=== PATIENT | female | born 1940 | race Caucasian/White ===

== ENCOUNTER 2017-09-22 16:20 | Emergency (ER) | payer MEDICARE, BC ==
[~2017-09-22] VITALS: Ht 165.1 cm; Wt 82.1 kg
[~2017-09-22 16:20] MED LIST: ACET500 PO; ASPI81CH PO; ATOR20 PO; Amiodarone HCl200 MG PO; B Complete1 EACH PO; B-121000 MC2 PO; CHRO200 PO; COENZYME Q-10200 MG PO; CYCL10 PO; Cinnamon500 MG PO; DIGO.25 PO; DIPATR PO; DM MEDS; DOCU100 PO; ESCI10; ESOM20; ESOM20 PO; ESOMEPRAZOLE MA40 MG PO; HYDACE5 PO; HYDCHL12.5 PO; HYDCHL25; HYDCHL25 PO; LEVE500 PO; LEVO750 PO; LISI5 PO; LOSA25 PO; MAGCHL64ER PO; METF500 PO; METF500C; METF500C PO; METFORMIN PO; METO100ER; METO100ER PO; METO25 PO; METO50ER PO; MULVITMIND PO; Metoprolol Succ25 MG PO; Nexium40 MG PO; Norco 5-325 Ta1 EACH PO; OMEG1CAP30 PO; OMEGA XL PO; OMEP20ER PO; OXYC5 PO; PARO20 PO; PIOG30 PO; PIOG45 PO; POTA10T PO; POTCHL10ER; POTCHL10ER PO; Prilosec Otc20 MG PO; RED YEAST RICE PO; REPA1 PO; ROXICODONE5 MG PO; SEIZURE MEDS; Tambocor100 MG PO; VITAMIN D33000 UNIT PO; WARF2.5 PO; WARF5 PO; WARF6 PO; WARF7.5 PO; XARELTO20 MG PO; Zofran Odt4 MG PO; Zofran4 MG PO
[2017-09-22 17:10] LABS: BASOPHILS ABSOLUTE AUTO 0.02 K/mm3 (0.00-0.23); BASOPHILS PERCENT AUTO 0 % (0-2); EOSINOPHILS PERCENT AUTO 0 % (0-6); Hematocrit 40.9 % (33.0-51.0); Hemoglobin 14.3 g/dL (11.5-16.0); IMMATURE GRAN ABSOLUTE AUTO 0.04 K/mm3 (0.00-0.10); IMMATURE GRAN PERCENT AUTO 0 % (0-1); LYMPHOCYTES ABSOLUTE AUTO 0.27 K/mm3 (0.84-5.20); LYMPHOCYTES PERCENT AUTO 2 % (21-46); MONOCYTES ABSOLUTE AUTO 0.24 K/mm3 (0.16-1.47); MONOCYTES PERCENT AUTO 2 % (4-13); Mean Corpuscular HGB 30.5 pg (26.0-34.0); Mean Corpuscular Volume 87 fL (80-100); Mean Platelet Volume 11.1 fL (9.1-12.4); NEUTROPHILS ABSOLUTE AUTO 10.66 K/mm3 (1.96-9.15); NEUTROPHILS PERCENT AUTO 95 % (41-73); Platelet Count 144 K/mm3 (150-400); RDW Coefficient Variation 12.7 % (11.7-14.2); RDW Standard Deviation 40.2 fL (35.1-46.3); Red Blood Cell Count 4.69 M/mm3 (3.80-5.20); White Blood Cell Count 11.23 K/mm3 (4.00-11.30)
[2017-09-22 17:21] LABS: Source, Urine Catheter
[2017-09-22 17:25] LABS: Appearance, Urine Clear (Clear); Blood, Urine Neg (Neg); Color, Urine Yellow (P-Yellow); Glucose Qualitative, Urine Neg (Neg); Ketones, Urine 1+ (Neg); Leukocyte Esterase, Urine 1+ (Neg); Nitrite, Urine Pos (Neg); Protein, Urine Neg (Neg); Urobilinogen, Urine 2+ (Normal)
[2017-09-22 17:31] LABS: Alanine Aminotransfer (ALT/SGP 197 U/L (12-78); Albumin, Blood 3.8 g/dL (3.4-5.0); Albumin/Globulin Ratio 1.2 (0.8-1.8); Alk Phos 91 U/L (50-136); Anion Gap 14 mmol/L (6-16); Aspartate Aminotrans (AST/SGOT 258 U/L (12-37); Bilirubin, Total 2.2 mg/dL (0.1-1.0); Blood Urea Nitrogen 17 mg/dL (8-24); Bun/Creatinine Ratio 22.3 (12.0-20.0); CO2, Blood 22 mmol/L (21-32); Calcium, Blood 9.1 mg/dL (8.5-10.1); Chloride, Blood 98 mmol/L (98-108); Creatinine, Blood 0.76 mg/dL (0.40-1.00); Globulin, Blood 3.1 g/dL (2.2-4.0); Glomerular Filtration Rate >60 (60-); Glucose, Blood 151 mg/dL (70-99); Potassium, Blood 3.3 mmol/L (3.5-5.5); Sodium, Blood 134 mmol/L (136-145); Total Protein, Blood 6.9 g/dL (6.4-8.2)
[2017-09-22 17:39] LABS: Bilirubin, Urine 1+ (Neg)
[2017-09-22 17:42] LABS: Bacteria Many /hpf; Squamous Epithelial Cells Rare /hpf (Few)
[2017-09-22] MEDS ORDERED: WARF6 PO (19:53)
[2017-09-22] MEDS ORDERED: WARF1 PO (19:58)
[2017-09-22] MEDS ORDERED: WARF5 PO (20:00)
== END 2017-09-22 20:17 | disposition short-term general hospital (02) ==
LOC: ER 16:20
PROVIDERS: Physician Assistant
DX: K80.70 Calculus of gallbladder and bile duct without cholecystitis without obstruction (principal); K85.10 Biliary acute pancreatitis without necrosis or infection; N39.0 Urinary tract infection, site not specified; I10 Essential (primary) hypertension; E11.9 Type 2 diabetes mellitus without complications; I48.91 Unspecified atrial fibrillation; K21.9 Gastro-esophageal reflux disease without esophagitis; G40.909 Epilepsy, unspecified, not intractable, without status epilepticus; Z88.5 Allergy status to narcotic agent; Z88.0 Allergy status to penicillin; Z88.8 Allergy status to other drugs, medicaments and biological substances; Z88.6 Allergy status to analgesic agent; Z79.899 Other long term (current) drug therapy; Z79.84 Long term (current) use of oral hypoglycemic drugs; Z79.82 Long term (current) use of aspirin; Z87.891 Personal history of nicotine dependence
CPT/HCPCS: 36415; 74176; 80053; 81001; 83690; 85025; 87077; 87086; 87186; 93005; 93010; 96365; 96367; 96375; 96376; 99285; J0696; J0744; J1170; J2405; J7120

== ENCOUNTER 2018-03-05 06:15 | Day surgery (SDC) | payer MEDICARE, BC ==
[~2018-03-05] VITALS: Ht 167.6 cm; Wt 75.8 kg
[~2018-03-05 06:15] MED LIST changes: +WARF1 PO
== END 2018-03-05 08:18 | disposition home or self-care (01) ==
LOC: ORSCSDS 06:15
PROVIDERS: Ophthalmology
PROC: 08RK3JZ Replacement of Left Lens with Synthetic Substitute, Percutaneous Approach (ICD-10-PCS; principal; 2018-03-05 07:30)
DX: H25.12 Age-related nuclear cataract, left eye (principal); E11.36 Type 2 diabetes mellitus with diabetic cataract; F32.9 Major depressive disorder, single episode, unspecified; E78.00 Pure hypercholesterolemia, unspecified; I10 Essential (primary) hypertension; J45.909 Unspecified asthma, uncomplicated; I48.91 Unspecified atrial fibrillation; Z87.891 Personal history of nicotine dependence; Z79.82 Long term (current) use of aspirin; Z79.84 Long term (current) use of oral hypoglycemic drugs; Z79.899 Other long term (current) drug therapy
CPT/HCPCS: 82947; J2250; J3010; J3301; J7040; V2632

== ENCOUNTER 2018-11-02 20:51 | Emergency (ER) | payer MEDICARE, BC ==
[~2018-11-02] VITALS: Ht 165.1 cm; Wt 72.6 kg
[2018-11-02 22:06] LABS: BASOPHILS ABSOLUTE AUTO 0.04 K/mm3 (0.00-0.23); BASOPHILS PERCENT AUTO 1 % (0-2); EOSINOPHILS ABSOLUTE AUTO 0.13 K/mm3 (0.00-0.68); EOSINOPHILS PERCENT AUTO 2 % (0-6); Hematocrit 46.1 % (33.0-51.0); Hemoglobin 16.1 g/dL (11.5-16.0); IMMATURE GRAN ABSOLUTE AUTO 0.02 K/mm3 (0.00-0.10); IMMATURE GRAN PERCENT AUTO 0 % (0-1); LYMPHOCYTES ABSOLUTE AUTO 1.06 K/mm3 (0.84-5.20); LYMPHOCYTES PERCENT AUTO 19 % (21-46); MONOCYTES ABSOLUTE AUTO 0.59 K/mm3 (0.16-1.47); MONOCYTES PERCENT AUTO 11 % (4-13); Mean Corpuscular HGB 31.1 pg (26.0-34.0); Mean Corpuscular HGB Conc 34.9 g/dL (31.5-36.5); Mean Corpuscular Volume 89 fL (80-100); Mean Platelet Volume 10.9 fL (9.1-12.4); NEUTROPHILS ABSOLUTE AUTO 3.64 K/mm3 (1.96-9.15); NEUTROPHILS PERCENT AUTO 66 % (41-73); Platelet Count 174 K/mm3 (150-400); RDW Coefficient Variation 12.3 % (11.7-14.2); RDW Standard Deviation 40.4 fL (35.1-46.3); Red Blood Cell Count 5.18 M/mm3 (3.80-5.20); White Blood Cell Count 5.48 K/mm3 (4.00-11.30)
[2018-11-02 22:25] LABS: Alanine Aminotransfer (ALT/SGP 36 U/L (12-78); Albumin, Blood 3.9 g/dL (3.4-5.0); Albumin/Globulin Ratio 1.2 (0.8-1.8); Alk Phos 83 U/L (50-136); Anion Gap 8 mmol/L (6-16); Aspartate Aminotrans (AST/SGOT 22 U/L (12-37); Bilirubin, Total 0.4 mg/dL (0.1-1.0); Blood Urea Nitrogen 19 mg/dL (8-24); Bun/Creatinine Ratio 26.1 (12.0-20.0); CO2, Blood 29 mmol/L (21-32); Calcium, Blood 9.2 mg/dL (8.5-10.1); Chloride, Blood 100 mmol/L (98-108); Creatinine, Blood 0.73 mg/dL (0.40-1.00); Globulin, Blood 3.3 g/dL (2.2-4.0); Glomerular Filtration Rate >60 (60-); Glucose, Blood 139 mg/dL (70-99); Potassium, Blood 3.9 mmol/L (3.5-5.5); Sodium, Blood 137 mmol/L (136-145); Total Protein, Blood 7.2 g/dL (6.4-8.2); Troponin I <0.015 ng/mL (0.000-0.040)
[2018-11-02 23:17] LABS: Magnesium, Blood 1.7 mg/dL (1.6-2.4)
[2018-11-02 23:18] LABS: Thyroid Stimulating Hormone 1.97 uIU/mL (0.360-4.800)
== END 2018-11-03 01:12 | disposition home or self-care (01) ==
LOC: ER 20:51
PROVIDERS: Emergency Medicine
DX: I48.91 Unspecified atrial fibrillation (principal); E11.9 Type 2 diabetes mellitus without complications; I10 Essential (primary) hypertension; Z88.6 Allergy status to analgesic agent; Z88.0 Allergy status to penicillin; Z88.5 Allergy status to narcotic agent; Z88.8 Allergy status to other drugs, medicaments and biological substances; Z79.84 Long term (current) use of oral hypoglycemic drugs; Z79.899 Other long term (current) drug therapy; Z87.891 Personal history of nicotine dependence
CPT/HCPCS: 71046; 80053; 83735; 83880; 84443; 84484; 85025; 93005; 93010; J7030

== ENCOUNTER 2018-12-19 00:19 | Observation (INO) | payer MEDICARE, OTHER, BC ==
[~2018-12-19] VITALS: Ht 167.6 cm; Wt 79.4 kg
[~2018-12-19 00:19] MED LIST changes: -METFORMIN PO
[2018-12-19 00:43] LABS: BASOPHILS ABSOLUTE AUTO 0.07 K/mm3 (0.00-0.23); BASOPHILS PERCENT AUTO 1 % (0-2); EOSINOPHILS ABSOLUTE AUTO 0.17 K/mm3 (0.00-0.68); EOSINOPHILS PERCENT AUTO 2 % (0-6); Hematocrit 45.1 % (33.0-51.0); Hemoglobin 15.4 g/dL (11.5-16.0); IMMATURE GRAN ABSOLUTE AUTO 0.05 K/mm3 (0.00-0.10); IMMATURE GRAN PERCENT AUTO 1 % (0-1); LYMPHOCYTES ABSOLUTE AUTO 4.29 K/mm3 (0.84-5.20); LYMPHOCYTES PERCENT AUTO 40 % (21-46); MONOCYTES ABSOLUTE AUTO 0.73 K/mm3 (0.16-1.47); MONOCYTES PERCENT AUTO 7 % (4-13); Mean Corpuscular HGB 30.9 pg (26.0-34.0); Mean Corpuscular HGB Conc 34.1 g/dL (31.5-36.5); Mean Corpuscular Volume 90 fL (80-100); Mean Platelet Volume 10.9 fL (9.1-12.4); NEUTROPHILS ABSOLUTE AUTO 5.56 K/mm3 (1.96-9.15); NEUTROPHILS PERCENT AUTO 51 % (41-73); Platelet Count 208 K/mm3 (150-400); RDW Standard Deviation 42.5 fL (35.1-46.3); Red Blood Cell Count 4.99 M/mm3 (3.80-5.20); White Blood Cell Count 10.87 K/mm3 (4.00-11.30)
[2018-12-19 01:03] LABS: Alanine Aminotransfer (ALT/SGP 27 U/L (12-78); Albumin/Globulin Ratio 1.2 (0.8-1.8); Alk Phos 84 U/L (50-136); Anion Gap 16 mmol/L (6-16); Aspartate Aminotrans (AST/SGOT 13 U/L (12-37); Bilirubin, Total 0.4 mg/dL (0.1-1.0); Blood Urea Nitrogen 17 mg/dL (8-24); Bun/Creatinine Ratio 19.5 (12.0-20.0); CO2, Blood 20 mmol/L (21-32); Calcium, Blood 9.3 mg/dL (8.5-10.1); Chloride, Blood 97 mmol/L (98-108); Creatinine, Blood 0.87 mg/dL (0.40-1.00); Ethanol (Alcohol), Blood, Med <3 mg/dL; Globulin, Blood 3.3 g/dL (2.2-4.0); Glomerular Filtration Rate >60 (60-); Glucose, Blood 159 mg/dL (70-99); Potassium, Blood 3.5 mmol/L (3.5-5.5); Sodium, Blood 133 mmol/L (136-145); Total Protein, Blood 7.3 g/dL (6.4-8.2)
[2018-12-19 01:50] LABS: Source, Urine Clean Catch
[2018-12-19 01:52] LABS: Bilirubin, Urine Neg (Neg); Blood, Urine 1+ (Neg); Glucose Qualitative, Urine Neg (Neg); Ketones, Urine 1+ (Neg); Leukocyte Esterase, Urine 1+ (Neg); Nitrite, Urine Neg (Neg); Protein, Urine 2+ (Neg); Urobilinogen, Urine NORM (Normal)
[2018-12-19 01:53] LABS: Appearance, Urine Clear (Clear); Color, Urine Yellow (P-Yellow)
[2018-12-19 02:02] LABS: Bacteria Mod /hpf; Red Blood Cells, Urine 0-2 /hpf (0-2); Squamous Epithelial Cells Not Seen /hpf (Few); White Blood Cells, Urine 0-2 /hpf (0-5)
[2018-12-19 02:05] LABS: U Amphetamine Screen Not Detected; U Barbituate Screen Not Detected; U Benzodiazapine Screen Not Detected; U Buprenorphine Screen Not Detected; U Cannabinoids Screen Not Detected; U Cocaine Screen Not Detected; U Methadone Screen Not Detected; U Methamphetamine Screen Not Detected; U Opiates Screen Not Detected; U Oxycodone Screen Not Detected; U Phencyclidine Screen Not Detected; U Propoxyphene Screen Not Detected
[2018-12-19] MEDS ORDERED: OXYC5 PO (02:30)
[2018-12-19] MEDS ORDERED: LEVE500 PO (02:30)
[2018-12-19] MEDS ORDERED: WARF5 PO (02:32)
[2018-12-19] MEDS ORDERED: WARF7.5 PO (02:33)
[2018-12-19 03:51] LABS: Source, Urine Catheter
[2018-12-19 03:54] LABS: Bilirubin, Urine Neg (Neg); Blood, Urine 1+ (Neg); Glucose Qualitative, Urine Neg (Neg); Ketones, Urine Neg (Neg); Leukocyte Esterase, Urine Neg (Neg); Nitrite, Urine Neg (Neg); Protein, Urine 1+ (Neg); Urobilinogen, Urine NORM (Normal); pH, Urine 6.5 (5.0-8.0)
[2018-12-19 03:55] LABS: Appearance, Urine Clear (Clear); Color, Urine Yellow (P-Yellow)
[2018-12-19 04:00] LABS: Bacteria Mod /hpf; Red Blood Cells, Urine 0-2 /hpf (0-2); Squamous Epithelial Cells Not Seen /hpf (Few); White Blood Cells, Urine 0-2 /hpf (0-5)
--- NOTE | 2018-12-19 05:45 | NUR ---
0435 PT ARRIVED TO ICU 12 FROM ER PCU ADMIT. PT IS A/O TO PERSON, PLACE, CITY, DATE, AND PRESIDENT. C/O CORTES AND KEEPS EYE'S CLOSED. AT 0508 PT YELLING "I'M GOING TO HAVE ANOTHER SEIZURE!" PT STARTED VOMITING THICK EMESIS. BP HAS BEEN ELEVATED BUT TALKED TO DR. AGUIRRE ABOUT THAT EARLIER AND GOT ORDERS FOR HYDRALAZINE. GAVE 2MG OF ATIVAN. AFTER ATIVAN PT IS SLEEPY. WILL MUMBLE RESPONSES TO QUESTIONS. AT 0528 PT HAD A 6 SECOND PAUSE ON TELEMETRY. PT STILL AROUSES AND MUMBLES. WHEN ASKED IF SHE HAS PAIN SHE MUMBLES "YES IN MY HEAD". CALLED DR. AGUIRRE AND REPORTED EVENTS. NO NEW ORDERS. LAB IN DRAWING AM LABS NOW. WILL MONITOR CLOSELY, NO FAMILY PRESENT.
[2018-12-19 06:15] LABS: Hematocrit 42.2 % (33.0-51.0); Hemoglobin 14.9 g/dL (11.5-16.0); Mean Corpuscular HGB 30.3 pg (26.0-34.0); Mean Corpuscular HGB Conc 35.3 g/dL (31.5-36.5); Mean Platelet Volume 11.1 fL (9.1-12.4); Platelet Count 163 K/mm3 (150-400); RDW Coefficient Variation 12.6 % (11.7-14.2); RDW Standard Deviation 39.1 fL (35.1-46.3); Red Blood Cell Count 4.92 M/mm3 (3.80-5.20); White Blood Cell Count 11.39 K/mm3 (4.00-11.30)
[2018-12-19 06:16] LABS: Mean Corpuscular Volume 86 fL (80-100)
[2018-12-19 06:30] LABS: Alanine Aminotransfer (ALT/SGP 23 U/L (12-78); Albumin, Blood 3.7 g/dL (3.4-5.0); Albumin/Globulin Ratio 1.2 (0.8-1.8); Alk Phos 70 U/L (50-136); Anion Gap 10 mmol/L (6-16); Aspartate Aminotrans (AST/SGOT 14 U/L (12-37); Bilirubin, Total 0.5 mg/dL (0.1-1.0); Blood Urea Nitrogen 14 mg/dL (8-24); Bun/Creatinine Ratio 22.1 (12.0-20.0); CO2, Blood 25 mmol/L (21-32); Calcium, Blood 8.6 mg/dL (8.5-10.1); Chloride, Blood 99 mmol/L (98-108); Creatinine, Blood 0.63 mg/dL (0.40-1.00); Globulin, Blood 3.2 g/dL (2.2-4.0); Glomerular Filtration Rate >60 (60-); Glucose, Blood 170 mg/dL (70-99); Potassium, Blood 3.4 mmol/L (3.5-5.5); Sodium, Blood 134 mmol/L (136-145); Total Protein, Blood 6.9 g/dL (6.4-8.2)
--- NOTE | 2018-12-19 06:41 | NUR ---
PT HAD 2 MORE 8 SECOND PAUSES ON TELEMETRY. PT WILL AROUSE TO PAINFUL STIMULUS AND MUMBLES RESPONSES. HYDRALAZINE WAS GIVEN FOR HYPERTENSION. DID NOT START IVF DUE TO HYPERTENSION.
[2018-12-19 07:06] LABS: International Normalized Ratio 2.55; Prothrombin Time Results 24.8 Sec (9.7-11.5)
--- NOTE | 2018-12-19 07:41 | NUR ---
START OF SHIFT NOTE: RECEIVED REPORT FROM GALI RUBIO, ASSUMED CARE, PATIENT IS LYING IN BED, RECEIVED ATIVAN DURING NOC SHIFT AND IS SEDATED AT THIS TIME, UNABLE TO ANSWER ANY QUESTIONS, REPOSITIONED FOR COMFORT, PATIENT'S DAUGHTER CALLED AND WAS GIVEN AN UPDATE ON PATIENT CONDITION, LUNG SOUNDS DIMINISHED, SINUS TACHY, PATIENT AT TIMES THRASHING IN BED, BOWEL TONES PRESENT AND HYPERATIVE IN LUQ, HYPOACTIVE IN REMAINING QUADRANTS, BAUM CATHETER IN PLACE, DRAINING CLEAR YELLOW URINE, CALL LIGHT IN REACH, WILL CONTINUE TO MONITOR.
--- NOTE | 2018-12-19 08:45 | NUR ---
MRI SCREENING FORM CHECKED WITH DAUGHTER AND RETURNED TO MRI.
--- NOTE | 2018-12-19 09:07 | NUR ---
PATIENT CONTINUES TO BE SEDATED, DAUGHTER AT BEDSIDE, SPOKE WITH CARL, SECOND DAUGHTER ON PHONE, OBTAINED HISTORY FROM CRAL, BOTH DAUGHTERS WERE UPDATED ON PATIENT STATUS, CALL LIGHT IN REACH, WILL CONTINUE TO MONITOR.
--- NOTE | 2018-12-19 10:30 | NUR ---
PATIENT TO MRI VIA BED.
--- NOTE | 2018-12-19 10:55 | NUR ---
PATIENT RETURNED FROM MRI AT 10:55 VIA BED, PATIENT IS NOW ALERT AND ORIENTED, ABLE TO FOLLOW COMMANDS, SPEECH IS GOOD, DAUGHTER AT BEDSIDE, CALL LIGHT IN REACH, WILL CONTINUE TO MONITOR.
--- NOTE | 2018-12-19 12:43 | NUR ---
DR. EGAN UPDATED ON PATIENT CONDITION AND NEW ORDER FOR BG CHECKS EVERY 6 HOURS RECEIVED.
--- NOTE | 2018-12-19 13:53 | NUR ---
PATIENT CONTINUES TO SLEEP WITH PERIODS OF SHORT AWAKENINGS, WILL ATTEMPT ICE CHIPS WHEN PATIENT IS WIDE AWAKE, ALSO GAVE 5MG METOPROLOL IV ORDERED FOR A CONTINUOUS HR OF 125 TO 128, DAUGHTER AND FAMILY MEMBERS AT BEDSIDE, CALL LIGHT IN REACH, WILL CONTINUE TO MONITOR.
--- NOTE | 2018-12-19 14:58 | NUR ---
PATIENT HAD A 9.694 PAUSE AFTER RECEIVING IV METOPROLOL FOR A-FIB WITH HR IN MID TO UPPER 120'S ORDERED, DR. EGAN NOTIFIED, CARDIOLOGY CONSULT CALLED, EKG DONE, ECHO ORDERED PER DR. CARRILLO, PATIENT TOLERATED WELL, PATIENT IS ASYMPTOMATIC, CALL LIGHT IN REACH, WILL CONTINUE TO MONITOR.
--- NOTE | 2018-12-19 15:27 | NUR ---
ECHOCARDIOGRAM COMPLETE
--- NOTE | 2018-12-19 15:30 | NUR ---
DR. CARRILLO IN TO SEE PATIENT AND SPEAK WITH DAUGHTER AT BEDSIDE.
--- NOTE | 2018-12-19 16:25 | NUR ---
DR. CARRILLO IN, OBTAINED CONSENT FROM DAUGHTER FOR PPM PLACEMENT, PATIENT WILL RECEIVE ONE TIME DOSE OF K-DUR TONIGHT, NPO AFTER MIDNIGHT, PATIENT WILL RECEIVE 2 UNITS OF FFP'S AT 5 AM TOMORROW MORNING BEFORE PERMANENT PACEMAKER PLACEMENT, ALSO PLACE PACER PADS ON PATIENT.
--- NOTE | 2018-12-19 17:32 | NUR ---
SHIFT SUMMARY NOTE: PATIENT SLEPT MOST OF THE SHIFT, HAD RECEIVED ATIVAN DURING MOBILE APPLICATION TESTER AND THEN RECEIVED 50 MCG OF FENTANYL FOR HEADACHE AND GENERALIZED PAIN, MRI WAS DONE AND PATIENT TOLERATED WELL, AFTER MRI PATIENT WAS RETURNED TO ROOM AND WAS ALERT AND ORIENTED, ABLE TO FOLLOW COMMANDS AND ANSWER QUESTIONS, PATIENT WAS OBSERVED TO HAVE A 9.[address] EGAN WAS NOTIFIED, CARDIOLOGY CONSULTED, DR. CARRILLO IN TO SEE PATIENT AND NEW ORDERS WERE GIVEN, PATIENT WILL HAVE PERMANENT PACEMAKER PLACED TOMORROW, NPO AFTER MIDNIGHT, TO BE GIVEN 2 UNITS OF FFP'S AT 0500 ORDERED, TEMPORARY PACER PADS ARE ON PATIENT, PATIENT TOOK K-DUR PILLS WITH SOME WATER AND ICE CHIPS, NO PROBLEM SWALLOWING, DINNER ORDERED, PATIENT SLEEPING AGAIN, FOR DETAILS SEE SHIFT ASSESSMENT DOCUMENTATION AND NURSES NOTES, CALL LIGHT IN REACH, WILL CONTINUE TO MONITOR AND GIVE REPORT TO ONCOMING MOBILE APPLICATION TESTER.
[2018-12-19 17:45] LABS: Troponin I 0.112 ng/mL (0.000-0.040)
[2018-12-19 17:48] LABS: Thyroid Stimulating Hormone 0.872 uIU/mL (0.360-4.800)
--- NOTE | 2018-12-19 19:15 | NUR ---
ASSUMED CARE OF PT, REPORT RCV'D FROM GALI CHOPRA. PT SLEEPING BUT AROUSABLE LAYING IN BED WITH HOB AT 40 DEGREE ANGLE. PT'S DAUGHTER'S AT BEDSIDE INQUIRING ABOUT MOTHER'S CURRENT CONDITION AND PLANS FOR INTERVENTIONS, I.E. PACEMAKER, IN A.M. PT APPEARS VERY DROWSY BUT IS ABLE TO AROUSE AND FOLLOW COMMANDS. PT COMPLAINS OF LEFT SHOULDER PAIN, PT STATES THIS PAIN BEGAN YESTERDAY BUT DENIES ANY ACCOMPANYING CHEST OR RADIATING PAIN. POSITIONED ARM ON PILLOW AND READJUSTED PT IN BED AND PT REPORTS SLIGHT RELIEF. PT AWARE OF PLAN TO INFUSE 2 UNITS FFP AND TO IMPLANT PERMANENT PACEMAKER IN MORNING. PT DENIES NEEDS AT THIS TIME. SEE FULL SHIFT ASSESSMENT.
[2018-12-20 05:22] LABS: International Normalized Ratio 2.02; Prothrombin Time Results 20.1 Sec (9.7-11.5)
--- NOTE | 2018-12-20 06:17 | NUR ---
SHIFT SUMMARY PT SLEPT WELL THROUGHOUT THE NIGHT. NO PERIODS OF CARDIAC PAUSE AFTER 1900. PT WAS HYPOTENSIVE THROUGHOUT MAJORITY OF THE NIGHT IS CURRENTLY NORMOTENSIVE WITH NO INTERVENTIONS NEEDED. PT RECEIVING UNIT [address] CARRILLO IN TO SEE PATIENT THIS MORNING TO DISCUSS UPCOMING PROCEDURE. PT DENIES QUESTIONS REGARDING PACER PLACEMENT. WILL REPORT TO DAYSHIFT NURSE.
--- NOTE | 2018-12-20 07:15 | NUR ---
START OF SHIFT NOTE: RECEIVED REPORT FROM SANTOS BARROW RN, ASSUMED CARE, PATIENT IS AWAKE, ALERT AND ORIENTED, DAUGHTERS AT BEDSIDE, PATIENT IS NPO FOR PENDING PERMANENT PACEMAKER PLACEMENT, LUNG SOUNDS CLEAR BUT DIMINISHED, NSR AT THIS TIME WITH HR IN 70'S, DENIES PAIN, AFEBRILE, CALL LIGHT IN REACH, WILL CONTINUE TO MONITOR.
--- NOTE | 2018-12-20 08:20 | NUR ---
DR. EGAN IN TO SEE PATIENT, NO NEW ORDERS RECEIVED.
--- NOTE | 2018-12-20 09:25 | NUR ---
PATIENT TO CLINIC OFFICE ASSISTANT FOR PPM PLACEMENT VIA BED.
--- NOTE | 2018-12-20 12:23 | NUR ---
PATIENT RETURNED FROM [facility] VIA BED, PATIENT IS AWAKE AND ALERT AND ORIENTED, FOLLOWS COMMANDS, LEFT UPPER EXTREMITY BANDAGED, PATIENT INSTRUCTED TO NOT USE LEFT ARM TO PUSH/PULL/LIFT, DISCHARGE ORDERS RECEIVED, FAMILY AT BEDSIDE, CALL LIGHT IN REACH, WILL CONTINUE TO MONITOR.
[2018-12-20] MEDS ORDERED: LEVE500 PO (13:32)
--- NOTE | 2018-12-20 13:49 | NUR ---
PATIENT EATING LUNCH WITH GOOD APPETITE, FAMILY AT BEDSIDE, CALL LIGHT IN REACH, WILL CONTINUE TO MONITOR, VSS AT THIS TIME.
--- NOTE | 2018-12-20 14:30 | NUR ---
CALLED DR. CAMPOS, HE WANTS TO SEE PATIENT IN ONE WEEK FOR WOUND CHECK, WILL NOT COME BY BEFORE DISCHARGE.
--- NOTE | 2018-12-20 16:05 | NUR ---
PATIENT DISCHARGED TO HOME, DISCHARGE PAPERWORK WRITTEN AND VERBAL PROVIDED AND EXPLAINED TO PATIENT AND DAUGHTER, BOTH VERBALIZED UNDERSTANDING, BAUM CATHETER WAS REMOVED AND PATIENT TOLERATED WELL, PIV'S ON RFA AND LAC WERE REMOVED, BOTH WITH TIPS AND CATHETERS INTACT, PATIENT TOLERATED WELL, PATIENT WAS DRESSED, AND LEFT HOSPITAL VIA WHEELCHAIR, DAUGHTER PROVIDED RIDE HOME.
== END 2018-12-20 16:04 | disposition home or self-care (01) ==
LOC: ER 00:19 → ICUW 00:20
PROVIDERS: Emergency Medicine; Internal Medicine Cardiovascular Disease; ADMIT Internal Medicine
DX: G40.909 Epilepsy, unspecified, not intractable, without status epilepticus (principal); I49.5 Sick sinus syndrome; I48.0 Paroxysmal atrial fibrillation; R29.898 Other symptoms and signs involving the musculoskeletal system; R82.90 Unspecified abnormal findings in urine; I67.9 Cerebrovascular disease, unspecified; E11.9 Type 2 diabetes mellitus without complications; I10 Essential (primary) hypertension; E78.5 Hyperlipidemia, unspecified; I65.23 Occlusion and stenosis of bilateral carotid arteries; I65.02 Occlusion and stenosis of left vertebral artery; F32.9 Major depressive disorder, single episode, unspecified; Z88.6 Allergy status to analgesic agent; Z88.8 Allergy status to other drugs, medicaments and biological substances; Z79.899 Other long term (current) drug therapy; Z88.5 Allergy status to narcotic agent; Z88.0 Allergy status to penicillin
CPT/HCPCS: 33208; 36415; 36430; 51702; 70450; 70496; 70498; 70551; 71045; 71046; 80053; 81001; 82947; 84145; 84146; 84443; 84484; 85025; 85027; 85610; 86900; 86901; 87086; 93005; 93010; 93308; 93321; 96365; 96365-59; 96375; 96375-59; 96376; 99152; 99153; 99285-25; C1785; C1898; G0378; G0480; J0360; J1953; J2060; J2250; J2405; J3010; J7030; P9059; P9612; Q9967

== ENCOUNTER 2019-06-12 21:08 | Inpatient (IN) | payer MEDICARE, BC ==
[~2019-06-12] VITALS: Ht 165.1 cm; Wt 84.7 kg
[2019-06-12] MEDS ORDERED: OXYC5 PO (21:29)
[2019-06-12 21:34] LABS: BASOPHILS ABSOLUTE AUTO 0.05 K/mm3 (0.00-0.23); BASOPHILS PERCENT AUTO 1 % (0-2); EOSINOPHILS ABSOLUTE AUTO 0.15 K/mm3 (0.00-0.68); EOSINOPHILS PERCENT AUTO 2 % (0-6); Hematocrit 42.5 % (33.0-51.0); Hemoglobin 14.5 g/dL (11.5-16.0); IMMATURE GRAN ABSOLUTE AUTO 0.03 K/mm3 (0.00-0.10); IMMATURE GRAN PERCENT AUTO 0 % (0-1); LYMPHOCYTES ABSOLUTE AUTO 2.02 K/mm3 (0.84-5.20); LYMPHOCYTES PERCENT AUTO 27 % (21-46); MONOCYTES ABSOLUTE AUTO 0.54 K/mm3 (0.16-1.47); MONOCYTES PERCENT AUTO 7 % (4-13); Mean Corpuscular HGB 30.8 pg (26.0-34.0); Mean Corpuscular HGB Conc 34.1 g/dL (31.5-36.5); Mean Corpuscular Volume 90 fL (80-100); Mean Platelet Volume 10.9 fL (9.1-12.4); NEUTROPHILS ABSOLUTE AUTO 4.59 K/mm3 (1.96-9.15); NEUTROPHILS PERCENT AUTO 62 % (41-73); Platelet Count 179 K/mm3 (150-400); RDW Standard Deviation 42.9 fL (35.1-46.3); Red Blood Cell Count 4.71 M/mm3 (3.80-5.20); White Blood Cell Count 7.38 K/mm3 (4.00-11.30)
[2019-06-12 21:48] LABS: Alanine Aminotransfer (ALT/SGP 31 U/L (12-78); Albumin, Blood 3.8 g/dL (3.4-5.0); Albumin/Globulin Ratio 1.2 (0.8-1.8); Alk Phos 90 U/L (50-136); Anion Gap 9 mmol/L (6-16); Aspartate Aminotrans (AST/SGOT 16 U/L (12-37); Bilirubin, Total 0.3 mg/dL (0.1-1.0); Blood Urea Nitrogen 22 mg/dL (8-24); Bun/Creatinine Ratio 29.8 (12.0-20.0); CO2, Blood 27 mmol/L (21-32); Calcium, Blood 8.9 mg/dL (8.5-10.1); Chloride, Blood 102 mmol/L (98-108); Creatinine, Blood 0.74 mg/dL (0.40-1.00); Globulin, Blood 3.2 g/dL (2.2-4.0); Glomerular Filtration Rate >60 (60-); Glucose, Blood 209 mg/dL (70-99); Potassium, Blood 3.4 mmol/L (3.5-5.5); Sodium, Blood 138 mmol/L (136-145); Troponin I <0.015 ng/mL (0.000-0.040)
[2019-06-13] LABS: International Normalized Ratio 2.13; Prothrombin Time Results 21.1 Sec (9.7-11.5)
[2019-06-13 05:09] LABS: Hematocrit 37.9 % (33.0-51.0); Hemoglobin 13.1 g/dL (11.5-16.0); Mean Corpuscular HGB 31.2 pg (26.0-34.0); Mean Corpuscular HGB Conc 34.6 g/dL (31.5-36.5); Mean Corpuscular Volume 90 fL (80-100); Mean Platelet Volume 10.9 fL (9.1-12.4); Platelet Count 150 K/mm3 (150-400); RDW Standard Deviation 42.9 fL (35.1-46.3); White Blood Cell Count 5.91 K/mm3 (4.00-11.30)
[2019-06-13 05:24] LABS: International Normalized Ratio 2.26; Prothrombin Time Results 22.2 Sec (9.7-11.5)
[2019-06-13 05:29] LABS: Alanine Aminotransfer (ALT/SGP 27 U/L (12-78); Albumin, Blood 3.2 g/dL (3.4-5.0); Albumin/Globulin Ratio 1.1 (0.8-1.8); Alk Phos 61 U/L (50-136); Anion Gap 4 mmol/L (6-16); Aspartate Aminotrans (AST/SGOT 15 U/L (12-37); Bilirubin, Total 0.4 mg/dL (0.1-1.0); Blood Urea Nitrogen 20 mg/dL (8-24); Bun/Creatinine Ratio 27.1 (12.0-20.0); CO2, Blood 29 mmol/L (21-32); Calcium, Blood 8.6 mg/dL (8.5-10.1); Chloride, Blood 106 mmol/L (98-108); Creatinine, Blood 0.74 mg/dL (0.40-1.00); Globulin, Blood 2.9 g/dL (2.2-4.0); Glomerular Filtration Rate >60 (60-); Glucose, Blood 133 mg/dL (70-99); Potassium, Blood 3.7 mmol/L (3.5-5.5); Sodium, Blood 139 mmol/L (136-145); Total Protein, Blood 6.1 g/dL (6.4-8.2)
[2019-06-13 05:34] LABS: Troponin I 0.05 ng/mL (0.000-0.040)
--- NOTE | 2019-06-13 07:32 | NUR ---
06/13/19 0655 DENIES ANY CHEST PAIN OR SOB. IV INFILTRATED AND THREE RNS TRIED NEW SITE BUT UNABLE. WILL NOTIFY DAYSHIFT RN ABOUT POSSIBLE ULTRASOUND GUIDED IV. VITALS STABLE.
[2019-06-13] MEDS ORDERED: AMLO10 PO (11:10)
[2019-06-13 13:45] LABS: CPK Creatine Kinase 69 U/L (26-193); Troponin I <0.015 ng/mL (0.000-0.040)
--- NOTE | 2019-06-13 19:27 | NUR ---
SHIFT SUMMARY: PT A&O; CALM AND COOPERATIVE WITH CARE. PT C/O CHEST PAIN X2 THIS SHIFT; PT RESPONDS TO NITROGLYCERIN SL. ONE-DAY STRESS TEST PERFORMED THIS SHIFT; AWAITING RESULTS; PATIENT MAY BE ABLE TO D/C TO HOME AFTER RESULTS. REPORT GIVEN TO ONCOMING RN.
--- NOTE | 2019-06-14 05:03 | NUR ---
SHIFT SUMMARY PT IS A 78 Y/O FEMALE, ADMITTED FOR CHEST PAIN. SHE IS A&O X 4, AND A 1PA UP IN THE ROOM WITH A FWW. PER DAY SHIFT REPORT, PT HAD ONE EPISODE OF CHEST PAIN DURING DAY SHIFT AT 1700 AND AGAIN RIGHT AT SHIFT CHANGE. BOTH EPISODES WERE RESOLVED WITH ONE NITRO TABLED. PT DID NOT REPORT ANY FURTHER CHEST PAIN DURING THE NIGHT, THOUGH SHE WAS MEDICATED ONCE FOR BACK PAIN WITH PRN OXYCODONE. NO COMPLAINTS OF NAUSEA OR SOB. PT'S BP WAS ELEVATED AT START OF SHIFT AT 178/96, BUT CAME DOWN TO 146/66 AFTER SHE RECEIVED HER BEDTIME APRESOLINE. ALL OTHER VITALS STABLE. TELE MONITOR IN PLACE, SHOWING NSR IN THE 70-80S. NO OTHER ACUTE CHANGES IN PT CONDITION NOTED. THIS RN SPOKE TO HOSPITALIST DR EGAN IN THE EVENING REGARDING PT'S DC. PER DR EGAN PT'S LEXISCAN CAME BACK NORMAL, BUT HE AGREED TO KEEP THE PT OVERNIGHT TO MONITOR HER FURTHER CHEST PAIN. NO OTHER ACUTE CHANGES IN PT CONDITION NOTED. WILL CONTINUE TO MONITOR AND TREAT PER EMAR UNTIL HAND OFF TO DAY SHIFT RN.
--- NOTE | 2019-06-14 09:56 | NUR ---
CHEST PAIN DR CAMPBELL SAW PT AND AFTER PT MADE PHONE CALL, WAS EXPRESSING BEING UPSET "W/NEW MEDS", PT EXPLAINING DR VISIT TO PERSON ON PHONE THEN BEGAN COMPLAINING OF CP & PUSHED CALL LIGHT (THIS RN WAS OUTSIDE OF DOOR DURING EVENT), BP 190/92, HR 105; THIS RN ASKED PT TO COMPLETE PHONE CALL AND RELAX UNTIL PAIN RESOLVES. PT REPORTED BEING FREE W/IN 15 MINS, REPORTED TO DR EGAN.
[2019-06-14 11:02] LABS: International Normalized Ratio 1.42; Prothrombin Time Results 14.6 Sec (9.7-11.5)
--- NOTE | 2019-06-14 15:33 | NUR ---
SHIFT SUMMARY PT HAD NO NEW CHANGES THIS SHIFT, 1X CP PREVIOUSLY NOTED WHICH RESOLVED W/OUT INTERVENTIONS, FAMILY @ BEDSIDE T/O MOST OF SHIFT & FOLLOWED PT TO [facility]ART CENTER FOR ANGIO. BELONGINGS PACKED BY FAMILY MOVED TO PCU #[id number] @ [phone], PAINT MIXER MACHINE TO CALL WHEN READY FOR REPORT.
--- NOTE | 2019-06-14 16:37 | NUR ---
XFER TO KATHERYN REPORT GIVEN TO KATHERYN SHARPE RN @ [id number]
--- NOTE | 2019-06-14 17:06 | NUR ---
PT ARRIVED FROM [facility] [employer] [employer] VIA BED; PT STILL SLEEPY; INITIAL BP 134/90; PT ON 2 L NC; O2 SATS >95 ON R DIGITS; STRONG RADIAL PULSES; TR BAND ON R WRIST W/ 13 AIR; CALL LIGHT IN REACH; BED IN LOWEST POSITION; WILL CONTINUE TO MONITOR CLOSELY
--- NOTE | 2019-06-14 19:19 | NUR ---
UPDATE PT A&O; FAMILY AT BEDSIDE; PT HAD DINNER SHE WAS FINISHING; JOSÉ MANZANO AMIFERNANDO GTT STARTED; NS 200ML/HR STARTED; PT ON 1.5 L NC; O2 SATS >95 ON R DIGITS ; R TR BAND IN PLACE, NO AIR REMOVED AT THIS TIME; FINGERS WARM; O2 SATS TAKEN ON SECOND DIGIT; SCANT DRIED BLOOD UNDER BAND, NO CHANGE SINCE ARRIVAL TO UNIT; HAND OFF GIVEN TO NOC RN
--- NOTE | 2019-06-14 22:15 | NUR ---
CARE ASSUMPTION PT A&O X4. BP ELEVATED, OTHERWISE VSS. MONITOR SHOWS AFIB, HR 90's-130's. AMIO GTT INFUSING PER ORDERS. PT C/O CORTES, MEDICATED PER PT REQUEST/EMAR. PT INFORMED OF DISCHARGE ORDERS BY DAY HOSPITALIST. PT UPSET, STATING "MY FAMILY ALREADY WENT HOME AND I'M STILL HAVING ALL KINDS OF ISSUES. I HAVE A HEADACHE, AND MY BLOOD PRESSURE IS HIGHER THAN NORMAL." TR BAND TO R RADIAL ACCESS SITE STILL IN RECOVERY. SITE WNL, NO BLEEEDING, NO HEMATOMA. PT ASSURED OF NOT HAVING TO LEAVE IN MIDDLE OF NIGHT AND NEED FOR COMPLETE TR BAND RECOVERY & BETTER HR & BP CONTROL PRIOR TO DISCHARGE. CALL TO MD GERONIMO TO NOTIFY OF STANDING DISCHARGE ORDERS BY HOSPITALIST BUT CARDIOLOGY HAS NOT SIGNED OFF ON CASE. MD FURTHER NOTIFIED OF TR RECOVERY, BP, AND AFIB W/ AMIO GTT. AGREEABLE TO KEEP PT OVERNIGHT. WILL CONTINUE TO MONITOR AND PROVIDE CARE.
[2019-06-14 23:54] LABS: International Normalized Ratio 1.28; Prothrombin Time Results 13.3 Sec (9.7-11.5)
--- NOTE | 2019-06-15 05:10 | NUR ---
CONVERT TO NSR CONVERSION FROM AFIB TO NSR, HR 60's @ 0449 THIS AM WHILE PT SLEEPING. CONVERSION STRIP PRINTED AND PLACED IN CHART.
--- NOTE | 2019-06-15 06:21 | NUR ---
SHIFT SUMMARY PT A&O X4. BP ELEVATED THIS SHIFT W/ IMPROVEMENT POST TX PER EMAR. OTHERWISE VSS. PT CONVERTED FROM AFIB TO NSR THIS SHIFT @ 0449 WHILE ON AMIO GTT PER ORDERS. AMIIO GTT CONTINUES TO INFUSE @ MAINTENANCE RATE. PT C/O HEADACHE @ CARE ASSUMPTION, MEDICATED PER EMAR W/ PT REPORT OF RELIEF AFTER TX AND SLEEP. R RADIAL ACCESS SITE RECOVERY WNL W/ NO BLEEDING, NO HEMATOMA. TRANSPARENT DRESSING AND ARM BOARD IN PLACE TO SITE. WILL CONTINUE TO MONITOR AND PROVIDE CARE UNTIL REPORT OFF TO DAY SHIFT RN.
[2019-06-15 09:20] LABS: International Normalized Ratio 1.25
--- NOTE | 2019-06-15 11:26 | NUR ---
AMIODORONE GTT STOPPED AT 1125 PER ORDERS.
--- NOTE | 2019-06-15 16:00 | NUR ---
SHIFT SUMMARY NO ACUTE CHANGES THIS SHIFT. PT REMAINS IN NSR PER TELE. AMIODORONE GTT DC'D PER ORDERS. R RADIAL SITE REMAINS CDI WITH ARM BOARD IN PLACE. PT DENIES CHEST PAIN/TIGHTNESS OR SOB. UP TO BATHROOM WITH 1 SBA. JAISON ADA DIET. PLAN IS TO CONT MONITORING PT AND POSSIBLE DISCHARGE HOME TOMORROW. PT USES CALL LIGHT APPROPRIATELY.
--- NOTE | 2019-06-15 19:19 | NUR ---
CARE ASSUMPTION PT A&O X4. VSS. MONITOR SHOWS NSR, HR 70's. LUNG SOUNDS CLEAR, SPO2 > 92% ON RA. R RADIAL ACCESS SITE WNL, NO BLEEDING, NO HEMATOMA. ARM BOARD IN PLACE TO R WRIST. PT REPORTS "GOD HAS TAKEN REALLY GOOD CARE OF ME. I SHOULD BE GOING TO MY DAUGHTER'S AFTER THIS, SHE WANTS TO LOOK AFTER ME FOR A FEW DAYS." PT IN GOOD SPIRITS W/ GOOD FAMILY SUPPORT. PT DENIES PAIN, REPORTING RECENT MEDICATION TX FOR BACK PAIN BY DAY NURSE W/ FULL RELIEF AT THIS TIME. WILL CONTINUE TO MONITOR AND PROVIDE CARE.
[2019-06-16 05:46] LABS: BASOPHILS ABSOLUTE AUTO 0.03 K/mm3 (0.00-0.23); BASOPHILS PERCENT AUTO 0 % (0-2); EOSINOPHILS ABSOLUTE AUTO 0.21 K/mm3 (0.00-0.68); EOSINOPHILS PERCENT AUTO 3 % (0-6); Hematocrit 39.7 % (33.0-51.0); Hemoglobin 13.8 g/dL (11.5-16.0); IMMATURE GRAN ABSOLUTE AUTO 0.04 K/mm3 (0.00-0.10); IMMATURE GRAN PERCENT AUTO 1 % (0-1); LYMPHOCYTES ABSOLUTE AUTO 1.12 K/mm3 (0.84-5.20); LYMPHOCYTES PERCENT AUTO 16 % (21-46); MONOCYTES ABSOLUTE AUTO 0.57 K/mm3 (0.16-1.47); MONOCYTES PERCENT AUTO 8 % (4-13); Mean Corpuscular HGB 30.6 pg (26.0-34.0); Mean Corpuscular HGB Conc 34.8 g/dL (31.5-36.5); Mean Corpuscular Volume 88 fL (80-100); Mean Platelet Volume 10.9 fL (9.1-12.4); NEUTROPHILS ABSOLUTE AUTO 5.26 K/mm3 (1.96-9.15); NEUTROPHILS PERCENT AUTO 73 % (41-73); Platelet Count 155 K/mm3 (150-400); RDW Coefficient Variation 12.9 % (11.7-14.2); RDW Standard Deviation 41.4 fL (35.1-46.3); Red Blood Cell Count 4.51 M/mm3 (3.80-5.20); White Blood Cell Count 7.23 K/mm3 (4.00-11.30)
[2019-06-16 05:57] LABS: International Normalized Ratio 1.24; Prothrombin Time Results 12.9 Sec (9.7-11.5)
--- NOTE | 2019-06-16 06:09 | NUR ---
SHIFT SUMMARY PT CONTINUES TO BE A&O X4. VSS. PT SUSTAINING NSR, HR 60's-80's. LUNG SOUNDS CLEAR, SPO2 > 92% ON RA. R RADIAL ACCESS SITE REMAINS WNL. PT SLEEPING SOUNDLY MAJORITY OF SHIFT. WILL CONTINUE TO MONITOR AND PROVIDE CARE UNTIL REPORT OFF TO DAY SHIFT RN.
[2019-06-16 06:18] LABS: Alanine Aminotransfer (ALT/SGP 27 U/L (12-78); Albumin, Blood 3.3 g/dL (3.4-5.0); Albumin/Globulin Ratio 1.1 (0.8-1.8); Alk Phos 55 U/L (50-136); Anion Gap 7 mmol/L (6-16); Aspartate Aminotrans (AST/SGOT 31 U/L (12-37); Bilirubin, Total 0.9 mg/dL (0.1-1.0); Blood Urea Nitrogen 16 mg/dL (8-24); Bun/Creatinine Ratio 22.6 (12.0-20.0); CO2, Blood 28 mmol/L (21-32); Calcium, Blood 8.6 mg/dL (8.5-10.1); Chloride, Blood 100 mmol/L (98-108); Creatinine, Blood 0.71 mg/dL (0.40-1.00); Glomerular Filtration Rate >60 (60-); Glucose, Blood 151 mg/dL (70-99); Potassium, Blood 3.7 mmol/L (3.5-5.5); Sodium, Blood 135 mmol/L (136-145); Total Protein, Blood 6.3 g/dL (6.4-8.2)
--- NOTE | 2019-06-16 08:00 | NUR ---
ASSUMED CARE NOTE: ASSUMED CARE OF PT @ 0700, RECEVIEID REPORT FROM SAMI TALBERT. PT IS A/OX3. PT IS ON RA WITH SP02 ABOVE 90%. PT DENIES ANY SP OR SOB AT THIS TIME. PT IS IN SINUS ARRHYTHMIA WITH HR IN THE 80'S. WILL MONITOR PT T/O SHIFT. BED AT LOWEST LEVEL, CALL LIGHT WITHIN REACH.
--- NOTE | 2019-06-16 18:20 | NUR ---
SHIFT SUMMARY: NO SIGNIFICANT CHANGES SINCE LAST NOTE. PT CONTINUES TO DENY CP. VVS. PT ON RA WITH SPO2 ABOVE 90%. PT WAS ABLE TO GET INTO SHOWER AND AMBULATE IN ROOM W/O DIFFICULTIES. NSR WITH HR IN THE 60'S -70'S. R RADIAL SITE W/ NO CHANGE. WILL CONTINUE TO MONITOR UNTIL REPORT IS GIVEN TO ONCOMING SHIFT.
[2019-06-17 03:55] LABS: International Normalized Ratio 1.38; Prothrombin Time Results 14.2 Sec (9.7-11.5)
--- NOTE | 2019-06-17 06:09 | NUR ---
SHIFT SUMMARY PT SLEEPING IN ROOM COMFORTABLY AT THIS TIME. PT SLEPT WELL T/O NIGHT. RESP EVEN UNLABORED ON RA W. SATS >92%. DENIED ANY CP OR SOB. PT DENIED ANY OTHER PAIN T/O NIGHT. PT DID REPORT SOME DIZZINESS EARLY ON IN SHIFT, USDED CALL LIGHT APPROPRIATELY TO GET OUT OF BED. REPORTED DIZZINESS HAS SINCE DECREASED. DENIED OTHER NEEDS. CALL LIGHT IN REACH.
[2019-06-17] MEDS ORDERED: ASPI81CH PO (11:16)
[2019-06-17] MEDS ORDERED: CLOP75 PO (11:17)
[2019-06-17] MEDS ORDERED: LIPITOR80 MG PO (11:17)
[2019-06-17] MEDS ORDERED: LOSA50 PO (11:18)
[2019-06-17] MEDS ORDERED: SOTO80 PO (11:18)
--- NOTE | 2019-06-17 11:44 | NUR ---
PT IS SETTING UP EATING THIS AM AND FEELING GOOD OTHER THAN GENERAL SORE IN LOW BACK FROM PROLONGED BED REST. PT REQUESTING PO NOTED PER EMAR. R TR SITE CLEAR, VSS, NO C/O PAIN OR CURRENT DISTRESS. PO MEDS PER ORDER.
--- NOTE | 2019-06-17 11:48 | NUR ---
OLD R AC IF SITE IS CLEAR FROM REDNESS BUT PT NOTES SL SORENESS REMAINING.
--- NOTE | 2019-06-17 13:25 | NUR ---
PT DISCHARGE COMPLETED PER LAMONT TALBERT. MEDICATION INSTRUCTIONS GIVEN TO PT AND DAUGHTER, THERE WAS NO IV SITE, PT VERBALIZED UNDERSTANDING.
== END 2019-06-17 13:24 | disposition home or self-care (01) | DRG 247 ==
LOC: ER 21:08 → MEDS 21:09 → PCU 06-14 16:57
PROVIDERS: Emergency Medicine; Internal Medicine Cardiovascular Disease; Internal Medicine Interventional Cardiology; ADMIT Internal Medicine
PROC: 027135Z Dilation of Coronary Artery, Two Arteries with Two Drug-eluting Intraluminal Devices, Percutaneous Approach (ICD-10-PCS; principal; 2019-06-14)
PROC: B211YZZ Fluoroscopy of Multiple Coronary Arteries using Other Contrast (ICD-10-PCS; 2019-06-14)
DX: I21.4 Non-ST elevation (NSTEMI) myocardial infarction (principal); I10 Essential (primary) hypertension; I48.0 Paroxysmal atrial fibrillation; E11.9 Type 2 diabetes mellitus without complications; E78.5 Hyperlipidemia, unspecified; M79.7 Fibromyalgia; F32.9 Major depressive disorder, single episode, unspecified; E87.6 Hypokalemia; G40.909 Epilepsy, unspecified, not intractable, without status epilepticus; G89.29 Other chronic pain; G47.33 Obstructive sleep apnea (adult) (pediatric); K21.9 Gastro-esophageal reflux disease without esophagitis; Z88.5 Allergy status to narcotic agent; Z88.0 Allergy status to penicillin; Z88.8 Allergy status to other drugs, medicaments and biological substances; Z79.01 Long term (current) use of anticoagulants; Z79.84 Long term (current) use of oral hypoglycemic drugs; Z79.899 Other long term (current) drug therapy; Z87.891 Personal history of nicotine dependence; Z95.0 Presence of cardiac pacemaker
CPT/HCPCS: 36415; 71046; 78452; 80053; 82550; 82947; 84484; 85025; 85027; 85347; 85610; 92960; 93005; 93010; 93017; 93454; 96361; 96374; 96375; 99152; 99153; 99285-25; A9500; C1725; C1769; C1874; C1887; C1894; C9600; C9601; G0378; J0282; J0706; J1644; J2250; J2405; J2785; J3010; J7030; J7060; Q9967

== ENCOUNTER 2019-07-14 12:34 | Emergency (ER) | payer MEDICARE, BC ==
[~2019-07-14] VITALS: Ht 167.6 cm; Wt 104.3 kg
[~2019-07-14 12:34] MED LIST changes: +AMLO10 PO; +CLOP75 PO; +LIPITOR80 MG PO; +LOSA50 PO; +SOTO80 PO
[2019-07-14 13:29] LABS: BASOPHILS ABSOLUTE AUTO 0.05 K/mm3 (0.00-0.23); BASOPHILS PERCENT AUTO 1 % (0-2); EOSINOPHILS ABSOLUTE AUTO 0.17 K/mm3 (0.00-0.68); EOSINOPHILS PERCENT AUTO 3 % (0-6); Hematocrit 42.9 % (33.0-51.0); Hemoglobin 14.5 g/dL (11.5-16.0); IMMATURE GRAN ABSOLUTE AUTO 0.01 K/mm3 (0.00-0.10); IMMATURE GRAN PERCENT AUTO 0 % (0-1); LYMPHOCYTES ABSOLUTE AUTO 1.93 K/mm3 (0.84-5.20); LYMPHOCYTES PERCENT AUTO 29 % (21-46); MONOCYTES PERCENT AUTO 9 % (4-13); Mean Corpuscular HGB 30.6 pg (26.0-34.0); Mean Corpuscular HGB Conc 33.8 g/dL (31.5-36.5); Mean Corpuscular Volume 91 fL (80-100); Mean Platelet Volume 10.4 fL (9.1-12.4); NEUTROPHILS ABSOLUTE AUTO 4.01 K/mm3 (1.96-9.15); NEUTROPHILS PERCENT AUTO 59 % (41-73); Platelet Count 193 K/mm3 (150-400); RDW Coefficient Variation 12.9 % (11.7-14.2); RDW Standard Deviation 42.1 fL (35.1-46.3); Red Blood Cell Count 4.74 M/mm3 (3.80-5.20); White Blood Cell Count 6.77 K/mm3 (4.00-11.30)
[2019-07-14 13:41] LABS: International Normalized Ratio 2.41; Prothrombin Time Results 24.5 Sec (9.7-11.5)
[2019-07-14] MEDS ORDERED: WARF1 (13:46)
[2019-07-14 14:04] LABS: Alanine Aminotransfer (ALT/SGP 41 U/L (12-78); Albumin, Blood 3.8 g/dL (3.4-5.0); Albumin/Globulin Ratio 1.2 (0.8-1.8); Alk Phos 89 U/L (50-136); Anion Gap 8 mmol/L (6-16); Aspartate Aminotrans (AST/SGOT 21 U/L (12-37); Bilirubin, Total 0.4 mg/dL (0.1-1.0); Blood Urea Nitrogen 23 mg/dL (8-24); Bun/Creatinine Ratio 31.3 (12.0-20.0); CO2, Blood 26 mmol/L (21-32); Chloride, Blood 105 mmol/L (98-108); Creatinine, Blood 0.74 mg/dL (0.40-1.00); Globulin, Blood 3.3 g/dL (2.2-4.0); Glomerular Filtration Rate >60 (60-); Glucose, Blood 98 mg/dL (70-99); Potassium, Blood 3.8 mmol/L (3.5-5.5); Sodium, Blood 139 mmol/L (136-145); Total Protein, Blood 7.1 g/dL (6.4-8.2)
[2019-07-14 15:05] LABS: Source, Urine Catheter
[2019-07-14 15:08] LABS: Bilirubin, Urine Neg (Neg); Blood, Urine Neg (Neg); Glucose Qualitative, Urine Neg (Neg); Ketones, Urine Neg (Neg); Leukocyte Esterase, Urine 1+ (Neg); Nitrite, Urine Neg (Neg); Protein, Urine Neg (Neg); Specific Gravity, Urine 1.005 (1.003-1.022); Urobilinogen, Urine NORM (Normal); pH, Urine 6.5 (5.0-8.0)
[2019-07-14 15:16] LABS: Appearance, Urine Clear (Clear); Color, Urine Pale Yellow (P-Yellow)
[2019-07-14 15:18] LABS: Bacteria Rare /hpf; Red Blood Cells, Urine 0-2 /hpf (0-2); Squamous Epithelial Cells Few /hpf (Few)
[2019-07-14 15:25] LABS: U Amphetamine Screen Not Detected; U Barbituate Screen Not Detected; U Benzodiazapine Screen Not Detected; U Buprenorphine Screen Not Detected; U Cannabinoids Screen Not Detected; U Cocaine Screen Not Detected; U Methadone Screen Not Detected; U Methamphetamine Screen Not Detected; U Opiates Screen Not Detected; U Oxycodone Screen Not Detected; U Phencyclidine Screen Not Detected; U Propoxyphene Screen Not Detected
== END 2019-07-14 16:16 | disposition home or self-care (01) ==
LOC: ER 12:34
PROVIDERS: Emergency Medicine
DX: G45.9 Transient cerebral ischemic attack, unspecified (principal); E78.5 Hyperlipidemia, unspecified; I10 Essential (primary) hypertension; E11.9 Type 2 diabetes mellitus without complications; I48.91 Unspecified atrial fibrillation; G40.909 Epilepsy, unspecified, not intractable, without status epilepticus
CPT/HCPCS: 36415; 70450; 80053; 81001; 85025; 85610; 85730; 87086; 93005; 93010; 99284-25

== ENCOUNTER 2020-02-17 09:07 | Observation (INO) | payer MEDICARE, BC ==
[~2020-02-17] VITALS: Ht 170.2 cm; Wt 78.5 kg
[~2020-02-17 09:07] MED LIST changes: +Aspirin EC81 MG PO; +WARF1
[2020-02-17 09:45] LABS: BASOPHILS ABSOLUTE AUTO 0.05 K/mm3 (0.00-0.23); BASOPHILS PERCENT AUTO 1 % (0-2); EOSINOPHILS ABSOLUTE AUTO 0.08 K/mm3 (0.00-0.68); EOSINOPHILS PERCENT AUTO 1 % (0-6); Hematocrit 43.7 % (33.0-51.0); Hemoglobin 14.3 g/dL (11.5-16.0); IMMATURE GRAN ABSOLUTE AUTO 0.03 K/mm3 (0.00-0.10); IMMATURE GRAN PERCENT AUTO 0 % (0-1); LYMPHOCYTES ABSOLUTE AUTO 1.62 K/mm3 (0.84-5.20); LYMPHOCYTES PERCENT AUTO 23 % (21-46); MONOCYTES ABSOLUTE AUTO 0.52 K/mm3 (0.16-1.47); MONOCYTES PERCENT AUTO 7 % (4-13); Mean Corpuscular HGB 29.4 pg (26.0-34.0); Mean Corpuscular HGB Conc 32.7 g/dL (31.5-36.5); Mean Corpuscular Volume 90 fL (80-100); Mean Platelet Volume 10.7 fL (9.1-12.4); NEUTROPHILS ABSOLUTE AUTO 4.77 K/mm3 (1.96-9.15); NEUTROPHILS PERCENT AUTO 68 % (41-73); Platelet Count 180 K/mm3 (150-400); RDW Coefficient Variation 13.1 % (11.7-14.2); RDW Standard Deviation 43.1 fL (35.1-46.3); Red Blood Cell Count 4.87 M/mm3 (3.80-5.20); White Blood Cell Count 7.07 K/mm3 (4.00-11.30)
[2020-02-17 09:59] LABS: Prothrombin Time Results 20.6 Sec (9.7-11.5)
[2020-02-17 10:08] LABS: Alanine Aminotransfer (ALT/SGP 28 U/L (12-78); Albumin, Blood 3.7 g/dL (3.4-5.0); Albumin/Globulin Ratio 1.1 (0.8-1.8); Alk Phos 66 U/L (50-136); Anion Gap 5 mmol/L (6-16); Aspartate Aminotrans (AST/SGOT 17 U/L (12-37); Bilirubin, Total 0.7 mg/dL (0.1-1.0); Blood Urea Nitrogen 21 mg/dL (8-24); Bun/Creatinine Ratio 26.6 (12.0-20.0); CO2, Blood 28 mmol/L (21-32); Calcium, Blood 9.4 mg/dL (8.5-10.1); Chloride, Blood 103 mmol/L (98-108); Creatinine, Blood 0.79 mg/dL (0.40-1.00); Globulin, Blood 3.4 g/dL (2.2-4.0); Glomerular Filtration Rate >60 (60-); Glucose, Blood 126 mg/dL (70-99); Sodium, Blood 136 mmol/L (136-145); Total Protein, Blood 7.1 g/dL (6.4-8.2)
[2020-02-17 11:46] LABS: Source, Urine Clean Catch
[2020-02-17 11:52] LABS: Appearance, Urine Clear (Clear); Bilirubin, Urine Neg (Neg); Blood, Urine Neg (Neg); Color, Urine Yellow (P-Yellow); Glucose Qualitative, Urine Neg (Neg); Ketones, Urine Neg (Neg); Leukocyte Esterase, Urine Neg (Neg); Nitrite, Urine Pos (Neg); Protein, Urine Neg (Neg); Urobilinogen, Urine NORM (Normal)
[2020-02-17 12:01] LABS: Bacteria Many /hpf
[2020-02-17 12:02] LABS: Squamous Epithelial Cells Few /hpf (Few)
[2020-02-17 12:03] LABS: Red Blood Cells, Urine 0-2 /hpf (0-2)
[2020-02-17] MEDS ORDERED: Potassium Chlo20 ME1 PO ×2 (13:33)
[2020-02-17] MEDS ORDERED: TORSE20 PO ×2 (13:33)
[2020-02-17] MEDS ORDERED: Jantoven5 MG ×2 (13:35)
--- NOTE | 2020-02-17 16:50 | NUR ---
TALKED TO ABOUT BLD PRESS. ORDERED LASIX 20 MG IV ONE TIME AND CLONIDINE 0.1 P.O. FOR SYSTOLIC OVER 180
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
--- NOTE | 2020-02-17 21:17 | NUR ---
RESTING QUIETLY WITH OCCASIONAL AWAKENINGS - I.E. FOR MEDS, ETC. VERBAL RESPONSE APPROPRIATE TO QUESTIONS ASKED. CALL LIGHT IN REACH.
--- NOTE | 2020-02-18 04:45 | NUR ---
SHIFT SUMMARY HAS BEEN RESTING QUIETLY WITH FEW INTERRUPTIONS SINCE HS. IVF INFUSING PER MD ORDERS - SEE MAR FOR DETAILS. CALL LIGHT IN REACH.
[2020-02-18 05:01] LABS: Hematocrit 40.9 % (33.0-51.0); Hemoglobin 13.4 g/dL (11.5-16.0); Mean Corpuscular HGB 29.2 pg (26.0-34.0); Mean Corpuscular HGB Conc 32.8 g/dL (31.5-36.5); Mean Corpuscular Volume 89 fL (80-100); Platelet Count 165 K/mm3 (150-400); RDW Coefficient Variation 13.2 % (11.7-14.2); RDW Standard Deviation 42.6 fL (35.1-46.3); Red Blood Cell Count 4.59 M/mm3 (3.80-5.20); White Blood Cell Count 7.14 K/mm3 (4.00-11.30)
[2020-02-18 05:13] LABS: International Normalized Ratio 1.92; Prothrombin Time Results 19.8 Sec (9.7-11.5)
[2020-02-18 05:34] LABS: Bun/Creatinine Ratio 20.8 (12.0-20.0); Calcium, Blood 8.3 mg/dL (8.5-10.1); Creatinine, Blood 1.01 mg/dL (0.40-1.00); Potassium, Blood 3.1 mmol/L (3.5-5.5)
--- NOTE | 2020-02-18 11:24 | NUR ---
PATIENT IS UP IN THE CHAIR. SHE WORKED WITH PT AND OT THIS MORNING. SEIZURE PADS HAVE BEEN PLACED ON THE SIDERAILS OF THE HOSPITAL BED
--- NOTE | 2020-02-18 18:30 | NUR ---
PATIENT IS ALERT AND ORIENTED AND COOPERATIVE WITH CARE. SHE HAS BEEN INDEPENDENTLY TRANSFERRING FROM BED TO CHAIR TO C. NO COMPLAINTS OF PAIN. SHE HAS FAMILY AT THE BEDSIDE TODAY. TELE IS IN PLACE, NSR AT 68 BPM. SHE WIORKED WITH PT AND OT TODAY. WILL CONTINUE TO MONITOR
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
[2020-02-19 05:12] LABS: Hematocrit 37.9 % (33.0-51.0); Hemoglobin 12.9 g/dL (11.5-16.0); Mean Corpuscular HGB 30.1 pg (26.0-34.0); Mean Corpuscular Volume 89 fL (80-100); Mean Platelet Volume 10.9 fL (9.1-12.4); Platelet Count 136 K/mm3 (150-400); RDW Coefficient Variation 13.2 % (11.7-14.2); RDW Standard Deviation 43.1 fL (35.1-46.3); Red Blood Cell Count 4.28 M/mm3 (3.80-5.20); White Blood Cell Count 5.94 K/mm3 (4.00-11.30)
--- NOTE | 2020-02-19 05:41 | NUR ---
SHIFT SUMMARY PATIENT HAD NO ACUTE CHANGES OBSERVED. AXOX 3 AND ONE ASSIST TO BSC OR CHAIR. CBG 148. PIV REMAINS INTACT. CAMERA ENGINEER REPORTS SB59. VSS/AFEBRILE. DENIES PAIN, SOB, AND N/V. COOPERATIVE WITH CARE. CALL LIGHT IN REACH. BED IN LOWEST POSITION. WILL CONTINUE TO MONITOR UNTIL DAY SHIFT NURSE ASSUMES CARE.
[2020-02-19 05:57] LABS: Anion Gap 6 mmol/L (6-16); Blood Urea Nitrogen 18 mg/dL (8-24); Bun/Creatinine Ratio 20.5 (12.0-20.0); CO2, Blood 26 mmol/L (21-32); Calcium, Blood 8.2 mg/dL (8.5-10.1); Chloride, Blood 107 mmol/L (98-108); Creatinine, Blood 0.88 mg/dL (0.40-1.00); Glomerular Filtration Rate >60 (60-); Glucose, Blood 106 mg/dL (70-99); Potassium, Blood 3.6 mmol/L (3.5-5.5); Sodium, Blood 139 mmol/L (136-145)
[2020-02-19 09:46] LABS: International Normalized Ratio 2.58; Prothrombin Time Results 26.2 Sec (9.7-11.5)
[2020-02-19] MEDS ORDERED: CEPH500 PO ×2 (12:59)
--- NOTE | 2020-02-19 13:42 | NUR ---
PATIENT HAS DISCHARGED AT 1342. DISCHARGE VOLUNTEER IS TAKING THE PATIENT DOWNSTAIRS VIA WHEELCHAIR
== END 2020-02-19 13:51 | disposition home health service (06) ==
LOC: ER 09:07 → MEDS 09:08 → ER 14:11 → MEDS 14:11 → ER 02-18 09:08 → MEDS 02-18 09:08
PROVIDERS: Emergency Medicine; Internal Medicine; Nurse Practitioner Acute Care; Pharmacist; ADMIT Internal Medicine
DX: G92 Toxic encephalopathy (principal); N30.00 Acute cystitis without hematuria; I48.0 Paroxysmal atrial fibrillation; E11.9 Type 2 diabetes mellitus without complications; I10 Essential (primary) hypertension; Z79.01 Long term (current) use of anticoagulants; Z86.73 Personal history of transient ischemic attack (TIA), and cerebral infarction without residual deficits; B96.20 Unspecified Escherichia coli [E. coli] as the cause of diseases classified elsewhere; K21.9 Gastro-esophageal reflux disease without esophagitis; I25.10 Atherosclerotic heart disease of native coronary artery without angina pectoris; F11.20 Opioid dependence, uncomplicated; G89.29 Other chronic pain; M54.9 Dorsalgia, unspecified; G40.909 Epilepsy, unspecified, not intractable, without status epilepticus; Z79.899 Other long term (current) drug therapy; Z88.6 Allergy status to analgesic agent; Z88.8 Allergy status to other drugs, medicaments and biological substances; Z88.0 Allergy status to penicillin; Z79.82 Long term (current) use of aspirin; Z79.02 Long term (current) use of antithrombotics/antiplatelets; Z79.84 Long term (current) use of oral hypoglycemic drugs
CPT/HCPCS: 36415; 70450; 70496; 70498; 80048; 80053; 81001; 82947; 85025; 85027; 85610; 85730; 87040; 87077; 87086; 87186; 93005; 93010; 96365; 96366; 96375; 97110; 97116; 97161; 97165; 97535; 97535-CO; 99285-25; A9270; A9270-GY; G0378; J0360; J0696; J1940; J2405; J3010; J7030; P9612; Q9967

== ENCOUNTER 2020-02-23 22:17 | Emergency (ER) | payer MEDICARE, BC ==
[~2020-02-23] VITALS: Ht 167.6 cm; Wt 78.0 kg
[~2020-02-23 22:17] MED LIST changes: +CEPH500 PO; +Jantoven5 MG; +Potassium Chlo20 ME1 PO; +TORSE20 PO
[2020-02-23 22:44] LABS: BASOPHILS ABSOLUTE AUTO 0.03 K/mm3 (0.00-0.23); BASOPHILS PERCENT AUTO 1 % (0-2); EOSINOPHILS ABSOLUTE AUTO 0.11 K/mm3 (0.00-0.68); EOSINOPHILS PERCENT AUTO 2 % (0-6); Hematocrit 41.2 % (33.0-51.0); Hemoglobin 13.9 g/dL (11.5-16.0); IMMATURE GRAN ABSOLUTE AUTO 0.01 K/mm3 (0.00-0.10); IMMATURE GRAN PERCENT AUTO 0 % (0-1); LYMPHOCYTES ABSOLUTE AUTO 2.12 K/mm3 (0.84-5.20); LYMPHOCYTES PERCENT AUTO 33 % (21-46); MONOCYTES ABSOLUTE AUTO 0.54 K/mm3 (0.16-1.47); MONOCYTES PERCENT AUTO 8 % (4-13); Mean Corpuscular HGB 29.9 pg (26.0-34.0); Mean Corpuscular HGB Conc 33.7 g/dL (31.5-36.5); Mean Corpuscular Volume 89 fL (80-100); Mean Platelet Volume 11.3 fL (9.1-12.4); NEUTROPHILS PERCENT AUTO 56 % (41-73); Platelet Count 176 K/mm3 (150-400); RDW Coefficient Variation 13.2 % (11.7-14.2); RDW Standard Deviation 42.7 fL (35.1-46.3); Red Blood Cell Count 4.65 M/mm3 (3.80-5.20); White Blood Cell Count 6.41 K/mm3 (4.00-11.30)
[2020-02-23 23:02] LABS: Anion Gap 7 mmol/L (6-16); Blood Urea Nitrogen 16 mg/dL (8-24); Bun/Creatinine Ratio 17.2 (12.0-20.0); CO2, Blood 29 mmol/L (21-32); Calcium, Blood 9.4 mg/dL (8.5-10.1); Chloride, Blood 102 mmol/L (98-108); Creatinine, Blood 0.93 mg/dL (0.40-1.00); Glomerular Filtration Rate >60 (60-); Glucose, Blood 122 mg/dL (70-99); Potassium, Blood 3.5 mmol/L (3.5-5.5); Sodium, Blood 138 mmol/L (136-145)
[2020-02-23 23:17] LABS: Source, Urine Clean Catch
[2020-02-23 23:19] LABS: Bilirubin, Urine Neg (Neg); Blood, Urine 1+ (Neg); Glucose Qualitative, Urine Neg (Neg); Ketones, Urine Neg (Neg); Leukocyte Esterase, Urine 1+ (Neg); Nitrite, Urine Neg (Neg); Protein, Urine Neg (Neg); Specific Gravity, Urine 1.005 (1.003-1.022); Urobilinogen, Urine NORM (Normal)
[2020-02-23 23:21] LABS: Appearance, Urine Clear (Clear); Color, Urine Yellow (P-Yellow)
[2020-02-23 23:29] LABS: Bacteria Mod /hpf; Red Blood Cells, Urine 0-2 /hpf (0-2); Squamous Epithelial Cells Few /hpf (Few); White Blood Cells, Urine 0-2 /hpf (0-5)
== END 2020-02-24 00:20 | disposition home or self-care (01) ==
LOC: ER 22:17
PROVIDERS: Physician Assistant
DX: R53.1 Weakness (principal); R20.2 Paresthesia of skin; R53.83 Other fatigue; Z88.6 Allergy status to analgesic agent; Z88.5 Allergy status to narcotic agent; Z88.0 Allergy status to penicillin; Z88.8 Allergy status to other drugs, medicaments and biological substances; Z79.82 Long term (current) use of aspirin; Z79.899 Other long term (current) drug therapy; Z79.2 Long term (current) use of antibiotics; Z79.84 Long term (current) use of oral hypoglycemic drugs; E11.9 Type 2 diabetes mellitus without complications; I48.0 Paroxysmal atrial fibrillation; I10 Essential (primary) hypertension; K21.9 Gastro-esophageal reflux disease without esophagitis; G47.33 Obstructive sleep apnea (adult) (pediatric); Z87.891 Personal history of nicotine dependence
CPT/HCPCS: 80048; 81001; 85025; 93005; 93010; 99285-25

== ENCOUNTER 2020-06-28 12:22 | Emergency (ER) | payer MEDICARE, BC ==
[~2020-06-28] VITALS: Ht 167.6 cm; Wt 78.0 kg
[~2020-06-28 12:22] MED LIST changes: -Jantoven5 MG; +MONDOXYNE NL100 MG PO
[2020-06-28 13:13] LABS: BASOPHILS ABSOLUTE AUTO 0.04 K/mm3 (0.00-0.23); BASOPHILS PERCENT AUTO 1 % (0-2); EOSINOPHILS ABSOLUTE AUTO 0.14 K/mm3 (0.00-0.68); EOSINOPHILS PERCENT AUTO 2 % (0-6); Hematocrit 42.1 % (33.0-51.0); IMMATURE GRAN ABSOLUTE AUTO 0.02 K/mm3 (0.00-0.10); IMMATURE GRAN PERCENT AUTO 0 % (0-1); LYMPHOCYTES ABSOLUTE AUTO 1.95 K/mm3 (0.84-5.20); LYMPHOCYTES PERCENT AUTO 28 % (21-46); MONOCYTES ABSOLUTE AUTO 0.45 K/mm3 (0.16-1.47); MONOCYTES PERCENT AUTO 7 % (4-13); Mean Corpuscular HGB 30.2 pg (26.0-34.0); Mean Corpuscular HGB Conc 33.3 g/dL (31.5-36.5); Mean Corpuscular Volume 91 fL (80-100); Mean Platelet Volume 10.9 fL (9.1-12.4); NEUTROPHILS ABSOLUTE AUTO 4.27 K/mm3 (1.96-9.15); NEUTROPHILS PERCENT AUTO 62 % (41-73); Platelet Count 177 K/mm3 (150-400); RDW Coefficient Variation 12.8 % (11.7-14.2); RDW Standard Deviation 42.5 fL (35.1-46.3); Red Blood Cell Count 4.63 M/mm3 (3.80-5.20); White Blood Cell Count 6.87 K/mm3 (4.00-11.30)
[2020-06-28 13:20] LABS: Alanine Aminotransfer (ALT/SGP 37 U/L (12-78); Albumin, Blood 3.4 g/dL (3.4-5.0); Alk Phos 79 U/L (50-136); Anion Gap 7 mmol/L (6-16); Aspartate Aminotrans (AST/SGOT 36 U/L (12-37); Bilirubin, Total 0.7 mg/dL (0.1-1.0); Blood Urea Nitrogen 30 mg/dL (8-24); Bun/Creatinine Ratio 41.6 (12.0-20.0); CO2, Blood 26 mmol/L (21-32); Calcium, Blood 9.1 mg/dL (8.5-10.1); Chloride, Blood 104 mmol/L (98-108); Creatinine, Blood 0.72 mg/dL (0.40-1.00); Globulin, Blood 3.5 g/dL (2.2-4.0); Glomerular Filtration Rate >60 (60-); Glucose, Blood 125 mg/dL (70-99); Sodium, Blood 137 mmol/L (136-145); Total Protein, Blood 6.9 g/dL (6.4-8.2)
[2020-06-28 13:28] LABS: International Normalized Ratio 1.76; Prothrombin Time Results 18.2 Sec (9.7-11.5)
== END 2020-06-28 15:53 | disposition home or self-care (01) ==
LOC: ER 12:22
PROVIDERS: Emergency Medicine
DX: G45.9 Transient cerebral ischemic attack, unspecified (principal); E83.42 Hypomagnesemia; R79.1 Abnormal coagulation profile; E11.9 Type 2 diabetes mellitus without complications; I10 Essential (primary) hypertension; I25.10 Atherosclerotic heart disease of native coronary artery without angina pectoris; I48.91 Unspecified atrial fibrillation; K21.9 Gastro-esophageal reflux disease without esophagitis; Z79.899 Other long term (current) drug therapy; Z79.01 Long term (current) use of anticoagulants; Z79.84 Long term (current) use of oral hypoglycemic drugs; Z79.02 Long term (current) use of antithrombotics/antiplatelets; Z88.5 Allergy status to narcotic agent; Z88.0 Allergy status to penicillin; Z88.8 Allergy status to other drugs, medicaments and biological substances; Z87.891 Personal history of nicotine dependence; Z95.5 Presence of coronary angioplasty implant and graft
CPT/HCPCS: 36415; 70450; 80053; 83735; 85025; 85610; 93005; 93010; 99285-25

== ENCOUNTER 2020-07-02 17:03 | Emergency (ER) | payer MEDICARE, BC ==
[~2020-07-02] VITALS: Ht 167.6 cm; Wt 77.1 kg
[2020-07-07] MEDS ORDERED: WARF5 PO (04:00)
[2020-07-07] MEDS ORDERED: TORSE20 PO (14:24)
[2020-07-07] MEDS ORDERED: HYDR10 PO (14:28)
== END 2020-07-02 19:07 | disposition home or self-care (01) ==
LOC: ER 17:03
DX: S01.111A Laceration without foreign body of right eyelid and periocular area, initial encounter (principal); E11.9 Type 2 diabetes mellitus without complications; I10 Essential (primary) hypertension; I25.10 Atherosclerotic heart disease of native coronary artery without angina pectoris; I48.91 Unspecified atrial fibrillation; K21.9 Gastro-esophageal reflux disease without esophagitis; Z79.84 Long term (current) use of oral hypoglycemic drugs; Z79.899 Other long term (current) drug therapy; Z79.02 Long term (current) use of antithrombotics/antiplatelets; Z79.01 Long term (current) use of anticoagulants; Z88.5 Allergy status to narcotic agent; Z88.8 Allergy status to other drugs, medicaments and biological substances; Z88.0 Allergy status to penicillin; Z86.73 Personal history of transient ischemic attack (TIA), and cerebral infarction without residual deficits; Z87.891 Personal history of nicotine dependence; W01.198A Fall on same level from slipping, tripping and stumbling with subsequent striking against other object, initial encounter
CPT/HCPCS: 70450; 99284-25

== ENCOUNTER 2020-07-08 09:57 | Emergency (ER) | payer MEDICARE, BC ==
[~2020-07-08] VITALS: Ht 167.6 cm; Wt 123.4 kg
[~2020-07-08 09:57] MED LIST changes: +HYDR10 PO
[2020-07-08 10:34] LABS: BASOPHILS ABSOLUTE AUTO 0.05 K/mm3 (0.00-0.23); BASOPHILS PERCENT AUTO 1 % (0-2); EOSINOPHILS ABSOLUTE AUTO 0.14 K/mm3 (0.00-0.68); EOSINOPHILS PERCENT AUTO 2 % (0-6); Hematocrit 43.6 % (33.0-51.0); Hemoglobin 14.8 g/dL (11.5-16.0); IMMATURE GRAN ABSOLUTE AUTO 0.02 K/mm3 (0.00-0.10); IMMATURE GRAN PERCENT AUTO 0 % (0-1); LYMPHOCYTES ABSOLUTE AUTO 1.53 K/mm3 (0.84-5.20); LYMPHOCYTES PERCENT AUTO 23 % (21-46); MONOCYTES ABSOLUTE AUTO 0.38 K/mm3 (0.16-1.47); MONOCYTES PERCENT AUTO 6 % (4-13); Mean Corpuscular HGB 30.1 pg (26.0-34.0); Mean Corpuscular HGB Conc 33.9 g/dL (31.5-36.5); Mean Corpuscular Volume 89 fL (80-100); Mean Platelet Volume 11.5 fL (9.1-12.4); NEUTROPHILS ABSOLUTE AUTO 4.47 K/mm3 (1.96-9.15); NEUTROPHILS PERCENT AUTO 68 % (41-73); Platelet Count 246 K/mm3 (150-400); RDW Coefficient Variation 12.8 % (11.7-14.2); RDW Standard Deviation 41.8 fL (35.1-46.3); Red Blood Cell Count 4.91 M/mm3 (3.80-5.20); White Blood Cell Count 6.59 K/mm3 (4.00-11.30)
[2020-07-08 10:44] LABS: International Normalized Ratio 1.32; Prothrombin Time Results 13.9 Sec (9.7-11.5)
[2020-07-08 10:52] LABS: Alanine Aminotransfer (ALT/SGP 30 U/L (12-78); Albumin, Blood 3.8 g/dL (3.4-5.0); Albumin/Globulin Ratio 1.2 (0.8-1.8); Alk Phos 69 U/L (50-136); Anion Gap 8 mmol/L (6-16); Aspartate Aminotrans (AST/SGOT 19 U/L (12-37); Bilirubin, Total 0.8 mg/dL (0.1-1.0); Blood Urea Nitrogen 37 mg/dL (8-24); Bun/Creatinine Ratio 43.3 (12.0-20.0); CO2, Blood 30 mmol/L (21-32); Calcium, Blood 9.9 mg/dL (8.5-10.1); Chloride, Blood 101 mmol/L (98-108); Creatinine, Blood 0.86 mg/dL (0.40-1.00); Globulin, Blood 3.3 g/dL (2.2-4.0); Glomerular Filtration Rate >60 (60-); Glucose, Blood 190 mg/dL (70-99); Potassium, Blood 3.6 mmol/L (3.5-5.5); Sodium, Blood 139 mmol/L (136-145); Total Protein, Blood 7.1 g/dL (6.4-8.2)
[2020-07-08 10:56] LABS: Magnesium, Blood 1.7 mg/dL (1.6-2.4); Phosphorus, Blood 3.7 mg/dL (2.5-4.9)
== END 2020-07-08 12:35 | disposition home or self-care (01) ==
LOC: ER 09:57
PROVIDERS: Physician Assistant
DX: R53.1 Weakness (principal); R20.0 Anesthesia of skin; E11.9 Type 2 diabetes mellitus without complications; I10 Essential (primary) hypertension; I48.91 Unspecified atrial fibrillation; K21.9 Gastro-esophageal reflux disease without esophagitis; Z88.5 Allergy status to narcotic agent; Z88.0 Allergy status to penicillin; Z88.8 Allergy status to other drugs, medicaments and biological substances; Z79.02 Long term (current) use of antithrombotics/antiplatelets; Z79.84 Long term (current) use of oral hypoglycemic drugs; Z79.899 Other long term (current) drug therapy; Z70.1 Counseling related to patient's sexual behavior and orientation; Z86.73 Personal history of transient ischemic attack (TIA), and cerebral infarction without residual deficits; Z87.891 Personal history of nicotine dependence
CPT/HCPCS: 36415; 70450; 80053; 83735; 84100; 85025; 85610; 93005; 93010

== ENCOUNTER → 2020-12-29 | Outpatient (CLI) | payer MEDICARE, BC | LOC: LAB SHORT 14:43 → LAB 14:43 | DX: D48.5 Neoplasm of uncertain behavior of skin (principal) | CPT/HCPCS: 88305; 88312 ==

== ENCOUNTER 2021-06-02 23:01 | Inpatient (IN) | payer MEDICARE, BC ==
[~2021-06-02] VITALS: Ht 167.6 cm; Wt 71.8 kg
[~2021-06-02 23:01] MED LIST changes: +CEFD300 PO
[2021-06-02 23:41] LABS: BASOPHILS ABSOLUTE AUTO 0.06 K/mm3 (0.00-0.23); BASOPHILS PERCENT AUTO 1 % (0-2); EOSINOPHILS PERCENT AUTO 3 % (0-6); Hematocrit 44.1 % (33.0-51.0); Hemoglobin 14.6 g/dL (11.5-16.0); IMMATURE GRAN ABSOLUTE AUTO 0.02 K/mm3 (0.00-0.10); IMMATURE GRAN PERCENT AUTO 0 % (0-1); LYMPHOCYTES ABSOLUTE AUTO 1.98 K/mm3 (0.84-5.20); LYMPHOCYTES PERCENT AUTO 25 % (21-46); MONOCYTES PERCENT AUTO 8 % (4-13); Mean Corpuscular HGB 29.9 pg (26.0-34.0); Mean Corpuscular HGB Conc 33.1 g/dL (31.5-36.5); Mean Corpuscular Volume 90 fL (80-100); Mean Platelet Volume 10.9 fL (9.1-12.4); NEUTROPHILS PERCENT AUTO 64 % (41-73); Platelet Count 187 K/mm3 (150-400); RDW Coefficient Variation 14.1 % (11.7-14.2); RDW Standard Deviation 46.9 fL (35.1-46.3); Red Blood Cell Count 4.88 M/mm3 (3.80-5.20); White Blood Cell Count 7.86 K/mm3 (4.00-11.30)
[2021-06-02 23:56] LABS: International Normalized Ratio 1.88; Prothrombin Time Results 18.9 Sec (9.7-11.5)
[2021-06-02 23:59] LABS: Alanine Aminotransfer (ALT/SGP 49 U/L (12-78); Albumin, Blood 3.6 g/dL (3.4-5.0); Albumin/Globulin Ratio 0.9 (0.8-1.8); Alk Phos 89 U/L (50-136); Anion Gap 7 mmol/L (6-16); Aspartate Aminotrans (AST/SGOT 34 U/L (12-37); Bilirubin, Total 0.4 mg/dL (0.1-1.0); Blood Urea Nitrogen 24 mg/dL (8-24); Bun/Creatinine Ratio 31.3 (12.0-20.0); CO2, Blood 23 mmol/L (21-32); Calcium, Blood 9.4 mg/dL (8.5-10.1); Chloride, Blood 106 mmol/L (98-108); Creatinine, Blood 0.77 mg/dL (0.40-1.00); Globulin, Blood 3.9 g/dL (2.2-4.0); Glomerular Filtration Rate >60 (60-); Glucose, Blood 110 mg/dL (70-99); Potassium, Blood 4.2 mmol/L (3.5-5.5); Sodium, Blood 136 mmol/L (136-145); Total Protein, Blood 7.5 g/dL (6.4-8.2)
--- NOTE | 2021-06-03 04:11 | NUR ---
Report received from ED Per telephoned report: patient experienced L hand pins and needles sensation before losing complete control and function of the L hand, unable to even hold her cell phone. EMS reported mild facial droop. 30 min ride to ED. Symtoms had been resolved upon arrival to ED. Patient able to take PO medications. Patient able to use BSC with only SBA. Alert and oriented x 4 although confused with specific timeframes of arrival, but able to provide accurate history. Waiting results of CT and CTA. Possible Echo plan later today or tomorrow. PT 18.9. ASA and tylenol given for headache. Coumadin PO given in ED. Pharmacy to decide heparin admin. To arrive to unite with one PIV.
--- NOTE | 2021-06-03 04:20 | NUR ---
Arrival to unit at 9630
--- NOTE | 2021-06-03 05:55 | NUR ---
Current PIV has no blood return, and is sensitive, although flushes well. Attempt at another PIV failed x2 by administrative underwriter and failed x1 by additional RN. Waiting for US certified RN to attempt PIV insertion for heparin gtt. Patient updated on heparin gtt education.
--- NOTE | 2021-06-03 06:03 | NUR ---
information technology internshipGALI Gonzalez at bedside attempting PIV insertion with US. Pharmacy updated on heparin gtt not started yet.
[2021-06-03 06:31] LABS: BASOPHILS ABSOLUTE AUTO 0.05 K/mm3 (0.00-0.23); BASOPHILS PERCENT AUTO 1 % (0-2); EOSINOPHILS PERCENT AUTO 2 % (0-6); Hematocrit 37.6 % (33.0-51.0); Hemoglobin 12.7 g/dL (11.5-16.0); IMMATURE GRAN ABSOLUTE AUTO 0.03 K/mm3 (0.00-0.10); IMMATURE GRAN PERCENT AUTO 0 % (0-1); LYMPHOCYTES ABSOLUTE AUTO 1.44 K/mm3 (0.84-5.20); LYMPHOCYTES PERCENT AUTO 21 % (21-46); MONOCYTES ABSOLUTE AUTO 0.47 K/mm3 (0.16-1.47); MONOCYTES PERCENT AUTO 7 % (4-13); Mean Corpuscular HGB 30.2 pg (26.0-34.0); Mean Corpuscular HGB Conc 33.8 g/dL (31.5-36.5); Mean Corpuscular Volume 90 fL (80-100); Mean Platelet Volume 10.5 fL (9.1-12.4); NEUTROPHILS ABSOLUTE AUTO 4.67 K/mm3 (1.96-9.15); NEUTROPHILS PERCENT AUTO 69 % (41-73); Platelet Count 163 K/mm3 (150-400); RDW Coefficient Variation 14.1 % (11.7-14.2); White Blood Cell Count 6.76 K/mm3 (4.00-11.30)
[2021-06-03 06:56] LABS: Anion Gap 7 mmol/L (6-16); Blood Urea Nitrogen 20 mg/dL (8-24); Bun/Creatinine Ratio 26.4 (12.0-20.0); CO2, Blood 26 mmol/L (21-32); Calcium, Blood 8.5 mg/dL (8.5-10.1); Chloride, Blood 105 mmol/L (98-108); Creatinine, Blood 0.76 mg/dL (0.40-1.00); Glomerular Filtration Rate >60 (60-); Glucose, Blood 119 mg/dL (70-99); Potassium, Blood 4.1 mmol/L (3.5-5.5); Sodium, Blood 138 mmol/L (136-145)
[2021-06-03 13:36] LABS: Anti-Xa UFH, PHA Monitoring 0.21 IU/mL; International Normalized Ratio 2.3; Prothrombin Time Results 22.9 Sec (9.7-11.5)
--- NOTE | 2021-06-03 18:22 | NUR ---
PT DISCHARGED FROM ICU 14 @ 1815 TO THE CARE OF HER GRANDDAUGHTER. PT INDEPENDENTLY AMBULATED FROM BED TO WHEELCHAIR AND TRANSFERRED TO PRIVATE VEHICLE FROM WHEELCHAIR WITH MINIMAL ASSISTANCE. DISCHARGE INSTRUCTIONS PROVIDED AND REVIEWED. PT AND FAMILY DENY ANY FURTHER QUESTIONS/CONCERNS.
== END 2021-06-03 19:13 | disposition home or self-care (01) | DRG 69 ==
LOC: ER 23:01 → ERHOLD 06-03 02:05 → ICUW 06-03 03:53
PROVIDERS: Family Medicine; Student in an Organized Health Care Education/Training Program; ADMIT Family Medicine
DX: G45.9 Transient cerebral ischemic attack, unspecified (principal); G81.94 Hemiplegia, unspecified affecting left nondominant side; F11.20 Opioid dependence, uncomplicated; I16.1 Hypertensive emergency; R29.810 Facial weakness; E11.9 Type 2 diabetes mellitus without complications; I10 Essential (primary) hypertension; I25.10 Atherosclerotic heart disease of native coronary artery without angina pectoris; G40.909 Epilepsy, unspecified, not intractable, without status epilepticus; I48.91 Unspecified atrial fibrillation; M81.0 Age-related osteoporosis without current pathological fracture; M54.9 Dorsalgia, unspecified; G89.29 Other chronic pain; K21.9 Gastro-esophageal reflux disease without esophagitis; Z28.21 Immunization not carried out because of patient refusal; G47.33 Obstructive sleep apnea (adult) (pediatric); Z88.5 Allergy status to narcotic agent; Z88.0 Allergy status to penicillin; Z88.8 Allergy status to other drugs, medicaments and biological substances; Z79.02 Long term (current) use of antithrombotics/antiplatelets; Z79.01 Long term (current) use of anticoagulants; Z79.84 Long term (current) use of oral hypoglycemic drugs; Z79.899 Other long term (current) drug therapy; Z95.5 Presence of coronary angioplasty implant and graft; Z86.73 Personal history of transient ischemic attack (TIA), and cerebral infarction without residual deficits; Z90.49 Acquired absence of other specified parts of digestive tract; Z90.89 Acquired absence of other organs; Z90.710 Acquired absence of both cervix and uterus; Z87.891 Personal history of nicotine dependence
CPT/HCPCS: 36415; 70450; 70496; 80048; 80053; 82947; 85025; 85520; 85610; 93005; 93010; 93306; 97112; 97161; 97165; 97530; A9270; J1644; Q9967

== ENCOUNTER 2021-06-07 06:40 | Observation (INO) | payer MEDICARE, BC ==
[~2021-06-07] VITALS: Ht 167.6 cm; Wt 78.4 kg
[2021-06-07 07:27] LABS: BASOPHILS ABSOLUTE AUTO 0.05 K/mm3 (0.00-0.23); BASOPHILS PERCENT AUTO 1 % (0-2); EOSINOPHILS ABSOLUTE AUTO 0.14 K/mm3 (0.00-0.68); EOSINOPHILS PERCENT AUTO 3 % (0-6); Hematocrit 38.8 % (33.0-51.0); Hemoglobin 13.2 g/dL (11.5-16.0); IMMATURE GRAN ABSOLUTE AUTO 0.02 K/mm3 (0.00-0.10); IMMATURE GRAN PERCENT AUTO 0 % (0-1); LYMPHOCYTES ABSOLUTE AUTO 1.51 K/mm3 (0.84-5.20); LYMPHOCYTES PERCENT AUTO 28 % (21-46); MONOCYTES ABSOLUTE AUTO 0.51 K/mm3 (0.16-1.47); MONOCYTES PERCENT AUTO 9 % (4-13); Mean Corpuscular HGB 30.4 pg (26.0-34.0); Mean Corpuscular Volume 89 fL (80-100); Mean Platelet Volume 10.9 fL (9.1-12.4); NEUTROPHILS ABSOLUTE AUTO 3.21 K/mm3 (1.96-9.15); NEUTROPHILS PERCENT AUTO 59 % (41-73); Platelet Count 165 K/mm3 (150-400); RDW Standard Deviation 46.2 fL (35.1-46.3); Red Blood Cell Count 4.34 M/mm3 (3.80-5.20); White Blood Cell Count 5.44 K/mm3 (4.00-11.30)
[2021-06-07 07:34] LABS: International Normalized Ratio 2.2; Prothrombin Time Results 21.9 Sec (9.7-11.5)
[2021-06-07 07:37] LABS: Alanine Aminotransfer (ALT/SGP 38 U/L (12-78); Albumin, Blood 3.3 g/dL (3.4-5.0); Albumin/Globulin Ratio 0.9 (0.8-1.8); Alk Phos 77 U/L (50-136); Anion Gap 9 mmol/L (6-16); Aspartate Aminotrans (AST/SGOT 21 U/L (12-37); Bilirubin, Total 0.6 mg/dL (0.1-1.0); Blood Urea Nitrogen 16 mg/dL (8-24); Bun/Creatinine Ratio 20.4 (12.0-20.0); CO2, Blood 28 mmol/L (21-32); Calcium, Blood 9.9 mg/dL (8.5-10.1); Chloride, Blood 103 mmol/L (98-108); Creatinine, Blood 0.78 mg/dL (0.40-1.00); Globulin, Blood 3.5 g/dL (2.2-4.0); Glomerular Filtration Rate >60 (60-); Glucose, Blood 133 mg/dL (70-99); Potassium, Blood 4.2 mmol/L (3.5-5.5); Sodium, Blood 140 mmol/L (136-145); Total Protein, Blood 6.8 g/dL (6.4-8.2); Troponin I <0.015 ng/mL (0.000-0.040)
[2021-06-07 07:53] LABS: Source, Urine Clean Catch
[2021-06-07 08:08] LABS: Appearance, Urine Clear (Clear); Bilirubin, Urine Neg (Neg); Blood, Urine Neg (Neg); Color, Urine Yellow (P-Yellow); Glucose Qualitative, Urine Neg (Neg); Ketones, Urine Neg (Neg); Leukocyte Esterase, Urine 1+ (Neg); Nitrite, Urine Pos (Neg); Protein, Urine Neg (Neg); Urobilinogen, Urine NORM (Normal)
[2021-06-07 08:41] LABS: Red Blood Cells, Urine 0-2 /hpf (0-2)
[2021-06-07 08:42] LABS: Bacteria Many /hpf; Squamous Epithelial Cells Rare /hpf (Few)
[2021-06-07] MEDS ORDERED: ASPI81CH PO (11:47)
[2021-06-07] MEDS ORDERED: OXYC5 PO (11:47)
--- NOTE | 2021-06-07 13:34 | NUR ---
Report received from Gary Jordan RN. Anticipate pt arrival to PCU 5 shortly.
--- NOTE | 2021-06-07 16:58 | NUR ---
Noted blood pressure high, given hydralazine for systolic of 170 mm HG.
--- NOTE | 2021-06-08 03:45 | NUR ---
SHIFT SUMMARY NO ACUTE CHANGES THIS SHIFT. PT A&OX4. SP02>92% ON RA. TELEMETRY READS NSR, HR 60'S. PT DENIED PAIN THIS SHIFT. REPOSITIONED SELF IN BED. PT STATES SHE HAS BEEN TAKEN SBA TO BATHROOM TO VOID. PT SLEPT MOST OF NIGHT. CALL LIGHT IN REACH.
[2021-06-08 04:54] LABS: International Normalized Ratio 1.64; Prothrombin Time Results 16.7 Sec (9.7-11.5)
[2021-06-08 05:29] LABS: Anion Gap 12 mmol/L (6-16); Blood Urea Nitrogen 20 mg/dL (8-24); Bun/Creatinine Ratio 23.1 (12.0-20.0); CO2, Blood 23 mmol/L (21-32); Calcium, Blood 9.2 mg/dL (8.5-10.1); Chloride, Blood 102 mmol/L (98-108); Creatinine, Blood 0.87 mg/dL (0.40-1.00); Glomerular Filtration Rate >60 (60-); Glucose, Blood 113 mg/dL (70-99); Potassium, Blood 3.9 mmol/L (3.5-5.5); Sodium, Blood 137 mmol/L (136-145)
--- NOTE | 2021-06-08 07:45 | NUR ---
INITIAL ASSESSMENT: Patient is awake, alert, and oriented. She reports chronic numbness and tingling to her BLE, she states this is due to neuropathy. She is sitting up in bed. She reports 5/10 lower back pain, medicated with tylenol and oxicodone. HRR, SB at 65. Blood pressure stable this am. BT+. PPP. VSS. AM meds given whole with a sip of water, patient denies other needs at this time. Call light in reach. Will continue to monitor.
[2021-06-08] MEDS ORDERED: HYDCHL25 PO (11:05)
[2021-06-08] MEDS ORDERED: HYDR10 PO (11:08)
[2021-06-08] MEDS ORDERED: METF500 PO (11:08)
--- NOTE | 2021-06-08 13:00 | NUR ---
Discharge: Patient and daughter verbalize understanding of discharge instructions. IV DC'd cath intact. Patient discharged hoem with daughter via WC.
== END 2021-06-08 13:05 | disposition home or self-care (01) ==
LOC: ER 06:40 → PCU 06:41 → ERHOLD 06:41 → PCU 13:55
PROVIDERS: Emergency Medicine; Pharmacist; ADMIT Internal Medicine
DX: I16.0 Hypertensive urgency (principal); I10 Essential (primary) hypertension; G45.9 Transient cerebral ischemic attack, unspecified; E11.9 Type 2 diabetes mellitus without complications; I25.10 Atherosclerotic heart disease of native coronary artery without angina pectoris; I48.91 Unspecified atrial fibrillation; M81.0 Age-related osteoporosis without current pathological fracture; G89.29 Other chronic pain; M54.9 Dorsalgia, unspecified; G40.509 Epileptic seizures related to external causes, not intractable, without status epilepticus; G47.33 Obstructive sleep apnea (adult) (pediatric); K21.9 Gastro-esophageal reflux disease without esophagitis; Z86.73 Personal history of transient ischemic attack (TIA), and cerebral infarction without residual deficits; Z79.01 Long term (current) use of anticoagulants; Z79.84 Long term (current) use of oral hypoglycemic drugs; Z95.5 Presence of coronary angioplasty implant and graft; Z79.02 Long term (current) use of antithrombotics/antiplatelets; Z79.891 Long term (current) use of opiate analgesic; Z87.19 Personal history of other diseases of the digestive system; Z87.891 Personal history of nicotine dependence; Z88.0 Allergy status to penicillin; Z88.5 Allergy status to narcotic agent; Z88.8 Allergy status to other drugs, medicaments and biological substances
CPT/HCPCS: 36415; 70450; 80048; 80053; 81001; 84484; 85025; 85610; 85730; 87077; 87086; 87186; 93005; 93010; 96374; 96376; 99285-25; A9270; G0378; J0360

== ENCOUNTER 2021-06-08 15:49 | Inpatient (IN) | payer MEDICARE, BC ==
[~2021-06-08] VITALS: Ht 165.1 cm; Wt 81.7 kg
[2021-06-08 18:33] LABS: U Amphetamine Screen Not Detected; U Barbituate Screen Not Detected; U Benzodiazapine Screen Not Detected; U Buprenorphine Screen Not Detected; U Cannabinoids Screen Not Detected; U Cocaine Screen Not Detected; U Methadone Screen Not Detected; U Methamphetamine Screen Not Detected; U Opiates Screen Not Detected; U Oxycodone Screen DETECTED; U Phencyclidine Screen Not Detected; U Propoxyphene Screen Not Detected
[2021-06-08 18:47] LABS: BASOPHILS ABSOLUTE AUTO 0.06 K/mm3 (0.00-0.23); BASOPHILS PERCENT AUTO 1 % (0-2); EOSINOPHILS ABSOLUTE AUTO 0.16 K/mm3 (0.00-0.68); EOSINOPHILS PERCENT AUTO 2 % (0-6); Hematocrit 39.8 % (33.0-51.0); Hemoglobin 13.6 g/dL (11.5-16.0); IMMATURE GRAN ABSOLUTE AUTO 0.02 K/mm3 (0.00-0.10); IMMATURE GRAN PERCENT AUTO 0 % (0-1); LYMPHOCYTES PERCENT AUTO 24 % (21-46); MONOCYTES ABSOLUTE AUTO 0.59 K/mm3 (0.16-1.47); MONOCYTES PERCENT AUTO 8 % (4-13); Mean Corpuscular HGB 30.2 pg (26.0-34.0); Mean Corpuscular HGB Conc 34.2 g/dL (31.5-36.5); Mean Corpuscular Volume 88 fL (80-100); Mean Platelet Volume 10.8 fL (9.1-12.4); NEUTROPHILS ABSOLUTE AUTO 4.79 K/mm3 (1.96-9.15); NEUTROPHILS PERCENT AUTO 64 % (41-73); Platelet Count 168 K/mm3 (150-400); RDW Coefficient Variation 14.2 % (11.7-14.2); RDW Standard Deviation 46.2 fL (35.1-46.3); White Blood Cell Count 7.42 K/mm3 (4.00-11.30)
[2021-06-08 19:31] LABS: Albumin, Blood 3.4 g/dL (3.4-5.0); Bilirubin, Total 0.7 mg/dL (0.1-1.0); Bun/Creatinine Ratio 27.3 (12.0-20.0); Calcium, Blood 9.3 mg/dL (8.5-10.1); Creatinine, Blood 0.92 mg/dL (0.40-1.00); Globulin, Blood 3.4 g/dL (2.2-4.0); Magnesium, Blood 1.6 mg/dL (1.6-2.4); Total Protein, Blood 6.8 g/dL (6.4-8.2)
[2021-06-08 19:33] LABS: Thyroid Stimulating Hormone 3.39 uIU/mL (0.360-4.800)
[2021-06-09 05:34] LABS: International Normalized Ratio 1.58; Prothrombin Time Results 16.1 Sec (9.7-11.5)
--- NOTE | 2021-06-09 07:36 | NUR ---
SHIFT SUMMARY PT ALERT AND ORIENTED, PLEASANT AND COOPERATIVE TO CARE. HR SR 60'S. ON RA MAINTAINING SATS OVER 93%. BP TRENDING DOWN FROM 162/64 TO 107/49 THIS MORNING. C/O CHRONIC BACK PAIN MANAGED PER EMAR. ON 24 HR URINE COLLECTION TEST. IN BED SLEEPING WITH CALL ALARM AT SIDE
--- NOTE | 2021-06-09 18:40 | NUR ---
SHIFT SUMMARY PT A/O X4 AND COOPERATIVE OF CARE. VSS T/O SHIFT WITH 02 SATS >97% ON RA. PT WAS UP TO BEDSIDE COMMODE, TOLERATED WELL. 24 HOUR URINE COLLECTION CONTINUING TO BE COLLECTED, URINE ON ICE IN BATHROOM. PT EXPRESSED CONCERNS OF MEDICATINOS AND WHEN SHE USSUALLY TAKES HER MEDS. NO C/O OF CHEST PAIN/PRESSURE T/O SHIFT. NO REPORT OF SOB T/O SHIFT.
[2021-06-10 03:56] LABS: International Normalized Ratio 1.94; Prothrombin Time Results 19.5 Sec (9.7-11.5)
[2021-06-10 03:58] LABS: Anion Gap 8 mmol/L (6-16); Blood Urea Nitrogen 28 mg/dL (8-24); Bun/Creatinine Ratio 34.4 (12.0-20.0); CO2, Blood 27 mmol/L (21-32); Calcium, Blood 8.8 mg/dL (8.5-10.1); Chloride, Blood 103 mmol/L (98-108); Creatinine, Blood 0.81 mg/dL (0.40-1.00); Glomerular Filtration Rate >60 (60-); Glucose, Blood 128 mg/dL (70-99); Potassium, Blood 3.6 mmol/L (3.5-5.5); Sodium, Blood 138 mmol/L (136-145)
--- NOTE | 2021-06-10 06:06 | NUR ---
TOOK OVER CARE AT APPROX 2130 FROM [facility] TALBERT. PT SLEEPING. VSS THROUGHOUT SHIFT. NO C/O. MRI SCHEDULED FOR THIS AM. TELE: SR W/ BBB + PAC. NEED TO COLLECT URINE SAMPLE AND SUBSEQUENTLY A 24 URINE COLLECTION. PREVIOUS URINE COLLECTION UNABLE TO BE USED D/T MISCOMMUNICATION FROM CIVIL RIGHTS ATTORNEY TO ACCOUNT ASSISTANT ON NOC SHIFT 06/08. WILL PASS ON TO DAY SHIFT. NO ISSUES OVERNIGHT.
--- NOTE | 2021-06-10 17:22 | NUR ---
TRANSFER UPDATE REPORT GIVEN TO MEDICAL FLOOR NURSE AT 1519. PT LEFT UNIT VIA WHEELCHAIR AT 1530. PT BELONGINGS IN BAGS AND TRANSFERED WITH PT. PT OCCOMPANIED BY RN AND FAMILY MEMBER FOR TRANSFER. 24 HOUR URINE COLLECTION TRANSFERED TO MEDICAL ROOM BY U TECH AT TIME OF TRANSFER.
--- NOTE | 2021-06-10 18:04 | NUR ---
SHIFT SUMMARY PT TRANSFERRED TO UNIT FROM PCU THIS SHIFT. PT AAOX4, ABLE TO MAKE NEEDS KNOWN, PLEASANT AND COOPERATIVE TO CARE. NO C/O PAIN OR ANY DISCOMFORT. DENIES CP, SOB, OR N/V/D. NO ACUTE CHANGES NOTED TO PT THIS SHIFT. 24HR URINE COLLECTION ONGOING. BED AT LOWEST POSITION. CALL LIGHT WITHIN REACH.
--- NOTE | 2021-06-11 04:23 | NUR ---
FORMATION FRACTURING OPERATOR SUMMARY ADMITTED FOR FLUCTUANT BP WITH RECURRENT HYPERTENSIVE URGENCY. PT IS A FULL CODE. PLAN FOR DISCHARGE TODAY. PT HAS BEEN AMBULATORY IN THE ROOM A STANDBY ASSIST. 24 HOUR URINE COLLECTION ENDS AT 1230 TODAY. PT MEDICATED FOR PAIN X1. NO OTHER CONCERNS THIS SHIFT.
[2021-06-11 05:20] LABS: International Normalized Ratio 2.39; Prothrombin Time Results 23.7 Sec (9.7-11.5)
[2021-06-11 16:11] LABS: NORMETANEPHRINE, PL 94.5 pg/mL (0.0-297.2)
--- NOTE | 2021-06-11 16:26 | NUR ---
PT IS A/OX4, PLEASANT AND COOPERATIVE, UP IND IN HER ROOM. THE PT APPEARS TO BE BREATHING EASILY ON RA AT THIS TIME. THIS AM THE PT REPORTED SOME NUMBNESS AND TINGLING IN HER HANDS AND FACE THAT RESOLVED WITHIN A SHORT TIME. THE PTS VS WERE TAKEN THE PTS BP WAS ELEVATED AM MEDS GIVEN AND THE PTS BP STABLIZED AND NUMBNESS RESOLVED PER THE PT. THE PT WAS MEDICATED FOR LOW BACK PAIN X1 SO FAR THIS SHIFT. CALL LIGHT IN REACH, WILL CONTINUE TO MONITOR AND ASSESS FOR CHANGES
--- NOTE | 2021-06-12 04:45 | NUR ---
SHIFT SUMMARY NO ACUTE CHANGES THROUGHOUT SHIFT. PT AMBULATED SELF TO RESTROOM. PT TALKED ON PHONE TO HER DAUGHTER MUCH OF THE EVENING. PT COOPERATIVE AND PLEASANT. BP'S ARE STILL ELEVATED, BUT ARE TRENDING DOWN TOWARDS NORMAL. CALL LIGHT WITHIN REACH. WILL CONTINUE TO MONITOR.
[2021-06-12 05:31] LABS: International Normalized Ratio 2.08; Prothrombin Time Results 20.8 Sec (9.7-11.5)
[2021-06-12 09:17] LABS: Anion Gap 10 mmol/L (6-16); Blood Urea Nitrogen 20 mg/dL (8-24); CO2, Blood 25 mmol/L (21-32); Calcium, Blood 9.3 mg/dL (8.5-10.1); Chloride, Blood 104 mmol/L (98-108); Creatinine, Blood 0.74 mg/dL (0.40-1.00); Glomerular Filtration Rate >60 (60-); Glucose, Blood 138 mg/dL (70-99); Sodium, Blood 139 mmol/L (136-145)
--- NOTE | 2021-06-12 11:09 | NUR ---
THIS AM 12/5 THE PT REPORTED HAVING NUMBNESS AND TINGLING FROM HER HANDS UP TO HER NECK AND FACE MORE INTENSE THAN THE EPISODE SHE HAD YESTERDAY, THE PT ALSO REPORTED HAVING TROUBLE GETTING WORDS OUT. THE PT WAS GIVEN HER AM CARDIAC MEDICATIONS. A CALL WAS MADE TO DR. FARRIS. DR. FARRIS ASSESSED THE PT AT THE BEDSIDE. A STAT DOSE OF LASIX WAS GIVEN AND MEDS ADJUSTED. VS WERE CHECKED REPEATIDLY AFTER BP DOWN TO 139/76 HR 69 AT THIS TIME. THE PT REPORTS THAT THE TINGLING IS STILL THERE BUT NOT BAD. WILL CONTINNUE TO MONITOR AND ASSESS FOR FURTHER CHANGES. CALL LIGHT IN REACH
--- NOTE | 2021-06-12 16:40 | NUR ---
PT IS A/OX4, PLEASANT ANC COOPERATIVE, THE PT IS UP WITH MINIMAL ASSIST. THIS AM THE PT BECAME VERY ANXIOUS REPORTING NUMBNESS AND TINGLING IN HER ARMS PROGRESSING UP TO HER FACE AND TO HER NECK, VS REVEALED ELEVATED BP 199/80, HR 89. PTS AM BP MEDS WERE GIVEN AND DR. FARRIS WAS CALLED. DR. FARRIS CAME TO THE BEDSIDE AND ASSESSED THE PT. THE PTS BP MEDS WERE ADJUSTED AND 20 MG IV LASIX WAS GIVEN OVER AN HOUR THE PTS BP STABALIZED AND THE PTS SYMPTOMS RESOLVED SO FAR THIS SHIFT. THE PT WAS MEDICATED X1 FOR CHRONIC BACK PAIN THIS AM. THE PT WAS MEDICATED FOR ACID REFLUX X 1 TODAY. CALL LIGHT IN REACH WILL CONTINUE TO MONITOR AND ASSESS FOR CHANGES
--- NOTE | 2021-06-13 02:10 | NUR ---
DAUGHTERS CALLED, VOICED CONCERNS THAT THEIR MOTHER NEEDED "MONITORING" IN CASE SHE HAD "AN EPISODE" WHICH COULD CAUSE HER "CONFUSION, LIKE A TIA BUT NOT A TIA...". NURSE SUGGESTED A PULSE OX TO MONITOR HR AND O2 SATS. THEY AGREED. NURSE CONNECTED FINGER MONITOR. PT HR 58, SATS IN THE 90'S. NO NOTED S/S ACUTE DISTRESS. RESTING QUIETLY. CALL LIGHT IN REACH
--- NOTE | 2021-06-13 03:28 | NUR ---
SHIFT SUMMARY NO ACUTE CHANGES THIS SHIFT. BP CONTINUES TO BE ELEVATED, BUT THERE HASN'T BEEN A NEED FOR THE PRN HYDRALAZINE AT THIS POINT. PT'S OTHER VS HAVE BEEN STABLE. GALI VALLES SPOKE WITH PT'S DAUGHTERS AT 0200. THEY CALLED TO VOICE CONCERNS THAT PT WAS NOT BEING WATCHED CLOSE ENOUGH. PT HAS CALL LIGHT WITHIN REACH AND WILL CONTINUE TO BE MONITORED. PT CONTINUES TO SLEEP.
[2021-06-13 04:57] LABS: International Normalized Ratio 1.54; Prothrombin Time Results 15.7 Sec (9.7-11.5)
[2021-06-13 17:08] LABS: METANEPHRINE, UR 47 ug/L (Undefined)
--- NOTE | 2021-06-13 18:41 | NUR ---
PATIENT IS ALERT AND ORIENTED AND COOPERATIVE WITH CARE. HER BLOOD PRESSURE HAS BEEN STABLE THIS SHIFT. SHE IS INDEPENDENT IN THE ROOM. SHE SHOWERED TODAY. C/O LOW BACK PAIN, MEDICATED PER EMAR. CAROTID DUPLEX WAS COMPLETED THIS AFTERNOON. WILL CONTINUE TO MONITOR
--- NOTE | 2021-06-13 19:45 | NUR ---
DR AGUILAR IN TO SEE PT
--- NOTE | 2021-06-14 03:54 | NUR ---
SHIFT SUMMARY NO ACUTE CHANGES. PT A&O X 4. DR AGUILAR CAME TO SEE HER LAST NIGHT. NO INSULIN COVERAGE WAS NEEDED TONIGHT. BP CONTINUES TO TREND DOWN. PT CONTINUES TO HAVE BACK PAIN. MEDICATED PER EMAR. INDEPENDENT IN ROOM. CALL LIGHT WITHIN REACH, PT RESTING WITH EYES CLOSED. NO APPARENT DISTRESS. WILL CONTINUE TO MONITOR.
[2021-06-14 05:03] LABS: International Normalized Ratio 1.37; Prothrombin Time Results 14.1 Sec (9.7-11.5)
[2021-06-14 05:48] LABS: CHOL/HDL RATIO 2.8; Cholesterol 138 mg/dL (50-200); HDL Cholesterol 49 mg/dL (>39); LDL/HDL RATIO 1.4; Low Density Lipoprotein Chol 66 mg/dL (0-110); Triglycerides 114 mg/dL (30-160); Very Low Density Lipoprot Chol 22 mg/dL (6-32)
[2021-06-14 10:12] LABS: DOPAMINE, URINE 39 ug/L (Undefined)
--- NOTE | 2021-06-14 12:52 | NUR ---
PATIENT HAS HAD TINGLING AND NUMBNESS IN EXTREMITIES. BLOOD PRESSURE TAKEN, SHOWN TO BE ELEVATED. BLOOD PRESSURE MEDICATION GIVEN. DR GERONIMO NOTIFIED AND WAS TOLD TO MONITOR PATIENT AND NOTIFY IF CHANGES WORSEN. BLOOD PRESSURE HAS SINCE DECREASED TO 150S/50
--- NOTE | 2021-06-14 16:36 | NUR ---
SHIFT SUMMARY PATIENT IS ALERT AND ORIENTED X4. PATIENT IS PLEASENT AND COOPERATIVE WITH CARE. PATIENT HAS HAD FLUCTUATING BLOOD PRESSURES THIS SHIFT. IN THE BEGINNING OF SHIFT PATIENT HAD HIGHER BP AND SYMPTOMS INCLUDING "NUMBNESS AND TINGLING" MEDICATED PER EMAR. BP HAS BEEN STABLE SINCE MEDICATIONS. PATIENT MEDICATED FOR BACK PAIN, WHICH PATIENT STATES IS "CHRONIC PAIN". NO OTHER COMPLAINTS OF NAUSEA, VOMITTING, SOB. NO OTHER ACUTE EVENTS THIS SHIFT. CALL LIGHT IN PLACE. WILL MONITOR UNTIL SHIFT CHANGE.
--- NOTE | 2021-06-15 04:56 | NUR ---
A/OX4. PT INDEPENDENT IN ROOM TO BR. PIV RT FA SL. BP TRENDING DOWN DURING NOC SHIFT. PT WEARS CPAP AT HOME AND EDUCATED HERE BY RT, BUT SHE REFUSED.
[2021-06-15 05:17] LABS: International Normalized Ratio 1.44; Prothrombin Time Results 14.8 Sec (9.7-11.5)
[2021-06-15 06:31] LABS: Albumin, Blood 2.8 g/dL (3.4-5.0); Anion Gap 8 mmol/L (6-16); Blood Urea Nitrogen 20 mg/dL (8-24); Bun/Creatinine Ratio 25.4 (12.0-20.0); CO2, Blood 27 mmol/L (21-32); Calcium, Blood 8.9 mg/dL (8.5-10.1); Chloride, Blood 101 mmol/L (98-108); Creatinine, Blood 0.79 mg/dL (0.40-1.00); Glomerular Filtration Rate >60 (60-); Glucose, Blood 120 mg/dL (70-99); Phosphorus, Blood 3.3 mg/dL (2.5-4.9); Potassium, Blood 3.9 mmol/L (3.5-5.5); Sodium, Blood 136 mmol/L (136-145)
--- NOTE | 2021-06-15 16:48 | NUR ---
SHIFT SUMMARY PATIENT IS ALERT AND ORIENTED X4. PATIENT HAS BEEN INDEPENDENT IN ROOM TO BATHROOM WITHOUT INCIDENT. PATIENT HAS HAD LOWER BP THIS SHIFT AND HAS TRENDED SLIGHTLY UP. PATIENT HAD ONE INCIDENT OF LIPS GOING NUMB AND TINGLING BUT BP WAS NOT ABNORMALLY HIGH. MONITORED PATIENT AND HAD NO REOCCURING INCIDENTS AFTER. PATIENT HAS HAD NO COMPLAINTS OF NAUSEA, VOMITTING, SOB. PATIENT HAS BEEN MEDICATED ONCE FOR CHRONIC BACK PAIN PER EMAR. NO OTHER ACUTE EVENTS. WILL MONITOR UNTIL BAR GAUGER AND LUBRICATOR TENDER.
--- NOTE | 2021-06-16 05:17 | NUR ---
PT IS A/OX4. HER BPs HAVE BEEN MUCH BETTER AND SHE HAS BEEN RESTING COMFORTABLY. WE'RE WAITING ON HER INR TO BE THERAPEUTIC AND SHE COULD POSSIBLY DC BACK HOME TODAY OR WITHIN THE NEXT FEW. SHE HAS BEEN INDEPENDENT IN THE ROOM TO THE BATHROOM.
[2021-06-16 05:32] LABS: International Normalized Ratio 1.5; Prothrombin Time Results 15.3 Sec (9.7-11.5)
--- NOTE | 2021-06-16 18:07 | NUR ---
SHIFT SUMMARY; KULWINDER HAD EPISODE OF SEVERE ANXIETY THIS AFTERNOON. CALL TO . PROBLEM SOLVING WITH MD THOUGHT WAS MAY BE WITHDRAWL SYMPTOMS SINCE BRAYDEN NORMALLY TAKES OXYCODONE TID AND HAS NOT HAD DOSE SINCE LAST NOC AT 1999. PATIENT MUCH CALMER THIS EVENING. PATIENT IS AO X 4. DAUGHTER IN ROOM. STILL WAITING FOR INR TO BECOME THERAPEUDIC. PLAN IS FOR PATIENT TO RETURN HOME WITH HER DAUGHTER WHO IS PRIMARY SCRAPER MEAT FOR HER MOM ALIN FELICIANO RN
--- NOTE | 2021-06-17 05:12 | NUR ---
SHIFT SUMMARY NO ACUTE CHANGES TO REPORT THIS SHIFT, PT BP HAS REMAINED STABLE. PT MEDICATED FOR PAIN X1 THIS SHIFT WITH EFFECT. NO ANXIETT THIS SHIFT, SHE HAS RESTED COMFORTABLY T/O THE NIGHT. PLAN IS FOR DISCHARGE TODAY PENDING WITH LABS ARE IN AN APPROPRIATE RANGE.
[2021-06-17 05:48] LABS: International Normalized Ratio 1.31; Prothrombin Time Results 13.5 Sec (9.7-11.5)
[2021-06-17 14:46] LABS: International Normalized Ratio 1.26
--- NOTE | 2021-06-17 17:58 | NUR ---
SHIFT SUMMARY; PATIENT HAD UNEVENTFUL DAY. SHE WAS HOPEFUL TO GO HOME TODAY HOWEVER HER INR IS STILL SUBTHERAPUDI PAITENT IS INDEPENDANT IN THE ROOM. SHE CALLS APPROPIRATELY AND IS ABLE TO MAKE HER NEEDS KNOWN. ALIN FELICIANO RN
--- NOTE | 2021-06-18 04:44 | NUR ---
Pt admitted on 06/09/21 for fluctuating blood pressures. Full code. Plan is to acheive a therapeutic INR so that she may discharge home. Neuro consult is Dr. Jack. Pacemaker in place. She is on warfarin. No new concerns this shift.
[2021-06-18 05:08] LABS: International Normalized Ratio 1.48; Prothrombin Time Results 15.1 Sec (9.7-11.5)
[2021-06-18 13:36] LABS: International Normalized Ratio 1.7; Prothrombin Time Results 17.2 Sec (9.7-11.5)
--- NOTE | 2021-06-18 16:25 | NUR ---
PATIENT DISCHARGED TO HOME WITH FAMILY. IV SALINE LOCK REMOVED WITHOUT INCIDENT. VERBALIZED UNDERSTANDING OF D/C INSTRUCTIONS, WILL GET INR DRAWN ON WEDNESDAY 06/20. OFF UNIT AT 1620 VIA W/C WITH LEGAL SUMMER INTERN. NO BELONGINGS LEFT BEHIND IN ROOM.
== END 2021-06-18 16:20 | disposition home or self-care (01) | DRG 69 ==
LOC: ER 15:49 → PCU 15:50 → MEDS 06-09 13:41 → PCU 06-09 13:42 → MEDS 06-10 15:31
PROVIDERS: Emergency Medicine; Internal Medicine; Pharmacist; ADMIT Internal Medicine
DX: G45.9 Transient cerebral ischemic attack, unspecified (principal); G40.509 Epileptic seizures related to external causes, not intractable, without status epilepticus; F11.20 Opioid dependence, uncomplicated; I16.0 Hypertensive urgency; G43.109 Migraine with aura, not intractable, without status migrainosus; E11.9 Type 2 diabetes mellitus without complications; I25.10 Atherosclerotic heart disease of native coronary artery without angina pectoris; M81.0 Age-related osteoporosis without current pathological fracture; G89.29 Other chronic pain; Z60.2 Problems related to living alone; G47.33 Obstructive sleep apnea (adult) (pediatric); M54.9 Dorsalgia, unspecified; K21.9 Gastro-esophageal reflux disease without esophagitis; K72.90 Hepatic failure, unspecified without coma; E66.9 Obesity, unspecified; I48.0 Paroxysmal atrial fibrillation; I49.5 Sick sinus syndrome; M19.90 Unspecified osteoarthritis, unspecified site; Z95.5 Presence of coronary angioplasty implant and graft; Z88.5 Allergy status to narcotic agent; Z88.0 Allergy status to penicillin; Z88.1 Allergy status to other antibiotic agents; Z90.49 Acquired absence of other specified parts of digestive tract; Z98.890 Other specified postprocedural states; Z90.89 Acquired absence of other organs; Z87.891 Personal history of nicotine dependence; Z79.01 Long term (current) use of anticoagulants; Z79.82 Long term (current) use of aspirin; Z79.84 Long term (current) use of oral hypoglycemic drugs; Z79.02 Long term (current) use of antithrombotics/antiplatelets; Z91.19 Patient's noncompliance with other medical treatment and regimen
CPT/HCPCS: 36415; 74175; 80048; 80053; 80061; 80069; 81050; 82384; 82947; 83036; 83735; 83835; 84443; 85025; 85610; 86316; 93005; 93010; 93880; 93975; 96374; 97110; 97116; 97161; 97165; 97530; 97535; 99285-25; A9270; G0378; J0360; J1815; J1940; Q9967

== ENCOUNTER → 2021-07-18 | Outpatient (CLI) | payer MEDICARE, BC ==
[~2021-07-18] MED LIST changes: +ATOR80 PO; +Cymbalta20 MG PO; +FAMO40 PO; +GLUCOPHAGE1000 M1 PO; +KEPPRA XR750 MG PO
== END ==
LOC: LAB SHORT 15:07
DX: D48.5 Neoplasm of uncertain behavior of skin (principal)
CPT/HCPCS: 88305

== ENCOUNTER 2022-01-18 08:52 | Inpatient (IN) | payer MEDICARE, BC ==
[~2022-01-18] VITALS: Ht 170.2 cm; Wt 74.8 kg
[~2022-01-18 08:52] MED LIST changes: +SULTRIDS PO
[2022-01-18 09:30] LABS: Source, Urine Clean Catch
[2022-01-18 09:35] LABS: Appearance, Urine Clear (Clear); Bilirubin, Urine Neg (Neg); Blood, Urine 1+ (Neg); Color, Urine Yellow (P-Yellow); Glucose Qualitative, Urine Neg (Neg); Ketones, Urine Neg (Neg); Leukocyte Esterase, Urine 2+ (Neg); Nitrite, Urine Pos (Neg); Protein, Urine Neg (Neg); Urobilinogen, Urine NORM (Normal)
[2022-01-18 09:42] LABS: Bacteria Many /hpf; Red Blood Cells, Urine 0-2 /hpf (0-2); Squamous Epithelial Cells Few /hpf (Few)
[2022-01-18 10:13] LABS: BASOPHILS ABSOLUTE AUTO 0.04 K/mm3 (0.00-0.23); BASOPHILS PERCENT AUTO 0 % (0-2); EOSINOPHILS ABSOLUTE AUTO 0.07 K/mm3 (0.00-0.68); EOSINOPHILS PERCENT AUTO 1 % (0-6); Hematocrit 39.2 % (33.0-51.0); Hemoglobin 13.7 g/dL (11.5-16.0); IMMATURE GRAN ABSOLUTE AUTO 0.09 K/mm3 (0.00-0.10); IMMATURE GRAN PERCENT AUTO 1 % (0-1); LYMPHOCYTES ABSOLUTE AUTO 1.49 K/mm3 (0.84-5.20); LYMPHOCYTES PERCENT AUTO 15 % (21-46); MONOCYTES PERCENT AUTO 3 % (4-13); Mean Corpuscular HGB Conc 34.9 g/dL (31.5-36.5); Mean Corpuscular Volume 86 fL (80-100); Mean Platelet Volume 10.6 fL (9.1-12.4); NEUTROPHILS ABSOLUTE AUTO 7.95 K/mm3 (1.96-9.15); NEUTROPHILS PERCENT AUTO 80 % (41-73); Platelet Count 224 K/mm3 (150-400); RDW Coefficient Variation 13.2 % (11.7-14.2); RDW Standard Deviation 41.1 fL (35.1-46.3); Red Blood Cell Count 4.56 M/mm3 (3.80-5.20); White Blood Cell Count 9.94 K/mm3 (4.00-11.30)
[2022-01-18 10:38] LABS: Albumin, Blood 3.4 g/dL (3.4-5.0); Albumin/Globulin Ratio 1.1 (0.8-1.8); Bilirubin, Total 0.5 mg/dL (0.1-1.0); Bun/Creatinine Ratio 24.8 (12.0-20.0); Calcium, Blood 9.1 mg/dL (8.5-10.1); Creatinine, Blood 0.73 mg/dL (0.40-1.00); Globulin, Blood 3.2 g/dL (2.2-4.0); Total Protein, Blood 6.6 g/dL (6.4-8.2)
[2022-01-18 14:42] LABS: International Normalized Ratio 3.97; Prothrombin Time Results 38.1 Sec (9.7-11.5)
--- NOTE | 2022-01-18 17:42 | NUR ---
SPOKE WITH DAUGHTER DISCUSSED MENTATION. DAUGHTER TO CHECK IN A FEW HOURS FROM NOW. WILL CONTINUE TO MONITOR.
--- NOTE | 2022-01-18 17:43 | NUR ---
SHIFT SUMMARY- ASSUMED CARE OF PT FROM ED TRANSFER. PT CONFUSED AND ADGITATED. ABLE TO MEDICATE PT FOR FEVER PO PER EMAR. APPLIED ICE TO REDUCE FEVER, REMOVED ALL BLANKETS BROUGHT TO FLOOR WITH. PT RESTING NOW WITH BED ALARM, SIDE RAILS, AND CALL LIGHT WITHION REACH. WILL CONTINUE TO MONITOR.
[2022-01-19] MEDS ORDERED: [UNRECOGNIZED DRUG - CODE] PO (05:17)
[2022-01-19 05:25] LABS: BASOPHILS ABSOLUTE AUTO 0.04 K/mm3 (0.00-0.23); BASOPHILS PERCENT AUTO 0 % (0-2); EOSINOPHILS ABSOLUTE AUTO 0.06 K/mm3 (0.00-0.68); EOSINOPHILS PERCENT AUTO 1 % (0-6); Hematocrit 36.2 % (33.0-51.0); Hemoglobin 12.7 g/dL (11.5-16.0); IMMATURE GRAN ABSOLUTE AUTO 0.05 K/mm3 (0.00-0.10); IMMATURE GRAN PERCENT AUTO 1 % (0-1); LYMPHOCYTES ABSOLUTE AUTO 1.88 K/mm3 (0.84-5.20); LYMPHOCYTES PERCENT AUTO 20 % (21-46); MONOCYTES ABSOLUTE AUTO 0.69 K/mm3 (0.16-1.47); MONOCYTES PERCENT AUTO 8 % (4-13); Mean Corpuscular HGB 30.1 pg (26.0-34.0); Mean Corpuscular HGB Conc 35.1 g/dL (31.5-36.5); Mean Corpuscular Volume 86 fL (80-100); NEUTROPHILS ABSOLUTE AUTO 6.48 K/mm3 (1.96-9.15); NEUTROPHILS PERCENT AUTO 71 % (41-73); Platelet Count 193 K/mm3 (150-400); RDW Coefficient Variation 13.2 % (11.7-14.2); RDW Standard Deviation 40.8 fL (35.1-46.3); Red Blood Cell Count 4.22 M/mm3 (3.80-5.20)
--- NOTE | 2022-01-19 05:33 | NUR ---
SHIFT SUMMARY 81 YR F ADMITTED ON 01/18/22 FOR UTI SEPSIS. FULL CODE. PT WAS VERY CONFUSED AT THE START OF THIS SHIFT BUT SHE FELL ASLEEP SHORTLY IN TO IT AND SLEPT FOR THE ENTIRE NIGHT. SHE GOT UP THIS AM AND WENT TO THE RESTROOM ON HER OWN. AT THIS POINT SHE WAS A&O X 3 AND WAS NO LONGER CONFUSED OR AGITATED. PER LANDSCAPE ARCHITECT SHE IS SR @ 61. FEVER HAS BEEN RESOLVED AND TEMP THIS AM WAS 97.6.
[2022-01-19 05:39] LABS: International Normalized Ratio 2.29; Prothrombin Time Results 22.8 Sec (9.7-11.5)
[2022-01-19 05:58] LABS: Albumin, Blood 2.8 g/dL (3.4-5.0); Bilirubin, Total 0.8 mg/dL (0.1-1.0); Bun/Creatinine Ratio 19.9 (12.0-20.0); Calcium, Blood 8.7 mg/dL (8.5-10.1); Creatinine, Blood 0.75 mg/dL (0.40-1.00); Globulin, Blood 2.8 g/dL (2.2-4.0); Potassium, Blood 3.3 mmol/L (3.5-5.5); Total Protein, Blood 5.6 g/dL (6.4-8.2)
--- NOTE | 2022-01-19 19:27 | NUR ---
SHIFT SUMMARY A&O X 4. VSS. PLEASANT & COOPERATIVE WITH ALL CARE. PT REQUESTED F/C BE REMOVED. REMOVED WITH BALLOON INTACT. PT VOIDING ON HER OWN WITH NO DIFFICULTY. PT IS INDEPENDENT IN THE ROOM FOR RESTROOM USE. APPETITE IS GOOD.
[2022-01-20 05:28] LABS: International Normalized Ratio 1.64; Prothrombin Time Results 16.7 Sec (9.7-11.5)
[2022-01-20 06:00] LABS: Bun/Creatinine Ratio 28.1 (12.0-20.0); Creatinine, Blood 0.71 mg/dL (0.40-1.00); Potassium, Blood 3.7 mmol/L (3.5-5.5)
--- NOTE | 2022-01-20 06:02 | NUR ---
A&OX4. V/S WNL. SBA. IV TO L)FA. ADA DIET. TELE: A-PACED @HR OF 67BPM. VOIDED W/O DIFFICULTY. NO BM THIS SHIFT. WILL CONTINUE TO MONITOR.
--- NOTE | 2022-01-20 10:14 | NUR ---
CARDIAC PT C/O CHEST DISCOMFORT WITH HR 110-120. CRACKLING PRESS OPERATOR REPORTS NO PACING SEEN. MD NOTIFIED & AWARE. ORDERS RECEIVED FOR STAT EKG, PACER INTERROGATION & TROPONIN LAB. EKG SHOWS A.FIB W/RVR AND TROPONIN RESULTS OF 128. NOTIFIED OF EKG RESULTS & LAB RESULT. WAITING ON PACER INTERROGATION.
[2022-01-20] MEDS ORDERED: CEFU500T30 PO (17:27)
--- NOTE | 2022-01-20 17:46 | NUR ---
DC HOME PT DC'D HOME. PRIOR TO DC OF THE TELE SHE WAS WEARING, PSYCHOSOCIAL REHABILITATION COUNSELOR NOTIFIED RN THAT PT CONVERTED BACK INTO HER PACED RHYTHM WITH A HR 60-70'S. PIV DC'D WITH CATH TIP INTACT. NO REDNESS OR SWELLING NOTED AT SITE. DC INSTRUCTIONS GIVEN TO PT. PT VERBALIZED UNDERSTANDING. ALL PERSONAL BELONGINGS SENT HOME WITH PT. PT'S DTR HERE TO DRIVE HER HOME.
== END 2022-01-20 17:55 | disposition home or self-care (01) | DRG 871 ==
LOC: ER 08:52 → MEDS 14:59
PROVIDERS: Internal Medicine; Nurse Practitioner Acute Care; Pharmacist; Student in an Organized Health Care Education/Training Program; ADMIT Hospitalist
DX: A41.51 Sepsis due to Escherichia coli [E. coli] (principal); G92.8 Other toxic encephalopathy; N39.0 Urinary tract infection, site not specified; F11.20 Opioid dependence, uncomplicated; E87.2 Acidosis; R65.20 Severe sepsis without septic shock; I10 Essential (primary) hypertension; I25.10 Atherosclerotic heart disease of native coronary artery without angina pectoris; E11.9 Type 2 diabetes mellitus without complications; G40.909 Epilepsy, unspecified, not intractable, without status epilepticus; K21.9 Gastro-esophageal reflux disease without esophagitis; M19.90 Unspecified osteoarthritis, unspecified site; I48.91 Unspecified atrial fibrillation; K57.90 Diverticulosis of intestine, part unspecified, without perforation or abscess without bleeding; M81.0 Age-related osteoporosis without current pathological fracture; G47.33 Obstructive sleep apnea (adult) (pediatric); G89.29 Other chronic pain; M54.9 Dorsalgia, unspecified; Z93.3 Colostomy status; Z86.73 Personal history of transient ischemic attack (TIA), and cerebral infarction without residual deficits; Z90.49 Acquired absence of other specified parts of digestive tract; Z90.89 Acquired absence of other organs; Z90.710 Acquired absence of both cervix and uterus; Z98.890 Other specified postprocedural states; Z88.5 Allergy status to narcotic agent; Z88.0 Allergy status to penicillin; Z88.8 Allergy status to other drugs, medicaments and biological substances; Z79.82 Long term (current) use of aspirin; Z79.02 Long term (current) use of antithrombotics/antiplatelets; Z79.899 Other long term (current) drug therapy
CPT/HCPCS: 36415; 51701; 51702; 51798; 70450; 71045; 74177; 80048; 80053; 81001; 83605; 83880; 84484; 85025; 85610; 87040; 87077; 87086; 87186; 93005; 93010; 96374-59; 96375-59; 99285-25; A9270; J0696; J1200; J2405; J7120; Q9967

== ENCOUNTER 2022-01-25 07:09 | Emergency (ER) | payer MEDICARE, BC ==
[~2022-01-25] VITALS: Ht 167.6 cm; Wt 74.8 kg
[~2022-01-25 07:09] MED LIST changes: +CEFU500T30 PO; +[UNRECOGNIZED DRUG - CODE] PO
[2022-01-25 07:48] LABS: BASOPHILS ABSOLUTE AUTO 0.06 K/mm3 (0.00-0.23); BASOPHILS PERCENT AUTO 1 % (0-2); EOSINOPHILS ABSOLUTE AUTO 0.13 K/mm3 (0.00-0.68); EOSINOPHILS PERCENT AUTO 2 % (0-6); Hematocrit 38.2 % (33.0-51.0); Hemoglobin 12.7 g/dL (11.5-16.0); IMMATURE GRAN ABSOLUTE AUTO 0.04 K/mm3 (0.00-0.10); IMMATURE GRAN PERCENT AUTO 1 % (0-1); LYMPHOCYTES ABSOLUTE AUTO 1.52 K/mm3 (0.84-5.20); LYMPHOCYTES PERCENT AUTO 22 % (21-46); MONOCYTES ABSOLUTE AUTO 0.48 K/mm3 (0.16-1.47); MONOCYTES PERCENT AUTO 7 % (4-13); Mean Corpuscular HGB 30.2 pg (26.0-34.0); Mean Corpuscular HGB Conc 33.2 g/dL (31.5-36.5); Mean Corpuscular Volume 91 fL (80-100); Mean Platelet Volume 10.9 fL (9.1-12.4); NEUTROPHILS ABSOLUTE AUTO 4.82 K/mm3 (1.96-9.15); NEUTROPHILS PERCENT AUTO 68 % (41-73); Platelet Count 194 K/mm3 (150-400); RDW Coefficient Variation 13.5 % (11.7-14.2); RDW Standard Deviation 44.6 fL (35.1-46.3); Red Blood Cell Count 4.21 M/mm3 (3.80-5.20); White Blood Cell Count 7.05 K/mm3 (4.00-11.30)
[2022-01-25 08:07] LABS: Albumin, Blood 3.2 g/dL (3.4-5.0); Albumin/Globulin Ratio 1.1 (0.8-1.8); Bilirubin, Total 0.4 mg/dL (0.1-1.0); Bun/Creatinine Ratio 25.4 (12.0-20.0); Calcium, Blood 9.2 mg/dL (8.5-10.1); Creatinine, Blood 0.71 mg/dL (0.40-1.00); Globulin, Blood 2.9 g/dL (2.2-4.0); Potassium, Blood 5.1 mmol/L (3.5-5.5); Total Protein, Blood 6.1 g/dL (6.4-8.2)
== END 2022-01-25 10:25 | disposition home or self-care (01) ==
LOC: ER 07:09
PROVIDERS: Emergency Medicine
DX: R07.9 Chest pain, unspecified (principal); R42 Dizziness and giddiness; I11.0 Hypertensive heart disease with heart failure; I50.9 Heart failure, unspecified; E11.9 Type 2 diabetes mellitus without complications; I25.10 Atherosclerotic heart disease of native coronary artery without angina pectoris; I48.91 Unspecified atrial fibrillation; Z79.01 Long term (current) use of anticoagulants; Z88.0 Allergy status to penicillin; Z88.5 Allergy status to narcotic agent; Z88.8 Allergy status to other drugs, medicaments and biological substances; Z79.899 Other long term (current) drug therapy; Z95.5 Presence of coronary angioplasty implant and graft
CPT/HCPCS: 71045; 80053; 84484; 85025; 93005; 93010

== ENCOUNTER → 2022-02-21 | Outpatient (CLI) | payer MEDICARE, BC | END | disposition home or self-care (01) | LOC: PLD 07:50 | DX: L90.5 Scar conditions and fibrosis of skin (principal); L08.89 Other specified local infections of the skin and subcutaneous tissue ==

== ENCOUNTER → 2022-02-28 | Outpatient (CLI) | payer MEDICARE, BC | LOC: LAB SHORT 11:45 | DX: N39.0 Urinary tract infection, site not specified (principal); R39.15 Urgency of urination; R30.0 Dysuria ==

== ENCOUNTER 2022-03-02 03:13 | Emergency (ER) | payer MEDICARE, BC ==
[~2022-03-02] VITALS: Ht 167.6 cm; Wt 77.1 kg
[2022-03-02 04:46] LABS: BASOPHILS ABSOLUTE AUTO 0.04 K/mm3 (0.00-0.23); BASOPHILS PERCENT AUTO 1 % (0-2); EOSINOPHILS ABSOLUTE AUTO 0.08 K/mm3 (0.00-0.68); EOSINOPHILS PERCENT AUTO 2 % (0-6); Hematocrit 38.7 % (33.0-51.0); Hemoglobin 13.3 g/dL (11.5-16.0); IMMATURE GRAN ABSOLUTE AUTO 0.02 K/mm3 (0.00-0.10); IMMATURE GRAN PERCENT AUTO 0 % (0-1); LYMPHOCYTES PERCENT AUTO 28 % (21-46); MONOCYTES ABSOLUTE AUTO 0.42 K/mm3 (0.16-1.47); MONOCYTES PERCENT AUTO 9 % (4-13); Mean Corpuscular HGB 30.6 pg (26.0-34.0); Mean Corpuscular HGB Conc 34.4 g/dL (31.5-36.5); Mean Corpuscular Volume 89 fL (80-100); NEUTROPHILS PERCENT AUTO 60 % (41-73); Platelet Count 163 K/mm3 (150-400); RDW Coefficient Variation 13.2 % (11.7-14.2); RDW Standard Deviation 43.4 fL (35.1-46.3); Red Blood Cell Count 4.35 M/mm3 (3.80-5.20); White Blood Cell Count 4.66 K/mm3 (4.00-11.30)
[2022-03-02 05:01] LABS: Albumin, Blood 3.4 g/dL (3.4-5.0); Bilirubin, Total 0.5 mg/dL (0.1-1.0); Bun/Creatinine Ratio 18.2 (12.0-20.0); Calcium, Blood 9.1 mg/dL (8.5-10.1); Creatinine, Blood 0.88 mg/dL (0.40-1.00); Globulin, Blood 3.3 g/dL (2.2-4.0); Potassium, Blood 3.8 mmol/L (3.5-5.5); Total Protein, Blood 6.7 g/dL (6.4-8.2)
== END 2022-03-02 05:23 | disposition home or self-care (01) ==
LOC: ER 03:13
PROVIDERS: Emergency Medicine
DX: R07.89 Other chest pain (principal); E11.9 Type 2 diabetes mellitus without complications; I25.10 Atherosclerotic heart disease of native coronary artery without angina pectoris; I11.0 Hypertensive heart disease with heart failure; I50.9 Heart failure, unspecified; Z79.84 Long term (current) use of oral hypoglycemic drugs; Z79.02 Long term (current) use of antithrombotics/antiplatelets; Z79.01 Long term (current) use of anticoagulants; Z88.5 Allergy status to narcotic agent; Z88.0 Allergy status to penicillin; Z88.8 Allergy status to other drugs, medicaments and biological substances
CPT/HCPCS: 36415; 71045; 80053; 84484; 85025; 93005; 93010

== ENCOUNTER 2022-03-06 09:53 | Emergency (ER) | payer MEDICARE, BC ==
[~2022-03-06] VITALS: Ht 167.6 cm; Wt 77.1 kg
[2022-03-06 10:54] LABS: Source, Urine Clean Catch
[2022-03-06 11:00] LABS: BASOPHILS ABSOLUTE AUTO 0.04 K/mm3 (0.00-0.23); BASOPHILS PERCENT AUTO 1 % (0-2); EOSINOPHILS ABSOLUTE AUTO 0.07 K/mm3 (0.00-0.68); EOSINOPHILS PERCENT AUTO 1 % (0-6); Hematocrit 39.4 % (33.0-51.0); Hemoglobin 13.5 g/dL (11.5-16.0); IMMATURE GRAN ABSOLUTE AUTO 0.03 K/mm3 (0.00-0.10); IMMATURE GRAN PERCENT AUTO 0 % (0-1); LYMPHOCYTES ABSOLUTE AUTO 1.62 K/mm3 (0.84-5.20); LYMPHOCYTES PERCENT AUTO 19 % (21-46); MONOCYTES ABSOLUTE AUTO 0.44 K/mm3 (0.16-1.47); MONOCYTES PERCENT AUTO 5 % (4-13); Mean Corpuscular HGB 30.5 pg (26.0-34.0); Mean Corpuscular HGB Conc 34.3 g/dL (31.5-36.5); Mean Corpuscular Volume 89 fL (80-100); Mean Platelet Volume 10.7 fL (9.1-12.4); NEUTROPHILS ABSOLUTE AUTO 6.43 K/mm3 (1.96-9.15); NEUTROPHILS PERCENT AUTO 75 % (41-73); Platelet Count 193 K/mm3 (150-400); RDW Coefficient Variation 12.8 % (11.7-14.2); RDW Standard Deviation 42.3 fL (35.1-46.3); Red Blood Cell Count 4.43 M/mm3 (3.80-5.20); White Blood Cell Count 8.63 K/mm3 (4.00-11.30)
[2022-03-06 11:10] LABS: Appearance, Urine Clear (Clear); Bilirubin, Urine Neg (Neg); Blood, Urine Neg (Neg); Color, Urine Yellow (P-Yellow); Glucose Qualitative, Urine Neg (Neg); Ketones, Urine Neg (Neg); Leukocyte Esterase, Urine Neg (Neg); Nitrite, Urine Neg (Neg); Protein, Urine Neg (Neg); Urobilinogen, Urine NORM (Normal)
[2022-03-06 11:17] LABS: Albumin, Blood 3.3 g/dL (3.4-5.0); Bilirubin, Total 0.4 mg/dL (0.1-1.0); Bun/Creatinine Ratio 17.8 (12.0-20.0); Calcium, Blood 8.9 mg/dL (8.5-10.1); Creatinine, Blood 0.84 mg/dL (0.40-1.00); Globulin, Blood 3.2 g/dL (2.2-4.0); Potassium, Blood 4.1 mmol/L (3.5-5.5); Total Protein, Blood 6.5 g/dL (6.4-8.2)
[2022-03-06 11:19] LABS: International Normalized Ratio 2.6; Prothrombin Time Results 25.6 Sec (9.7-11.5)
== END 2022-03-06 12:30 | disposition home or self-care (01) ==
LOC: ER 09:53
PROVIDERS: Student in an Organized Health Care Education/Training Program
DX: R41.0 Disorientation, unspecified (principal); I11.0 Hypertensive heart disease with heart failure; I50.9 Heart failure, unspecified; E11.9 Type 2 diabetes mellitus without complications; I25.10 Atherosclerotic heart disease of native coronary artery without angina pectoris; I48.91 Unspecified atrial fibrillation; K21.9 Gastro-esophageal reflux disease without esophagitis; Z88.0 Allergy status to penicillin; Z88.5 Allergy status to narcotic agent; Z88.8 Allergy status to other drugs, medicaments and biological substances; Z79.899 Other long term (current) drug therapy; Z79.01 Long term (current) use of anticoagulants; Z79.84 Long term (current) use of oral hypoglycemic drugs; Z79.82 Long term (current) use of aspirin; Z95.5 Presence of coronary angioplasty implant and graft
CPT/HCPCS: 36415; 70450; 80053; 81003; 85025; 85610

== ENCOUNTER 2022-03-09 07:36 | Observation (INO) | payer MEDICARE, BC ==
[~2022-03-09] VITALS: Ht 167.6 cm; Wt 76.9 kg
[2022-03-09 08:08] LABS: BASOPHILS ABSOLUTE AUTO 0.03 K/mm3 (0.00-0.23); BASOPHILS PERCENT AUTO 0 % (0-2); EOSINOPHILS PERCENT AUTO 1 % (0-6); Hematocrit 40.6 % (33.0-51.0); Hemoglobin 14.1 g/dL (11.5-16.0); IMMATURE GRAN ABSOLUTE AUTO 0.01 K/mm3 (0.00-0.10); IMMATURE GRAN PERCENT AUTO 0 % (0-1); LYMPHOCYTES ABSOLUTE AUTO 1.55 K/mm3 (0.84-5.20); LYMPHOCYTES PERCENT AUTO 21 % (21-46); MONOCYTES ABSOLUTE AUTO 0.55 K/mm3 (0.16-1.47); MONOCYTES PERCENT AUTO 7 % (4-13); Mean Corpuscular HGB 30.6 pg (26.0-34.0); Mean Corpuscular HGB Conc 34.7 g/dL (31.5-36.5); Mean Corpuscular Volume 88 fL (80-100); NEUTROPHILS ABSOLUTE AUTO 5.31 K/mm3 (1.96-9.15); NEUTROPHILS PERCENT AUTO 70 % (41-73); Platelet Count 181 K/mm3 (150-400); RDW Coefficient Variation 13.1 % (11.7-14.2); RDW Standard Deviation 41.9 fL (35.1-46.3); Red Blood Cell Count 4.61 M/mm3 (3.80-5.20); White Blood Cell Count 7.55 K/mm3 (4.00-11.30)
[2022-03-09 08:25] LABS: International Normalized Ratio 2.66; Prothrombin Time Results 26.2 Sec (9.7-11.5)
[2022-03-09 08:26] LABS: Albumin, Blood 3.6 g/dL (3.4-5.0); Albumin/Globulin Ratio 1.1 (0.8-1.8); Bilirubin, Total 0.6 mg/dL (0.1-1.0); Bun/Creatinine Ratio 22.4 (12.0-20.0); Calcium, Blood 8.8 mg/dL (8.5-10.1); Creatinine, Blood 0.8 mg/dL (0.40-1.00); Globulin, Blood 3.2 g/dL (2.2-4.0); Magnesium, Blood 1.6 mg/dL (1.6-2.4); Potassium, Blood 4.1 mmol/L (3.5-5.5); Total Protein, Blood 6.8 g/dL (6.4-8.2)
--- NOTE | 2022-03-09 15:59 | NUR ---
DEVICE INTERROGATION DONE PER HOSPITALIST ORDER. EGM SHOWS SINUS RHYTHM. NORMAL FUNCTIONING DUAL CHAMBER PACEMAKER. 11.5 YEARS BATTERY LONGEVITY. AP 63% EDUCATIONAL INSTITUTION PRESIDENT 0% . STABLE CAPTURE THRESHOLDS. INFORMATION GIVEN TO RN.
--- NOTE | 2022-03-09 17:27 | NUR ---
PT UP TO ROOM FROM ED. PT ALERT AND ORIENTED, FOLLOWS COMMANDS. INDEPENDENT IN ROOM. C/O BACK PAIN. MEDICATED WITH PRN MEDICATION X 1. PT ON TELE, APACING. SCHEDULED STRESS TEST TOMORROW. CALL LIGHT WITHIN REACH.
--- NOTE | 2022-03-09 19:33 | NUR ---
AWAKE. ATTENTIVE. DENIES CHEST PAIN. ATATES HAVING OCCASIONAL DIZZINESS. INSTRUCTED AND AGREES TO USE OF CALL LIGHT IF NEEDS TO GET OUT OF BED. CALL LIGHT IN REACH
--- NOTE | 2022-03-10 03:40 | NUR ---
ORGAN PIPE MAKER METAL SUMMARY HAS BEEN RESTING QUIETLY WITH FEW INTERRUPTIONS SINCE HS. DENIED CHEST PAIN WHEN ASKED, VOICED OCCSAIONAL DIZZINESS, BUT NO NOTED S/S ACUTE DISTRESS. UP WITH ASSIST TO AND FROM THE BATHROOM TO VOID. NPO SINCE 0000 FOR STRESS TEST SCHEDULED LATER TODAY. CALL LIGHT IN REACH. TELE A PACED (PACEMAKER). VSS. WILL CONTINUE TO MONITOR
[2022-03-10 04:58] LABS: Hematocrit 37.1 % (33.0-51.0); Hemoglobin 12.8 g/dL (11.5-16.0); Mean Corpuscular HGB 30.4 pg (26.0-34.0); Mean Corpuscular HGB Conc 34.5 g/dL (31.5-36.5); Mean Corpuscular Volume 88 fL (80-100); Mean Platelet Volume 10.2 fL (9.1-12.4); Platelet Count 158 K/mm3 (150-400); RDW Coefficient Variation 13.2 % (11.7-14.2); RDW Standard Deviation 42.7 fL (35.1-46.3); Red Blood Cell Count 4.21 M/mm3 (3.80-5.20); White Blood Cell Count 5.47 K/mm3 (4.00-11.30)
[2022-03-10 05:19] LABS: Bun/Creatinine Ratio 24.8 (12.0-20.0); Calcium, Blood 8.6 mg/dL (8.5-10.1); Creatinine, Blood 0.85 mg/dL (0.40-1.00); Potassium, Blood 3.9 mmol/L (3.5-5.5)
[2022-03-10 05:37] LABS: International Normalized Ratio 2.81; Prothrombin Time Results 27.6 Sec (9.7-11.5)
[2022-03-10] MEDS ORDERED: HYDR10 PO (17:35)
== END 2022-03-10 18:18 | disposition home or self-care (01) ==
LOC: ER 07:36 → MEDS 07:37
PROVIDERS: Nurse Practitioner Acute Care; Student in an Organized Health Care Education/Training Program; ADMIT Internal Medicine
DX: R07.9 Chest pain, unspecified (principal); I25.10 Atherosclerotic heart disease of native coronary artery without angina pectoris; E11.9 Type 2 diabetes mellitus without complications; E78.5 Hyperlipidemia, unspecified; I48.20 Chronic atrial fibrillation, unspecified; Z79.01 Long term (current) use of anticoagulants; G47.33 Obstructive sleep apnea (adult) (pediatric); G40.909 Epilepsy, unspecified, not intractable, without status epilepticus; K21.9 Gastro-esophageal reflux disease without esophagitis; I50.9 Heart failure, unspecified; I11.0 Hypertensive heart disease with heart failure; M81.0 Age-related osteoporosis without current pathological fracture; Z90.710 Acquired absence of both cervix and uterus; Z79.84 Long term (current) use of oral hypoglycemic drugs; Z91.19 Patient's noncompliance with other medical treatment and regimen; Z86.73 Personal history of transient ischemic attack (TIA), and cerebral infarction without residual deficits; Z79.82 Long term (current) use of aspirin; Z95.5 Presence of coronary angioplasty implant and graft; Z79.02 Long term (current) use of antithrombotics/antiplatelets; Z88.5 Allergy status to narcotic agent; Z88.0 Allergy status to penicillin
CPT/HCPCS: 36415; 71046; 78452; 80048; 80053; 82947; 83735; 84484; 85025; 85027; 85610; 93005; 93010; 93017; 93280; 96365; 96375; 99285-25; A9270; A9500; G0378; J0360; J0706; J2785; J3475

== ENCOUNTER 2022-03-17 03:32 | Emergency (ER) | payer MEDICARE, BC ==
[~2022-03-17] VITALS: Ht 167.6 cm; Wt 77.1 kg
[2022-03-17 04:24] LABS: BASOPHILS ABSOLUTE AUTO 0.04 K/mm3 (0.00-0.23); BASOPHILS PERCENT AUTO 1 % (0-2); EOSINOPHILS ABSOLUTE AUTO 0.11 K/mm3 (0.00-0.68); EOSINOPHILS PERCENT AUTO 2 % (0-6); Hematocrit 41.1 % (33.0-51.0); Hemoglobin 14.2 g/dL (11.5-16.0); IMMATURE GRAN ABSOLUTE AUTO 0.01 K/mm3 (0.00-0.10); IMMATURE GRAN PERCENT AUTO 0 % (0-1); LYMPHOCYTES ABSOLUTE AUTO 1.26 K/mm3 (0.84-5.20); LYMPHOCYTES PERCENT AUTO 22 % (21-46); MONOCYTES ABSOLUTE AUTO 0.45 K/mm3 (0.16-1.47); MONOCYTES PERCENT AUTO 8 % (4-13); Mean Corpuscular HGB 30.3 pg (26.0-34.0); Mean Corpuscular HGB Conc 34.5 g/dL (31.5-36.5); Mean Corpuscular Volume 88 fL (80-100); Mean Platelet Volume 10.6 fL (9.1-12.4); NEUTROPHILS ABSOLUTE AUTO 3.94 K/mm3 (1.96-9.15); NEUTROPHILS PERCENT AUTO 68 % (41-73); Platelet Count 161 K/mm3 (150-400); RDW Coefficient Variation 13.2 % (11.7-14.2); RDW Standard Deviation 42.4 fL (35.1-46.3); Red Blood Cell Count 4.69 M/mm3 (3.80-5.20); White Blood Cell Count 5.81 K/mm3 (4.00-11.30)
[2022-03-17 04:38] LABS: Albumin, Blood 3.6 g/dL (3.4-5.0); Albumin/Globulin Ratio 1.1 (0.8-1.8); Bilirubin, Total 0.7 mg/dL (0.1-1.0); Bun/Creatinine Ratio 30.9 (12.0-20.0); Calcium, Blood 9.7 mg/dL (8.5-10.1); Creatinine, Blood 0.74 mg/dL (0.40-1.00); Globulin, Blood 3.4 g/dL (2.2-4.0); Potassium, Blood 4.7 mmol/L (3.5-5.5)
== END 2022-03-17 06:42 | disposition home or self-care (01) ==
LOC: ER 03:32
PROVIDERS: Student in an Organized Health Care Education/Training Program
DX: I48.91 Unspecified atrial fibrillation (principal); I25.10 Atherosclerotic heart disease of native coronary artery without angina pectoris; I11.0 Hypertensive heart disease with heart failure; I50.9 Heart failure, unspecified; E11.9 Type 2 diabetes mellitus without complications; Z88.5 Allergy status to narcotic agent; Z88.0 Allergy status to penicillin; Z88.8 Allergy status to other drugs, medicaments and biological substances; Z79.899 Other long term (current) drug therapy; Z79.01 Long term (current) use of anticoagulants; Z86.73 Personal history of transient ischemic attack (TIA), and cerebral infarction without residual deficits
CPT/HCPCS: 36415; 71045; 80053; 83690; 83880; 84484; 85025; 93005; 93010

== ENCOUNTER 2022-04-25 07:40 | Day surgery (SDC) | payer MEDICARE, BC ==
[~2022-04-25 07:40] MED LIST changes: +MAGNESIUM GLU27.5 MG PO; +SOAANZ20 M1 PO; -[UNRECOGNIZED DRUG - CODE] PO
== END 2022-04-25 07:46 | disposition home or self-care (01) ==
LOC: MOI US 07:40
DX: C50.812 Malignant neoplasm of overlapping sites of left female breast (principal)
CPT/HCPCS: 19285; 77065

== ENCOUNTER 2022-04-25 09:19 | Day surgery (SDC) | payer MEDICARE, BC ==
[~2022-04-25] VITALS: Ht 167.6 cm; Wt 78.5 kg
--- NOTE | 2022-04-25 11:17 | NUR ---
Ambulatory in Day Surgery Surgical site prepped with 2% Chlorhexidine cloth wipe. Patient up to Ambulate independently. Gait steady. Max Paws warming gown applied. History, Chart, Medications and Allergies reviewed before start of procedure.Lungs clear T/O to Auscultation. Patient confirms NPO status and agrees with scheduled surgery. Pre-Op teaching done. Pt verbalizes understanding. Patient States Post-Procedure ride home has been arranged. Patient reports completing Chlorhexadine shower X2 prior to admission to hospital. Patient reports completing Chlorhexadine shower X2 prior to admission to hospital.
--- NOTE | 2022-04-25 16:02 | NUR ---
Patient up to Ambulate with assist. Gait slightly unsteady. Dressing to procedure site clean, dry, intact with no visible drainage, swelling, erythema or bruising noted. Breast binder in place. Discharge instructions reviewed with patient. Patient verbalizes understanding. Copy given to patient to take home. Prescription written for Tramadol but patient allergic to Codeine. Will shred RX. New verbal one time order for oxycodone 5mg x1 prior to discharge. Pt states thats what she takes at home. Discharged via wheelchair to private car for ride home to daughter.
--- NOTE | 2022-04-25 16:06 | NUR ---
PT STATES YES TO PAIN MED WORKING. PAIN LEVEL 4/10 FROM 12/16.
== END 2022-04-25 15:56 | disposition home or self-care (01) ==
LOC: NM 09:19 → ORSCMMR 09:19 → NM 10:00
PROVIDERS: Surgery
PROC: 07B60ZX Excision of Left Axillary Lymphatic, Open Approach, Diagnostic (ICD-10-PCS; principal; 2022-04-25 11:00)
PROC: 0HBU0ZZ Excision of Left Breast, Open Approach (ICD-10-PCS; principal; 2022-04-25 11:00)
DX: C50.812 Malignant neoplasm of overlapping sites of left female breast (principal); C77.3 Secondary and unspecified malignant neoplasm of axilla and upper limb lymph nodes; Z17.0 Estrogen receptor positive status [ER+]; E11.9 Type 2 diabetes mellitus without complications; I10 Essential (primary) hypertension; E78.5 Hyperlipidemia, unspecified; I25.10 Atherosclerotic heart disease of native coronary artery without angina pectoris; Z95.0 Presence of cardiac pacemaker; Z79.02 Long term (current) use of antithrombotics/antiplatelets; Z79.899 Other long term (current) drug therapy; Z79.01 Long term (current) use of anticoagulants; Z87.891 Personal history of nicotine dependence
CPT/HCPCS: 38792; 82947; A9270; A9520; J0690; J1100; J1885; J2250; J2405; J2704; J2795; J3010; J7120; Q9968

== ENCOUNTER 2022-05-15 08:04 | Day surgery (SDC) | payer MEDICARE, BC ==
[~2022-05-15] VITALS: Ht 167.6 cm; Wt 80.5 kg
[2022-05-15 09:43] LABS: International Normalized Ratio 1.07; Prothrombin Time Results 11.2 Sec (9.7-11.5)
--- NOTE | 2022-05-15 10:08 | NUR ---
05/15/22 1008 Yogi Moya PT [facility].T
--- NOTE | 2022-05-15 10:15 | NUR ---
05/15/22 Nazario5 Vanessa Roca A LEFT BREAST INCISION DRY AND INTACT.
== END 2022-05-15 11:44 | disposition home or self-care (01) ==
LOC: ORSCSDS 08:04
PROVIDERS: Surgery
PROC: 0HBU0ZZ Excision of Left Breast, Open Approach (ICD-10-PCS; principal; 2022-05-15 10:00)
DX: C50.812 Malignant neoplasm of overlapping sites of left female breast (principal); Z17.1 Estrogen receptor negative status [ER-]; C77.3 Secondary and unspecified malignant neoplasm of axilla and upper limb lymph nodes; I25.10 Atherosclerotic heart disease of native coronary artery without angina pectoris; E11.9 Type 2 diabetes mellitus without complications; E78.5 Hyperlipidemia, unspecified; I10 Essential (primary) hypertension; Z95.0 Presence of cardiac pacemaker; I48.0 Paroxysmal atrial fibrillation; Z79.01 Long term (current) use of anticoagulants; Z79.02 Long term (current) use of antithrombotics/antiplatelets; Z79.84 Long term (current) use of oral hypoglycemic drugs; Z79.899 Other long term (current) drug therapy
CPT/HCPCS: 82947; 85610; 85730; 88307; J0690; J1100; J1885; J2405; J2795; J3010; J7120

== ENCOUNTER → 2022-06-14 | Outpatient (CLI) | payer MEDICARE, BC | LOC: LAB SHORT 14:57 → LAB 14:57 | DX: D48.5 Neoplasm of uncertain behavior of skin (principal) | CPT/HCPCS: 88305 ==

== ENCOUNTER → 2022-10-23 | Outpatient (CLI) | payer MEDICARE, BC | END | disposition home or self-care (01) | LOC: PLD 15:09 → LAB SHORT 15:09 | DX: D48.5 Neoplasm of uncertain behavior of skin (principal) | CPT/HCPCS: 88304 ==

== ENCOUNTER 2023-05-12 12:22 | Observation (INO) | payer MEDICARE, BC ==
[~2023-05-12] VITALS: Ht 167.6 cm; Wt 80.0 kg
[2023-05-12 12:53] LABS: BASOPHILS ABSOLUTE AUTO 0.05 K/mm3 (0.00-0.23); BASOPHILS PERCENT AUTO 1 % (0-2); EOSINOPHILS ABSOLUTE AUTO 0.15 K/mm3 (0.00-0.68); EOSINOPHILS PERCENT AUTO 2 % (0-6); Hematocrit 36.3 % (33.0-51.0); Hemoglobin 12.7 g/dL (11.5-16.0); IMMATURE GRAN ABSOLUTE AUTO 0.02 K/mm3 (0.00-0.10); IMMATURE GRAN PERCENT AUTO 0 % (0-1); LYMPHOCYTES ABSOLUTE AUTO 1.73 K/mm3 (0.84-5.20); LYMPHOCYTES PERCENT AUTO 27 % (21-46); MONOCYTES ABSOLUTE AUTO 0.66 K/mm3 (0.16-1.47); MONOCYTES PERCENT AUTO 10 % (4-13); Mean Corpuscular HGB 30.8 pg (26.0-34.0); Mean Corpuscular Volume 88 fL (80-100); Mean Platelet Volume 10.6 fL (9.1-12.4); NEUTROPHILS ABSOLUTE AUTO 3.82 K/mm3 (1.96-9.15); NEUTROPHILS PERCENT AUTO 59 % (41-73); Platelet Count 164 K/mm3 (150-400); RDW Coefficient Variation 12.9 % (11.7-14.2); RDW Standard Deviation 41.5 fL (35.1-46.3); Red Blood Cell Count 4.13 M/mm3 (3.80-5.20); White Blood Cell Count 6.43 K/mm3 (4.00-11.30)
[2023-05-12 13:04] LABS: International Normalized Ratio 1.97; Prothrombin Time Results 19.9 Sec (9.7-11.5)
[2023-05-12 13:09] LABS: Albumin, Blood 3.7 g/dL (3.4-5.0); Albumin/Globulin Ratio 1.2 (0.8-1.8); Bilirubin, Total 0.3 mg/dL (0.1-1.0); Bun/Creatinine Ratio 24.7 (12.0-20.0); Creatinine, Blood 0.89 mg/dL (0.40-1.00); Globulin, Blood 3.1 g/dL (2.2-4.0); Potassium, Blood 4.3 mmol/L (3.5-5.5); Total Protein, Blood 6.8 g/dL (6.4-8.2)
[2023-05-12 17:21] VITALS: BP 194/69
[2023-05-12] MEDS ORDERED: Coumadin5 MG PO (18:43)
[2023-05-12] MEDS ORDERED: Nitrofurantoin100 M1 PO (18:50)
--- NOTE | 2023-05-12 18:52 | NUR ---
ALEXANDER TALBERT AT [facility] CALLED BACK REPORT GIVEN TO HER ON PATIENT
--- NOTE | 2023-05-12 19:07 | NUR ---
NOTE: PT CAME UP FROM THE ED: ARRIVED IN THE ROOM AT 1705. SHE TRANSFERRED HERSELF FROM THE ED BED TO THE MEDICAL BED IN THE ROOM. SHE IS ALERT AND ORIENTED, CONNECTED TO TELEMETRY, GIVEN A DINNER TRAY AND WATER. NO SIGNS OR SYMPTOMS OF DISTRESS. EATING AND DRINKING WITHOUT DIFFICULTY. ORIENTED TO ROOM AND STAFF. CALL LIGHT WITHIN REACH.
[2023-05-13 01:10] VITALS: BP 153/68
--- NOTE | 2023-05-13 01:44 | NUR ---
DURING ROUNDING CHECKED ON PT AND ASSISTED TO BATHROOM. AFTER GETTING PT BACK INTO BED PT BEGAN TO HAVE MILD TREMORS T/O. VSS. CBG 117. PT DID NOT RECEIVE EVENING DOSE OF KEPPRA RX WAS RETIMED FOR AM DOSE. HOSPITALIST NOTIFIED AND ONE TIME DOSE GIVEN AND MG, CMP LABS ORDERED. HOSPITALIST LAYED EYES ON PT AND GAVE INSTRUCTIONS TO WAIT FOR LAB RESULTS, AND CONTINUE TO MONITOR PT FOR CHANGE IN CONDITION.
[2023-05-13 01:50] VITALS: BP 153/68
[2023-05-13 02:16] LABS: International Normalized Ratio 2.06; Prothrombin Time Results 20.8 Sec (9.7-11.5)
[2023-05-13 02:25] LABS: Alanine Aminotransfer (ALT/SGP 27 U/L (12-78); Albumin, Blood 3.6 g/dL (3.4-5.0); Albumin/Globulin Ratio 1.1 (0.8-1.8); Alk Phos 64 U/L (50-136); Anion Gap 3 mmol/L (6-16); Aspartate Aminotrans (AST/SGOT 21 U/L (12-37); Bilirubin, Total 0.4 mg/dL (0.1-1.0); Blood Urea Nitrogen 23 mg/dL (8-24); Bun/Creatinine Ratio 21.7 (12.0-20.0); CHOL/HDL RATIO 3.8; CO2, Blood 30 mmol/L (21-32); Calcium, Blood 9.5 mg/dL (8.5-10.1); Chloride, Blood 106 mmol/L (98-108); Cholesterol 207 mg/dL (50-200); Creatinine, Blood 1.06 mg/dL (0.40-1.00); Globulin, Blood 3.3 g/dL (2.2-4.0); Glomerular Filtration Rate 52 (60-); Glucose, Blood 117 mg/dL (70-99); HDL Cholesterol 55 mg/dL (>39); LDL/HDL RATIO 1.9; Low Density Lipoprotein Chol 102 mg/dL (0-110); Magnesium, Blood 1.7 mg/dL (1.6-2.4); Potassium, Blood 4.7 mmol/L (3.5-5.5); Sodium, Blood 139 mmol/L (136-145); Total Protein, Blood 6.9 g/dL (6.4-8.2); Triglycerides 248 mg/dL (30-160); Very Low Density Lipoprot Chol 49 mg/dL (6-32)
--- NOTE | 2023-05-13 05:31 | NUR ---
SHIFT SUMMARY NOC PT A/O X 4. PLEASANT AND COOPERATIVE WITH CARE. NO RESIDUAL DEFICITS FROM TIA. SPEECH IS NORMAL. PT INDPENDENT IN ROOM. HOSPITALIST NOTIFIED PT RX RECONCILED AND ORDERS ARE BEING SUBMITTED. DURING ROUNDING PT WAS SBA TO BATHROOM, AND UPON RETURNING TO BED STARTED TO HAVE MILD TREMORS T/O, VSS, CBG 114, MG 1.7, K 4.7, NA 139, CA 9.5 AFTER NOTIFYING HOSPITALIST AND LAB DRAWS. PT RECEIVED ONE TIME DOSE OF KEPPRA THAT THEY MISSED LAST NIGHT. PT CURRENTLY IS NO LONGER HAVING TREMORS. WCTM. PT ON TELE ATRIAL PACED IN 60'S. PT HAS ECHO AND VENOUS DUPLEX US SCHEDULED FOR TODAY. PT IS CURRENTLY RESTING WITH BED IN LOWEST POSITION, AND CALL LIGHT WITHIN REACH.
[2023-05-13 07:40] VITALS: BP 170/73
[2023-05-13] MEDS ORDERED: ANASTROZOLE1 M7 PO (08:41)
[2023-05-13] MEDS ORDERED: LETR2.5 PO (10:02)
[2023-05-13] MEDS ORDERED: PRAV20 PO (15:26)
[2023-05-13] MEDS ORDERED: ASPI81CH PO (15:26)
[2023-05-13 16:16] VITALS: BP 146/73
--- NOTE | 2023-05-13 18:34 | NUR ---
PT DISCHARGED THE PT VERBALIZED UNDERSTANDING OF THE DC INSTRUCTIONS. PT WAS REMINDED TO FOLLOW UP WITH HER PCP NEXT WEEK FOR A POST HOSPITAL REVIEW. [facility] THE PT WAS TRANSFERED VIA WHEELCHAIR ACCOMPANIED BY THE TRUCK TRAILER MECHANIC
== END 2023-05-13 16:30 | disposition home or self-care (01) ==
LOC: ER 12:22 → MEDS 12:23
PROVIDERS: Family Medicine; Internal Medicine; ADMIT Internal Medicine
DX: G45.9 Transient cerebral ischemic attack, unspecified (principal); I48.91 Unspecified atrial fibrillation; I25.10 Atherosclerotic heart disease of native coronary artery without angina pectoris; I11.0 Hypertensive heart disease with heart failure; I50.9 Heart failure, unspecified; E11.9 Type 2 diabetes mellitus without complications; R29.700 NIHSS score 0; G47.33 Obstructive sleep apnea (adult) (pediatric); K21.9 Gastro-esophageal reflux disease without esophagitis; Z95.5 Presence of coronary angioplasty implant and graft; Z87.891 Personal history of nicotine dependence; Z88.5 Allergy status to narcotic agent; Z88.0 Allergy status to penicillin; Z88.8 Allergy status to other drugs, medicaments and biological substances; Z79.01 Long term (current) use of anticoagulants; Z79.84 Long term (current) use of oral hypoglycemic drugs; Z79.899 Other long term (current) drug therapy
CPT/HCPCS: 36415; 70450; 80053; 80061; 82947; 83735; 84484; 85025; 85610; 85730; 93005; 93010; 93306; 93880; 97110; 97161; 97530; 99285-25; A9270; G0378

== ENCOUNTER 2023-10-22 01:06 | Observation (INO) | payer MEDICARE, BC ==
[~2023-10-22] VITALS: Ht 167.6 cm; Wt 80.6 kg
[~2023-10-22 01:06] MED LIST changes: +ANASTROZOLE1 M7 PO; +Aspir 8181 MG PO; +Coumadin5 MG PO; -KEPPRA XR750 MG PO; +KEPPRA250 M1 PO; +LETR2.5 PO; +Nitrofurantoin100 M1 PO; +PRAV20 PO
[2023-10-22 01:24] LABS: BASOPHILS ABSOLUTE AUTO 0.05 K/mm3 (0.00-0.23); BASOPHILS PERCENT AUTO 1 % (0-2); EOSINOPHILS ABSOLUTE AUTO 0.19 K/mm3 (0.00-0.68); EOSINOPHILS PERCENT AUTO 3 % (0-6); Hematocrit 40.5 % (33.0-51.0); IMMATURE GRAN ABSOLUTE AUTO 0.03 K/mm3 (0.00-0.10); IMMATURE GRAN PERCENT AUTO 1 % (0-1); LYMPHOCYTES ABSOLUTE AUTO 1.66 K/mm3 (0.84-5.20); LYMPHOCYTES PERCENT AUTO 29 % (21-46); MONOCYTES PERCENT AUTO 9 % (4-13); Mean Corpuscular HGB 30.5 pg (26.0-34.0); Mean Corpuscular HGB Conc 34.6 g/dL (31.5-36.5); Mean Corpuscular Volume 88 fL (80-100); Mean Platelet Volume 10.8 fL (9.1-12.4); NEUTROPHILS ABSOLUTE AUTO 3.29 K/mm3 (1.96-9.15); NEUTROPHILS PERCENT AUTO 58 % (41-73); Platelet Count 169 K/mm3 (150-400); RDW Coefficient Variation 12.9 % (11.7-14.2); RDW Standard Deviation 41.7 fL (35.1-46.3); Red Blood Cell Count 4.59 M/mm3 (3.80-5.20); White Blood Cell Count 5.72 K/mm3 (4.00-11.30)
[2023-10-22 01:37] LABS: International Normalized Ratio 1.53; Prothrombin Time Results 15.7 Sec (9.7-11.5)
[2023-10-22 01:42] LABS: Alanine Aminotransfer (ALT/SGP 28 U/L (12-78); Albumin, Blood 3.9 g/dL (3.4-5.0); Albumin/Globulin Ratio 1.1 (0.8-1.8); Alk Phos 72 U/L (50-136); Anion Gap 9 mmol/L (3-11); Aspartate Aminotrans (AST/SGOT 29 U/L (12-37); Bilirubin, Total 0.5 mg/dL (0.1-1.0); Blood Urea Nitrogen 22 mg/dL (8-24); Bun/Creatinine Ratio 26.4 (12.0-20.0); CO2, Blood 29 mmol/L (21-32); Calcium, Blood 10.2 mg/dL (8.5-10.1); Chloride, Blood 102 mmol/L (98-108); Creatinine, Blood 0.83 mg/dL (0.40-1.00); Globulin, Blood 3.4 g/dL (2.2-4.0); Glomerular Filtration Rate 70 (60-); Glucose, Blood 124 mg/dL (70-99); Sodium, Blood 135 mmol/L (136-145); Total Protein, Blood 7.3 g/dL (6.4-8.2)
[2023-10-22 02:43] LABS: Source, Urine Straight Cath
[2023-10-22 02:48] LABS: Bilirubin, Urine Neg (Neg); Blood, Urine Neg (Neg); Glucose Qualitative, Urine Neg (Neg); Ketones, Urine Neg (Neg); Leukocyte Esterase, Urine 1+ (Neg); Nitrite, Urine Neg (Neg); Protein, Urine Neg (Neg); Urobilinogen, Urine NORM (Normal)
[2023-10-22 03:03] LABS: Appearance, Urine Clear (Clear); Color, Urine Yellow (P-Yellow)
[2023-10-22 03:04] LABS: Red Blood Cells, Urine Not Seen /hpf (0-2); White Blood Cells, Urine 0-2 /hpf (0-5)
[2023-10-22 03:05] LABS: Bacteria Rare /hpf; Squamous Epithelial Cells Rare /hpf (Few)
[2023-10-22 03:15] LABS: CHOL/HDL RATIO 3.1; Cholesterol 175 mg/dL (50-200); HDL Cholesterol 56 mg/dL (>39); LDL/HDL RATIO 1.6; Low Density Lipoprotein Chol 90 mg/dL (0-110); Triglycerides 146 mg/dL (30-160); Very Low Density Lipoprot Chol 29 mg/dL (6-32)
[2023-10-22 04:36] VITALS: BP 150/81
[2023-10-22 04:41] LABS: BASOPHILS ABSOLUTE AUTO 0.05 K/mm3 (0.00-0.23); BASOPHILS PERCENT AUTO 1 % (0-2); EOSINOPHILS PERCENT AUTO 2 % (0-6); Hematocrit 38.4 % (33.0-51.0); Hemoglobin 13.3 g/dL (11.5-16.0); IMMATURE GRAN ABSOLUTE AUTO 0.02 K/mm3 (0.00-0.10); IMMATURE GRAN PERCENT AUTO 0 % (0-1); LYMPHOCYTES ABSOLUTE AUTO 1.22 K/mm3 (0.84-5.20); LYMPHOCYTES PERCENT AUTO 20 % (21-46); MONOCYTES ABSOLUTE AUTO 0.41 K/mm3 (0.16-1.47); MONOCYTES PERCENT AUTO 7 % (4-13); Mean Corpuscular HGB 30.3 pg (26.0-34.0); Mean Corpuscular HGB Conc 34.6 g/dL (31.5-36.5); Mean Corpuscular Volume 88 fL (80-100); Mean Platelet Volume 10.5 fL (9.1-12.4); NEUTROPHILS ABSOLUTE AUTO 4.36 K/mm3 (1.96-9.15); NEUTROPHILS PERCENT AUTO 71 % (41-73); Platelet Count 160 K/mm3 (150-400); RDW Coefficient Variation 12.7 % (11.7-14.2); RDW Standard Deviation 40.8 fL (35.1-46.3); Red Blood Cell Count 4.39 M/mm3 (3.80-5.20); White Blood Cell Count 6.16 K/mm3 (4.00-11.30)
[2023-10-22 05:04] LABS: Albumin, Blood 3.8 g/dL (3.4-5.0); Albumin/Globulin Ratio 1.2 (0.8-1.8); Bilirubin, Total 0.6 mg/dL (0.1-1.0); Bun/Creatinine Ratio 23.9 (12.0-20.0); Creatinine, Blood 0.84 mg/dL (0.40-1.00); Globulin, Blood 3.1 g/dL (2.2-4.0); Potassium, Blood 4.1 mmol/L (3.5-5.5); Total Protein, Blood 6.9 g/dL (6.4-8.2)
--- NOTE | 2023-10-22 06:08 | NUR ---
SHIFT SUMMARY PT A&OX4 AND ANSWERS QUESTIONS APPROPRIATELY. PT ARRIVED ON UNIT VIA GURNEY AT 0427. PT ORIENTED TO UNIT AND EDUCATION PROVIDED ON IGNITION POLICIES AND GUIDELINES. VSS, NO COMPLAINTS OF CP OR SOB. NO ACUTE EVENTS AT THIS TIME. CALL LIGHT IN REACH.
[2023-10-22] MEDS ORDERED: Warfarin Sodium 2 MG Tab PO ONE (06:25)
[2023-10-22] MEDS ORDERED: Insulin Human Lispro 100 Units/ML 3ML Syringe SC SCH (07:30)
[2023-10-22 08:12] VITALS: BP 201/74
[2023-10-22] MEDS ORDERED: Sotalol HCl 80 MG Tab PO SCH (09:00)
[2023-10-22] MEDS ORDERED: Aspirin 81 MG Chew PO SCH (09:00)
[2023-10-22] MEDS ORDERED: HydrALAZINE HCl 25 MG Tab PO SCH (09:00)
[2023-10-22] MEDS ORDERED: Atorvastatin 40 MG Tab PO SCH (09:00)
[2023-10-22] MEDS ORDERED: Losartan Potassium 50 MG Tab PO SCH (09:00)
[2023-10-22 10:16] VITALS: BP 176/85
[2023-10-22] MEDS ORDERED: HydrALAZINE HCl 25 MG Tab PO PRN (12:47)
[2023-10-22 15:52] VITALS: BP 162/81
--- NOTE | 2023-10-22 16:21 | NUR ---
Upon receiving a referral for spiritual care, I visited the patient. She is very pleasant and tells me about her solid family and addis support as well as her own inner coping skills and resources that she draws from. We discuss her life story and she weaves in her spiritual journey and explains about the family unit complications through the years. I provide therapeutic listening and recitation of scripture. Patient responded well and voiced appreciation for the visit.
--- NOTE | 2023-10-22 16:39 | NUR ---
DISCHARGE PATIENT IS EDUCATED ON DISCHARGE INSTRUCTIONS AND VERBALIZES AND SIGNS UNDERSTANDING. IV TAKEN OUT INTACT. PATIENT HAS FAMILY MEMBER ON THEIR WAY TO TAKE HER HOME.
[2023-10-22] MEDS ORDERED: Warfarin Sodium 7.5 MG Tab PO SCH (18:00)
[2023-10-23] MEDS ORDERED: Warfarin Sodium 5 MG Tab PO SCH (18:00)
== END 2023-10-22 17:01 | disposition home or self-care (01) ==
LOC: ER 01:06 → MEDS 01:07
PROVIDERS: Emergency Medicine; Family Medicine; ADMIT Student in an Organized Health Care Education/Training Program
DX: G45.9 Transient cerebral ischemic attack, unspecified (principal); I48.20 Chronic atrial fibrillation, unspecified; I25.10 Atherosclerotic heart disease of native coronary artery without angina pectoris; I11.0 Hypertensive heart disease with heart failure; I50.9 Heart failure, unspecified; E11.9 Type 2 diabetes mellitus without complications; Z87.891 Personal history of nicotine dependence; Z95.0 Presence of cardiac pacemaker; Z95.5 Presence of coronary angioplasty implant and graft; Z79.01 Long term (current) use of anticoagulants; Z79.899 Other long term (current) drug therapy; Z79.84 Long term (current) use of oral hypoglycemic drugs; Z88.1 Allergy status to other antibiotic agents; Z88.0 Allergy status to penicillin; Z88.5 Allergy status to narcotic agent; Z88.8 Allergy status to other drugs, medicaments and biological substances
CPT/HCPCS: 36415; 70450; 70496; 80053; 80061; 81001; 82947; 83036; 84484; 85025; 85610; 93005; 93010; 93308; 93321; 97116; 97161; 97165; 97535; 99285-25; A9270; G0378; Q9967

== ENCOUNTER → 2025-03-02 | Outpatient (CLI) | payer MEDICARE, BC ==
[2025-03-02 19:25] LABS: BASOPHILS ABSOLUTE AUTO 0.05 K/mm3 (0.00-0.23); BASOPHILS PERCENT AUTO 1 % (0-2); EOSINOPHILS ABSOLUTE AUTO 0.09 K/mm3 (0.00-0.68); EOSINOPHILS PERCENT AUTO 2 % (0-6); Hematocrit 36.4 % (33.0-51.0); Hemoglobin 12.6 g/dL (11.5-16.0); IMMATURE GRAN ABSOLUTE AUTO 0.02 K/mm3 (0.00-0.10); IMMATURE GRAN PERCENT AUTO 0 % (0-1); LYMPHOCYTES ABSOLUTE AUTO 1.35 K/mm3 (0.84-5.20); LYMPHOCYTES PERCENT AUTO 27 % (21-46); MONOCYTES ABSOLUTE AUTO 0.59 K/mm3 (0.16-1.47); MONOCYTES PERCENT AUTO 12 % (4-13); Mean Corpuscular HGB Conc 34.6 g/dL (31.5-36.5); Mean Corpuscular Volume 90 fL (80-100); NEUTROPHILS ABSOLUTE AUTO 2.89 K/mm3 (1.96-9.15); NEUTROPHILS PERCENT AUTO 58 % (41-73); NRBC ABSOLUTE 0.00 K/mm3 (0.00-0.02); NRBC Auto 0.0 /100 WBC (0.0-0.2); Platelet Count 174 K/mm3 (150-400); RDW Coefficient Variation 12.6 % (11.7-14.2); RDW Standard Deviation 42.0 fL (35.1-46.3)
[2025-03-02 20:11] LABS: Alanine Aminotransfer (ALT/SGP 68 U/L (12-78); Albumin, Blood 3.9 g/dL (3.4-5.0); Albumin/Globulin Ratio 1.2 (0.8-1.8); Anion Gap 9 mmol/L (3-11); Aspartate Aminotrans (AST/SGOT 38 U/L (12-37); Bilirubin, Total 0.4 mg/dL (0.1-1.0); Blood Urea Nitrogen 39 mg/dL (8-24); CHOL/HDL RATIO 4.3; CO2, Blood 28 mmol/L (21-32); Calcium, Blood 10.1 mg/dL (8.5-10.1); Chloride, Blood 98 mmol/L (98-108); Cholesterol 190 mg/dL (50-200); Creatinine, Blood 1.26 mg/dL (0.40-1.00); Globulin, Blood 3.2 g/dL (2.2-4.0); Glucose, Blood 105 mg/dL (70-99); HDL Cholesterol 44 mg/dL (>39); LDL/HDL RATIO 2.2; Low Density Lipoprotein Chol 96 mg/dL (0-110); Potassium, Blood 4.1 mmol/L (3.5-5.5); Sodium, Blood 131 mmol/L (136-145); Total Protein, Blood 7.1 g/dL (6.4-8.2); Triglycerides 248 mg/dL (30-160); Very Low Density Lipoprot Chol 49 mg/dL (6-32)
== END ==
LOC: LAB 16:11 → LAB SHORT 16:11
PROVIDERS: Nurse Practitioner Family
DX: E11.69 Type 2 diabetes mellitus with other specified complication (principal)
CPT/HCPCS: 80053; 80061; 85025

== ENCOUNTER 2025-03-25 23:27 | Emergency (ER) | payer MEDICARE, BC ==
[~2025-03-25] VITALS: Ht 165.1 cm; Wt 74.8 kg
[2025-03-26 00:16] LABS: BASOPHILS ABSOLUTE AUTO 0.04 K/mm3 (0.00-0.23); BASOPHILS PERCENT AUTO 1 % (0-2); EOSINOPHILS ABSOLUTE AUTO 0.11 K/mm3 (0.00-0.68); EOSINOPHILS PERCENT AUTO 2 % (0-6); Hematocrit 34.9 % (33.0-51.0); Hemoglobin 12.4 g/dL (11.5-16.0); IMMATURE GRAN ABSOLUTE AUTO 0.02 K/mm3 (0.00-0.10); IMMATURE GRAN PERCENT AUTO 0 % (0-1); LYMPHOCYTES ABSOLUTE AUTO 1.43 K/mm3 (0.84-5.20); LYMPHOCYTES PERCENT AUTO 27 % (21-46); MONOCYTES ABSOLUTE AUTO 0.50 K/mm3 (0.16-1.47); MONOCYTES PERCENT AUTO 10 % (4-13); Mean Corpuscular HGB Conc 35.5 g/dL (31.5-36.5); Mean Corpuscular Volume 87 fL (80-100); NEUTROPHILS ABSOLUTE AUTO 3.11 K/mm3 (1.96-9.15); NEUTROPHILS PERCENT AUTO 60 % (41-73); NRBC ABSOLUTE 0.00 K/mm3 (0.00-0.02); NRBC Auto 0.0 /100 WBC (0.0-0.2); Platelet Count 181 K/mm3 (150-400); RDW Coefficient Variation 12.2 % (11.7-14.2); RDW Standard Deviation 39.2 fL (35.1-46.3)
[2025-03-26 00:54] LABS: Alanine Aminotransfer (ALT/SGP 56.0 U/L (12-78); Albumin, Blood 3.7 g/dL (3.4-5.0); Albumin/Globulin Ratio 1.1 (0.8-1.8); Anion Gap 11.0 mmol/L (3-11); Aspartate Aminotrans (AST/SGOT 37.0 U/L (12-37); Bilirubin, Total 0.5 mg/dL (0.1-1.0); Blood Urea Nitrogen 40.0 mg/dL (8-24); CO2, Blood 25.0 mmol/L (21-32); Calcium, Blood 9.6 mg/dL (8.5-10.1); Chloride, Blood 101.0 mmol/L (98-108); Creatinine, Blood 1.51 mg/dL (0.40-1.00); Globulin, Blood 3.4 g/dL (2.2-4.0); Glucose, Blood 125.0 mg/dL (70-99); Potassium, Blood 3.4 mmol/L (3.5-5.5); Sodium, Blood 134.0 mmol/L (136-145); Total Protein, Blood 7.1 g/dL (6.4-8.2)
[2025-03-26] MEDS ORDERED: Potassium Chloride 10 Meq Tablet SA PO ONE (02:20)
[2025-03-26] MEDS ORDERED: NS 1,000 ML IV SCH (02:20)
[2025-03-26 02:33] LABS: Magnesium, Blood 1.6 mg/dL (1.6-2.4); Phosphorus, Blood 3.5 mg/dL (2.5-4.9)
[2025-03-26 02:43] LABS: Source, Urine Clean Catch
[2025-03-26 02:51] LABS: Bilirubin, Urine Neg (Neg); Glucose Qualitative, Urine Neg (Neg); Ketones, Urine Neg (Neg); Leukocyte Esterase, Urine 1+ (Neg); Protein, Urine Neg (Neg); Specific Gravity, Urine 1.015 (1.003-1.022); Urobilinogen, Urine NORM (Normal)
[2025-03-26 02:59] LABS: Color, Urine Yellow (P-Yellow)
[2025-03-26 03:00] LABS: Red Blood Cells, Urine Not Seen /hpf (0-2)
[2025-03-26] MEDS ORDERED: CEFP200 PO (03:29)
[2025-03-26 03:30] VITALS: BP 154/65
[2025-03-26] MEDS ORDERED: CefTRIAXone Sodium 1,000 MG in NS 50 ML IV ONE (03:30)
== END 2025-03-26 04:45 | disposition home or self-care (01) ==
LOC: ER 23:27
PROVIDERS: Emergency Medicine
DX: N39.0 Urinary tract infection, site not specified (principal); E86.0 Dehydration; R47.1 Dysarthria and anarthria; E11.9 Type 2 diabetes mellitus without complications; M19.90 Unspecified osteoarthritis, unspecified site; K21.9 Gastro-esophageal reflux disease without esophagitis; I11.0 Hypertensive heart disease with heart failure; I50.9 Heart failure, unspecified; Z88.5 Allergy status to narcotic agent; Z88.0 Allergy status to penicillin; Z79.899 Other long term (current) drug therapy; Z79.84 Long term (current) use of oral hypoglycemic drugs; Z87.891 Personal history of nicotine dependence
CPT/HCPCS: 80053; 81001; 83735; 84100; 85025; 87077; 87086; 87186; 93005; 93010; 96374; 99285-25; A9270; J0696

== ENCOUNTER 2025-04-08 10:25 | Inpatient (IN) | payer MEDICARE, BC ==
[~2025-04-08] VITALS: Ht 170.2 cm; Wt 73.5 kg
[~2025-04-08 10:25] MED LIST changes: +CEFP200 PO
[2025-04-08 12:02] LABS: Source, Urine Foley catheter
[2025-04-08 12:04] LABS: BASOPHILS ABSOLUTE AUTO 0.06 K/mm3 (0.00-0.23); BASOPHILS PERCENT AUTO 1 % (0-2); EOSINOPHILS ABSOLUTE AUTO 0.13 K/mm3 (0.00-0.68); EOSINOPHILS PERCENT AUTO 3 % (0-6); Hematocrit 37.5 % (33.0-51.0); Hemoglobin 13.3 g/dL (11.5-16.0); IMMATURE GRAN ABSOLUTE AUTO 0.02 K/mm3 (0.00-0.10); IMMATURE GRAN PERCENT AUTO 0 % (0-1); LYMPHOCYTES ABSOLUTE AUTO 1.13 K/mm3 (0.84-5.20); LYMPHOCYTES PERCENT AUTO 25 % (21-46); MONOCYTES ABSOLUTE AUTO 0.46 K/mm3 (0.16-1.47); MONOCYTES PERCENT AUTO 10 % (4-13); Mean Corpuscular HGB Conc 35.5 g/dL (31.5-36.5); Mean Corpuscular Volume 87 fL (80-100); NEUTROPHILS ABSOLUTE AUTO 2.82 K/mm3 (1.96-9.15); NEUTROPHILS PERCENT AUTO 61 % (41-73); NRBC ABSOLUTE 0.00 K/mm3 (0.00-0.02); NRBC Auto 0.0 /100 WBC (0.0-0.2); Platelet Count 165 K/mm3 (150-400); RDW Coefficient Variation 12.5 % (11.7-14.2); RDW Standard Deviation 39.8 fL (35.1-46.3)
[2025-04-08 12:19] LABS: Bilirubin, Urine Neg (Neg); Color, Urine Yellow (P-Yellow); Glucose Qualitative, Urine Neg (Neg); Ketones, Urine Neg (Neg); Leukocyte Esterase, Urine Neg (Neg); Protein, Urine Neg (Neg); Specific Gravity, Urine 1.005 (1.003-1.022); Urobilinogen, Urine NORM (Normal)
[2025-04-08 12:23] LABS: Alanine Aminotransfer (ALT/SGP 64.0 U/L (12-78); Albumin, Blood 4.0 g/dL (3.4-5.0); Albumin/Globulin Ratio 1.1 (0.8-1.8); Anion Gap 9.0 mmol/L (3-11); Aspartate Aminotrans (AST/SGOT 47.0 U/L (12-37); Bilirubin, Total 0.6 mg/dL (0.1-1.0); Blood Urea Nitrogen 21.0 mg/dL (8-24); CO2, Blood 27.0 mmol/L (21-32); Calcium, Blood 9.8 mg/dL (8.5-10.1); Chloride, Blood 101.0 mmol/L (98-108); Creatinine, Blood 1.23 mg/dL (0.40-1.00); Globulin, Blood 3.6 g/dL (2.2-4.0); Glucose, Blood 123.0 mg/dL (70-99); Potassium, Blood 4.3 mmol/L (3.5-5.5); Sodium, Blood 133.0 mmol/L (136-145); Total Protein, Blood 7.6 g/dL (6.4-8.2)
[2025-04-08] MEDS ORDERED: NS 1,000 ML IV SCH ×2 (14:05→18:05)
[2025-04-08] MEDS ORDERED: Midazolam HCL 1 MG/ML 5MLVIAL IV ONE (15:15)
[2025-04-08 16:01] LABS: Prothrombin Time Results 24.9 Sec (9.7-11.5)
[2025-04-08 16:55] LABS: U Amphetamine Screen Not Detected; U Barbituate Screen Not Detected; U Benzodiazapine Screen Not Detected; U Buprenorphine Screen Not Detected; U Cannabinoids Screen Not Detected; U Cocaine Screen Not Detected; U Methadone Screen Not Detected; U Methamphetamine Screen Not Detected; U Opiates Screen Not Detected; U Oxycodone Screen Not Detected; U Phencyclidine Screen Not Detected
[2025-04-08] MEDS ORDERED: HydrALAZINE HCl 20 MG / ML 1ML Vial IV PRN (17:55)
[2025-04-08] MEDS ORDERED: Insulin Human Lispro 100 Units/ML 3ML Syringe SC SCH (18:00)
[2025-04-08] MEDS ORDERED: FLU VACC TS2025(65UP)/MF59C/PF 45 MCG/0.5 ML SYRINGE IM SCH (18:05)
[2025-04-08 19:00] LABS: Influenza A, PCR NEGATIVE (NEGATIVE); Influenza B, PCR NEGATIVE (NEGATIVE); Resp Syncytial Virus, PCR NEGATIVE (NEGATIVE); SARS-Cov-2 (COVID-19) PCR, MMC NEGATIVE (NEGATIVE)
[2025-04-08 19:33] LABS: pH Blood Venous 7.44 (7.34-7.37)
[2025-04-08 20:29] VITALS: BP 137/89
--- NOTE | 2025-04-08 20:30 | NUR ---
ASSUMPTION OF CARE ASSUMED CARE OF PT AT APPROXIMATELY 2014. PT ABLE TO MUMBLE FIRST NAME BUT UNABLE TO ANSWER ORIENTATION QUESTIONS. PT UNABLE TO FOLLOW COMMANDS. PT HAS BAUM IN PLACE DRAINING CLEAR YELLOW URINE. IV KEPPRA GIVEN PER EMAR. BLANCHABLE REDNESS NOTED ON BUTTOCS. PROPHYLACTIC MEPILEX APPLIED TO SACRUM. PT VERY LETHARGIC. DOES NOT VOLUNTARILY OPEN EYES. NPO AT THIS TIME PENDING CHANGE IN MENTATION/ORIENTATION. TROPONIN ELEVATED 383. MD NOTIFIED. WILL TREND TROPONIN AND CONTINUE TO MONITOR.
[2025-04-08] MEDS ORDERED: Heparin Sodium,Porcine/0.5 NS 500 ML IV SCH (23:15)
[2025-04-08 23:30] VITALS: BP 108/81
[2025-04-09] VITALS (7 sets, daily range): BP systolic 95–149; BP diastolic 42–100
--- NOTE | 2025-04-09 | NUR ---
0000 VITALS FOR 10/2 D/T OTHER RN BEING LOCKED INTO VITAL SIGN CHARTING, UNABLE TO CHART AT THIS TIME. SOME VITALS PULLED OVER. OTHER VITAL SIGNS: TEMP 98.2 RR 18 HR 69 SPO2 97% ON RA BP 108/81 MAP 91
[2025-04-09 03:57] LABS: BASOPHILS ABSOLUTE AUTO 0.02 K/mm3 (0.00-0.23); BASOPHILS PERCENT AUTO 0 % (0-2); EOSINOPHILS ABSOLUTE AUTO 0.01 K/mm3 (0.00-0.68); EOSINOPHILS PERCENT AUTO 0 % (0-6); Hematocrit 35.5 % (33.0-51.0); Hemoglobin 12.7 g/dL (11.5-16.0); IMMATURE GRAN ABSOLUTE AUTO 0.02 K/mm3 (0.00-0.10); IMMATURE GRAN PERCENT AUTO 0 % (0-1); LYMPHOCYTES ABSOLUTE AUTO 1.24 K/mm3 (0.84-5.20); LYMPHOCYTES PERCENT AUTO 16 % (21-46); MONOCYTES ABSOLUTE AUTO 0.68 K/mm3 (0.16-1.47); MONOCYTES PERCENT AUTO 9 % (4-13); Mean Corpuscular HGB Conc 35.8 g/dL (31.5-36.5); Mean Corpuscular Volume 88 fL (80-100); NEUTROPHILS ABSOLUTE AUTO 5.81 K/mm3 (1.96-9.15); NEUTROPHILS PERCENT AUTO 75 % (41-73); NRBC ABSOLUTE 0.00 K/mm3 (0.00-0.02); NRBC Auto 0.0 /100 WBC (0.0-0.2); Platelet Count 182 K/mm3 (150-400); RDW Coefficient Variation 12.4 % (11.7-14.2); RDW Standard Deviation 39.8 fL (35.1-46.3)
[2025-04-09 04:17] LABS: Prothrombin Time Results 21.7 Sec (9.7-11.5)
[2025-04-09 04:20] LABS: Anion Gap 8.0 mmol/L (3-11); Blood Urea Nitrogen 22.0 mg/dL (8-24); CO2, Blood 29.0 mmol/L (21-32); Calcium, Blood 9.3 mg/dL (8.5-10.1); Chloride, Blood 101.0 mmol/L (98-108); Creatinine, Blood 1.3 mg/dL (0.40-1.00); Glucose, Blood 161.0 mg/dL (70-99); Magnesium, Blood 2.0 mg/dL (1.6-2.4); Potassium, Blood 3.5 mmol/L (3.5-5.5); Sodium, Blood 134.0 mmol/L (136-145)
--- NOTE | 2025-04-09 04:30 | NUR ---
0400 VITAL SIGNS FOR 10/ D/T OTHER RN BEING LOCKED INTO VITAL SIGN CHARTING, UNABLE TO CHART AT THIS TIME. SOME VITALS PULLED OVER. OTHER VITAL SIGNS: TEMP 98.9 RR 16 HR 64 SPO2 98% ON RA BP 148/57 MAP 84
--- NOTE | 2025-04-09 05:14 | NUR ---
SHIFT SUMMARY Pt transferred from ER at approximately 2014. Brunner in place draining clear yellow urine. Pt shouts in pain with all movement/cares, but is unable to verbalize specifically what hurts or describe the pain. Pt able to reposition self in bed. Powerglide placed in right upper arm this shift. Blood return noted. Troponin trending up, continue to trend Q2H per MD Ramos. Heparin gtt running at 15units/kg/hr. Echo to be done 04/09. 300mg rectal aspirin given. IV keppra given. NS running at 75mL/hr Pt on tele running SR 60s-80s with occasional A-pacing. Pt NPO at this time. VSS. Daughter updated over the phone. Admission history done per MD note. Pt unable to answer questions at this time. Will pass on to day shift RN to fax pharmacy to complete med rec.
[2025-04-09] MEDS ORDERED: Dose Adjust by Pharmacy XX STA ×2 (09:35→15:19)
[2025-04-09] MEDS ORDERED: Lidocaine 2% Viscous Soln 20 ML,Nystatin 100,000 Unit/ml Susp 20 ML,Mag Hydrox/Al Hydro... MT PRN (14:15)
[2025-04-09] MEDS ORDERED: OXYC5 PO (15:01)
[2025-04-09] MEDS ORDERED: TORSE20 PO (15:02)
[2025-04-09] MEDS ORDERED: LETROZOLE2.5 M3 PO (15:04)
[2025-04-09] MEDS ORDERED: VITAMIN D5000 UNIT PO (15:34)
[2025-04-09] MEDS ORDERED: 1/2 NS 250ml250 ML (15:34)
[2025-04-09] MEDS ORDERED: Insulin Human Lispro 100 Units/ML 3ML Syringe SC SCH (16:30)
--- NOTE | 2025-04-09 18:21 | NUR ---
EOS: PATIENT WITH DRAMATIC IMPROVEMENT TO MENTAION, AT THE BEGGINING OF THE SHIFT WAS A/O X SELF, NOW PATIENT ABLE TO MAKE NEEDS KNOWN, PERSON PLACE SITUATION. IS STILL FATIGUED. HOWEVER, FOLLWOING COMMANDS, PASSED RN BEDSIDE SWALLOW WELL. NS DC'D DUE TO APPROPRIATE PO INTAKE. OF NOTE PATIENT WITH PROBABLE SKIN TEAR BUT DUE TO LOCATION POTENTIAL STAGE 2 INJURY BETWEEN BUTTOCKS AT THE BOTTOM OF TAIL BONE, MD NOTIFIED. MEPILEX IN PLACE. Q2 REPOSITIONING AND OFFLOADING IN PLACE. PATIENT WHILE AWAKE SR IN THE 70'S WHILE ASLEEP OR AT REST A PACED 60. DENIES CHEST PAIN PRESSURE OR SOB AT REST. PATIENT BAUM IN PLACE DRAINING TO GRAVITY, PCT PROVIDED CATHETER CARE AT START OF SHIFT AND WITH BM. HEPARIN DRIP DECREASED BY 1 UNIT, SEE SEP. HOME MED REC COMPLETE AND ORDERED TO START TONIGHT. DAUGHTER CARL AT BEDSIDE MOST OF THE DAY. CURRENT PATIENT FAMILY OR THI SRN WITH NO ACUTE CONCERN PLAN OF CARE CONTINUES.
--- NOTE | 2025-04-09 21:30 | NUR ---
ASSUMPTION OF CARE ASSUMED CARE OF PT AT APPROXIMATELY 1900. PT VERY LETHARGIC. ROUSABLE TO VOICE. PT AOX4. PT COOPERATIVE WITH CARES. VSS. SR ON TELE WITH OCCASIONAL A-PACING. BAUM IN PLACE DRAINING CLEAR YELLOW URINE. NO S/S INFECTION AT THIS TIME. PT ABLE TO TAKE PILLS WHOLE WITH WATER. CALL LIGHT WITHIN REACH AND PT ABLE TO MAKE NEEDS KNOWN.
[2025-04-09] MEDS ORDERED: Clarify Drug Order XX ONE (23:40)
[2025-04-10 03:35] VITALS: BP 113/52
[2025-04-10 04:19] LABS: BASOPHILS ABSOLUTE AUTO 0.04 K/mm3 (0.00-0.23); BASOPHILS PERCENT AUTO 1 % (0-2); EOSINOPHILS ABSOLUTE AUTO 0.10 K/mm3 (0.00-0.68); EOSINOPHILS PERCENT AUTO 2 % (0-6); Hematocrit 31.2 % (33.0-51.0); Hemoglobin 10.9 g/dL (11.5-16.0); IMMATURE GRAN ABSOLUTE AUTO 0.01 K/mm3 (0.00-0.10); IMMATURE GRAN PERCENT AUTO 0 % (0-1); LYMPHOCYTES ABSOLUTE AUTO 1.46 K/mm3 (0.84-5.20); LYMPHOCYTES PERCENT AUTO 24 % (21-46); MONOCYTES ABSOLUTE AUTO 0.65 K/mm3 (0.16-1.47); MONOCYTES PERCENT AUTO 11 % (4-13); Mean Corpuscular HGB Conc 34.9 g/dL (31.5-36.5); Mean Corpuscular Volume 88 fL (80-100); NEUTROPHILS ABSOLUTE AUTO 3.83 K/mm3 (1.96-9.15); NEUTROPHILS PERCENT AUTO 63 % (41-73); NRBC ABSOLUTE 0.00 K/mm3 (0.00-0.02); NRBC Auto 0.0 /100 WBC (0.0-0.2); Platelet Count 135 K/mm3 (150-400); RDW Coefficient Variation 12.7 % (11.7-14.2); RDW Standard Deviation 40.7 fL (35.1-46.3)
[2025-04-10 04:43] LABS: Anion Gap 7.0 mmol/L (3-11); Blood Urea Nitrogen 23.0 mg/dL (8-24); CO2, Blood 26.0 mmol/L (21-32); Calcium, Blood 8.4 mg/dL (8.5-10.1); Chloride, Blood 105.0 mmol/L (98-108); Creatinine, Blood 1.16 mg/dL (0.40-1.00); Glucose, Blood 116.0 mg/dL (70-99); Potassium, Blood 3.1 mmol/L (3.5-5.5); Sodium, Blood 135.0 mmol/L (136-145)
[2025-04-10] MEDS ORDERED: Clarify Drug Order XX ONE (05:15)
--- NOTE | 2025-04-10 05:50 | NUR ---
SHIFT SUMMARY POTASSIUM THIS MORNING IS 3.1. MD LOONEY NOTIFIED. HEPARIN GTT RUNNING PER EMAR. BAUM REMOVED WITH NO OUTPUT NOTED FOR 6HRS POST REMOVAL. BLADDER SCAN DONE YIELDING ONLY 26 IN THE BLADDER. PT DECLINES FEELING URGE TO URINATE OR DESIRE TO GET UP TO COMMODE TO ATTEMPT. PT ABLE TO REPOSITION SELF IN BED. POWERGLIDE TO RIGHT UPPER ARM. NO BLOOD RETURN NOTED. PT ON TELE, HR 60S-80S WITH OCCASIONAL A-PACING. MINCED MOIST, CC DIET. VSS. PT AOX4 THIS SHIFT. VERY LETHARGIC STILL AND SOMETIMES DIFFICULT TO ROUSE. NO C/O CHEST PAIN/PRESSURE. NO C/O SOB.
[2025-04-10] MEDS ORDERED: NS 250 ML IV PRN (06:15)
[2025-04-10 07:25] VITALS: BP 149/77
[2025-04-10] MEDS ORDERED: Nitrofurantoin/Nitrofuran Mac 100 MG Cap PO SCH (09:00)
[2025-04-10] MEDS ORDERED: Cholecalciferol 1000 Unit Tablet (=25MCG) PO SCH (09:00)
[2025-04-10 11:17] VITALS: BP 155/65
[2025-04-10 16:43] VITALS: BP 129/58
--- NOTE | 2025-04-10 18:40 | NUR ---
SHIFT SUMMARY: A/OX2: SELF AND SITUATION IN THE MORNING WITH A LOT OF CONFUSION, A/OX4 BY AFTERNOON WITH IMPROVED MENTATION, ABLE TO COMMUNICATE NEEDS, NEEDS EXTRA TIME TO FIND WORDS, PT REPORTS OCCASIONAL HEADACHE ACROSS FOREHEAD THAT IS SHARP BUT RESOLVES QUICKLY ON IT'S OWN, ANXIOUS AND FRUSTERATED ABOUT HOSPITALIZATION. PACEMAKER: A PACED, NSR, HR 60'S. SOTALOL MAY CAUSE QTC PROLONGATION, ELECTRIC GAS APPLIANCES DEMONSTRATOR MEASURED .510 AT HIGHEST INTERVAL, HEPARIN GTT RUNNING PER ORDER, MD MATUTE DC'D HEPARIN GTT TONIGHT SEE ORDER. UP TO BEDSIDE COMMODE, UP TO CHAIR, AND UP WITH PT, 1 PERSON ASSIST W/GAITBELT AND FWW. DAUGHTER GERRY AT BEDSIDE THIS AFTERNOON.
[2025-04-10 20:11] VITALS: BP 111/50
[2025-04-10 23:39] VITALS: BP 142/67
--- NOTE | 2025-04-11 01:22 | NUR ---
TRANSFER NOTE HAND OFF RECEIVED FROM EXERCISE INSTRUCTORGALI MCGRAW. PT ARRIVED TO FLOOR VIA GURNEY. PERSONAL POSSESSIONS WITH PT. CALL BUTTON WITHIN REACH. TELE IN PLACE.
--- NOTE | 2025-04-11 01:30 | NUR ---
TRANSFER ASSUMED CARE OF PT AT APPROXIMATELY 1900. PT UP TO CHAIR FOR DINNER. AMBULATES WELL WITH FWW. X1 SBA. PT GIVEN SCHEDULED MEDS PER EMAR. VSS. NO C/O CHEST PAIN/PRESSURE. CONTINENT OF BOWEL/BLADDER. PAIN MANAGED WITH MEDICATION PER EMAR. STATUS CHANGED TO MEDICAL. PT TRANSFERRED TO ROOM 338 AT APPROXIMATELY 0100. REPORT CALLED TO GALI POND. AT TIME OF TRANSFER, PT IN STABLE CONDITION. NO SIGNS OF DISTRESS. PT RESTING COMFORTABLY IN BED. AOX4. ABLE TO MAKE ALL NEEDS KNOWN.
--- NOTE | 2025-04-11 04:02 | NUR ---
SHIFT SUMMARY; PT TRANSFERRED FROM PCU TO MEDICAL FLOOR AT 0130. PT A/O X4, PLEASANT, AND X1 ASSIST W/ FWW. L FA IV REMOVED PER PT'S REQUEST, R UPPER ARM POWER GLIDE DRESSING CLEAN, DRY, AND INTACT. PT IS ROOM AIR. SCATTERED BRUISING SEEN THROUGHOUT. PT ON TELE READING NSR ATRIAL PACED AT 60 BPM. AT 0216 TELETECH NOTIFIED SUPERVISING RN OF QTC LENGTH OF 0.48. CALL LIGHT WITHIN REACH AND BED IN LOW POSITION.
[2025-04-11 04:31] VITALS: BP 140/56
[2025-04-11 06:29] LABS: Hematocrit 30.4 % (33.0-51.0); Hemoglobin 10.6 g/dL (11.5-16.0); Platelet Count 124 K/mm3 (150-400)
[2025-04-11 07:03] LABS: Anion Gap 6.0 mmol/L (3-11); Blood Urea Nitrogen 19.0 mg/dL (8-24); CO2, Blood 27.0 mmol/L (21-32); Calcium, Blood 8.5 mg/dL (8.5-10.1); Chloride, Blood 108.0 mmol/L (98-108); Creatinine, Blood 0.95 mg/dL (0.40-1.00); Glucose, Blood 131.0 mg/dL (70-99); Potassium, Blood 3.7 mmol/L (3.5-5.5); Sodium, Blood 137.0 mmol/L (136-145)
[2025-04-11 07:27] VITALS: BP 142/52
--- NOTE | 2025-04-11 13:49 | NUR ---
Patient discharged home with daughter and HH referral. Patient belongings in patient possession at time of discharge. Discussed medications, education, and instruction with patient prior to leaving. IV removed without difficulty, tip intact and site without swelling. Patient transported via wheelchair to entrance.
== END 2025-04-11 13:08 | disposition home health service (06) | DRG 91 ==
LOC: ER 10:25 → PCU 10:26 → MEDS 04-11 01:11
PROVIDERS: Emergency Medicine; Nurse Practitioner Acute Care; Student in an Organized Health Care Education/Training Program; ADMIT Student in an Organized Health Care Education/Training Program
PROC: 0T9B70Z Drainage of Bladder with Drainage Device, Via Natural or Artificial Opening (ICD-10-PCS; principal; 2025-04-08)
DX: G92.8 Other toxic encephalopathy (principal); I21.A1 Myocardial infarction type 2; I13.0 Hypertensive heart and chronic kidney disease with heart failure and stage 1 through stage 4 chronic kidney disease, or unspecified chronic kidney disease; N17.9 Acute kidney failure, unspecified; I50.32 Chronic diastolic (congestive) heart failure; N18.31 Chronic kidney disease, stage 3a; I25.10 Atherosclerotic heart disease of native coronary artery without angina pectoris; G40.909 Epilepsy, unspecified, not intractable, without status epilepticus; I48.0 Paroxysmal atrial fibrillation; E11.22 Type 2 diabetes mellitus with diabetic chronic kidney disease; E66.01 Morbid (severe) obesity due to excess calories; Z86.73 Personal history of transient ischemic attack (TIA), and cerebral infarction without residual deficits; E78.5 Hyperlipidemia, unspecified; M81.0 Age-related osteoporosis without current pathological fracture; R33.9 Retention of urine, unspecified; K21.9 Gastro-esophageal reflux disease without esophagitis; Z88.0 Allergy status to penicillin; Z88.1 Allergy status to other antibiotic agents; Z88.8 Allergy status to other drugs, medicaments and biological substances; Z90.710 Acquired absence of both cervix and uterus; Z90.89 Acquired absence of other organs; Z95.5 Presence of coronary angioplasty implant and graft; Z98.890 Other specified postprocedural states; Z68.28 Body mass index [BMI] 28.0-28.9, adult; Z93.3 Colostomy status; Z90.49 Acquired absence of other specified parts of digestive tract; Z87.891 Personal history of nicotine dependence
CPT/HCPCS: 36415; 51702; 51798; 70450; 74177; 80048; 80053; 81003; 82140; 82803; 82947; 83735; 84484; 85014; 85018; 85025; 85049; 85520; 85610; 87637; 93005; 93010; 93308; 93321; 94762; 96365-59; 96366; 96366-59; 96372-59; 96375; 96375-59; 96376; 97116; 97162; 99285-25; A9270; G0378; J1644; J1953; J2250; J3480; J7030; J7050; Q9967